=== PATIENT | male | born 1935 | race Caucasian/White ===

== ENCOUNTER 2016-11-17 13:14 | Outpatient (CLI) | payer MEDICARE, OTHER ==
[2016-11-17] MEDS ORDERED: BARIUM SULFATE 135 ML BOTTLE PO ONE (14:11)
[2016-11-17] MEDS ORDERED: BARIUM SULFATE 454 GM TUBE PO ONE (14:11)
== END 2016-11-17 13:15 | disposition home or self-care (01) ==
DX: R13.10 Dysphagia, unspecified (principal); Z85.810 Personal history of malignant neoplasm of tongue
CPT/HCPCS: 74230; 92611; A9270; G8996; G8997; G8998

== ENCOUNTER 2016-12-09 13:38 | Outpatient (CLI) | payer MEDICARE, OTHER | END 2016-12-09 13:39 | disposition home or self-care (01) | DX: M35.3 Polymyalgia rheumatica (principal) ==

== ENCOUNTER 2016-12-18 22:04 | Emergency (ER) | payer MEDICARE, OTHER | END 2016-12-19 | disposition home or self-care (01) | DX: S31.109A Unspecified open wound of abdominal wall, unspecified quadrant without penetration into peritoneal cavity, initial encounter (principal); X58.XXXA Exposure to other specified factors, initial encounter; I10 Essential (primary) hypertension; E03.9 Hypothyroidism, unspecified; Z79.02 Long term (current) use of antithrombotics/antiplatelets; Z79.82 Long term (current) use of aspirin ==

== ENCOUNTER 2016-12-22 13:02 | Outpatient (CLI) | payer MEDICARE, OTHER | END 2016-12-22 13:03 | disposition home or self-care (01) | DX: M35.3 Polymyalgia rheumatica (principal) ==

== ENCOUNTER 2017-01-07 12:49 | Outpatient (CLI) | payer MEDICARE, OTHER | END 2017-01-07 12:50 | disposition home or self-care (01) | DX: M35.3 Polymyalgia rheumatica (principal) ==

== ENCOUNTER 2017-02-05 12:51 | Outpatient (CLI) | payer MEDICARE, OTHER | END 2017-02-05 12:52 | disposition home or self-care (01) | DX: M35.3 Polymyalgia rheumatica (principal) ==

== ENCOUNTER 2017-03-24 13:55 | Outpatient (CLI) | payer MEDICARE, OTHER ==
--- NOTE | 2017-03-24 16:58 | XRAY Report ---
TWO VIEW CHEST: 03/24/2017 CLINICAL INDICATION: Cough. COMPARISON: 12/24/2015 Frontal and lateral views of the chest demonstrate a normal cardiac silhouette. Postoperative change s of previous cardiac surgery are stable. There is new parenchymal opacity at the left apex. The ap pearance would be unusual for pneumonia. Consider chest CT for further evaluation. No effusion or p neumothorax is present. IMPRESSION: POSTOPERATIVE CHANGES. NEW PARENCHYMAL OPACITY AT THE LEFT APEX, WHICH WOULD BE UNUSUAL FOR A PNEUMONIA. CONSIDER CHEST CT FOR FURTHER EVALUATION. JOB #: [id number] EXT JOB #:[id number]
== END 2017-03-24 13:56 | disposition home or self-care (01) ==
LOC: DI 13:55
PROVIDERS: ATTEND Internal Medicine
DX: R91.8 Other nonspecific abnormal finding of lung field (principal)
CPT/HCPCS: 71020

== ENCOUNTER 2017-03-26 13:01 | Outpatient (CLI) | payer MEDICARE, OTHER ==
[2017-03-26 13:25] LABS: CREATININE 1.4 mg/dL (0.6-1.2)
== END 2017-03-26 13:02 | disposition home or self-care (01) ==
LOC: LAB 13:01
PROVIDERS: ATTEND Internal Medicine
DX: Z79.899 Other long term (current) drug therapy (principal)
CPT/HCPCS: 36415; 82565

== ENCOUNTER 2017-03-26 14:35 | Outpatient (CLI) | payer MEDICARE, OTHER ==
[2017-03-26] MEDS ORDERED: IOPAMIDOL-300 100 ML VIAL IVP ONE (16:04)
--- NOTE | 2017-03-27 22:06 | CT Report ---
EXAM: CT CHEST EXAM DATE: 03/26/2017 04:05 p.m. CLINICAL HISTORY: Abnormal chest x-ray with left upper lobe density. COMPARISONS: Chest x-ray 03/24/2017, neck CT 01/13/2010. TECHNIQUE: Routine helical CT imaging was performed through the chest. IV contrast: 50 mL Isovue-300. Reconstructions: Coronal and sagittal. In accordance with CT protocol optimization, one or more of the following dose reduction techniques w ere utilized for this exam: automated exposure control, adjustment of mA and/or KV based on patient s ize, or use of iterative reconstructive technique. FINDINGS: Lungs/Pleura: Apical paramedian radiation fibrotic changes. No definitive suspicious mass or nodule s een. No pneumonia or effusion. Mild diffuse tracheobronchiectasis, with mild emphysema. Mediastinum: No bulky adenopathy. Previous aortic valve replacement. Coronary calcifications. Heart s ize mildly enlarged. Bones: Previous median sternotomy. Mild scoliosis. Visualized Abdomen: Unremarkable. Other: None. IMPRESSION: 1. 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 No definitive suspicious mass or nodule seen. 2. Mild emphysema and tracheobronchiectasis. 3. Previous aortic valve replacement. [facility] Referring Provider Line: [phone] SITE ID: [id number]
== END 2017-03-26 14:36 | disposition home or self-care (01) ==
LOC: DI 14:35
PROVIDERS: ATTEND Internal Medicine
DX: J43.9 Emphysema, unspecified (principal); J47.9 Bronchiectasis, uncomplicated; Z95.2 Presence of prosthetic heart valve
CPT/HCPCS: 36415; 71260; 82565; Q9967

== ENCOUNTER 2017-08-31 08:00 | Outpatient (CLI) | payer MEDICARE, OTHER | END 2017-08-31 08:01 | disposition home or self-care (01) | LOC: LAB.R 08:00 | PROVIDERS: ATTEND Internal Medicine | DX: M35.3 Polymyalgia rheumatica (principal) | CPT/HCPCS: 85651; 86140 ==

== ENCOUNTER 2017-11-13 04:26 | Outpatient (CLI) | payer MEDICARE, OTHER | END 2017-11-13 04:27 | disposition critical access hospital (66) | LOC: EMS 04:26 | PROVIDERS: ATTEND Surgery | DX: R11.2 Nausea with vomiting, unspecified (principal); M54.9 Dorsalgia, unspecified; R53.1 Weakness; R09.89 Other specified symptoms and signs involving the circulatory and respiratory systems; W18.30XA Fall on same level, unspecified, initial encounter; Y92.009 Unspecified place in unspecified non-institutional (private) residence as the place of occurrence of the external cause | CPT/HCPCS: A0425; A0429 ==

== ENCOUNTER 2017-11-13 04:52 | Inpatient (IN) | payer MEDICARE, OTHER ==
--- NOTE | 2017-11-13 05:06 | ED Physician Documentation ---
History of Present Illness - Stated complaint Stated Complaint: FLU LIKE SYMPTOMS - Chief complaint Chief Complaint: Fever - History obtained from History obtained from: Family, EMS, Other (patient unable to contribute to HPI due to lethargy and obtundation) - History of Present Illness Timing: Enter time (01:00), Today - Additonal information Additional information: patient is obtunded on my exam, thus the HPI is from patient's (in ED at bedside) and EMS report. says at 1 AM she woke due to patient shaking, followed by vomiting. she says he then stood up and quickly fell (unclear what caused him to fall) and that he hit his head. Medics report that they were able to ascertain from patient that he has generalized body aches and "feels like he was hit by a truck ". Per EMS report, patient initially had pulse ox of 90% but en route this steadily dropped to as low as 60s. On arrival to ED, pulse ox is lower 50s Review of Systems Unable to obtain: Other (limited HPI due to AMS) Constitutional: reports: Chills, Myalgias, Fatigue. denies: Fever (did not measure temperature at home) Respiratory: denies: Dyspnea, Cough GI: reports: Vomiting Neurologic: reports: Altered mental status, Head injury PD PAST MEDICAL HISTORY - Past Medical History Cardiovascular: Hypertension Endocrine/Autoimmune: HyPOthyroidism Psych: Depression - Past Surgical History Past Surgical History: Yes General: Appendectomy HEENT: Tonsil/Adenoidectomy - Present Medications Home Medications: Ambulatory Orders Medication Instructions Recorded Confirmed Aspirin/Caffein/Dihydrocodeine 2 cap PO DAILY 12/18/16 12/18/16 [Qqsimaw-Wdhp-Zwisgltkyjyad Cap] Celecoxib 200 mg PO DAILY 12/18/16 12/18/16 Cholecalciferol (Vitamin D3) 1 tab PO DAILY 12/18/16 12/18/16 [Vitamin D3] Clopidogrel Bisulfate [Plavix] 1 tab PO DAILY 12/18/16 12/18/16 Levothyroxine Sodium [Levo-T] 1 tab PO DAILY 12/18/16 12/18/16 Losartan [Cozaar] 12.5 mg PO DAILY 12/18/16 12/18/16 PARoxetine [Paxil] 10 mg PO DAILY 12/18/16 12/18/16 diazePAM [Valium] 2.5 mg PO DAILY 12/18/16 12/18/16 predniSONE [Prednisone] 15 mg PO QPM 12/18/16 12/18/16 - Allergies Allergies/Adverse Reactions: Allergies Allergy/AdvReac Type Severity Reaction Status Date / Time No Known Drug Allergies Allergy Verified 11/13/17 05:01 - Social History Does the pt smoke?: No Smoking Status: Never smoker Does the pt drink ETOH?: Yes Does the pt have substance abuse?: No - Immunizations Immunizations are current?: Yes - POLST Patient has POLST: No PD ED PE NORMAL - Vitals Vital signs reviewed: Yes - General General: No acute distress (despite low pulse ox (50s with good pleth that correlates with pulse), NAD including no respiratory distress; breathing regular and without apparent difficulty. no cyanosis), Well developed/nourished - HEENT HEENT: PERRL, EOMI, Other (dry mucous membranes) - Neck Neck: Supple, no meningeal sign - Cardiac Cardiac: RRR, Other (3/6 ANTONELLA most pronounced at base) - Respiratory Respiratory: No respiratory distress, Other (markedly decreased breath sound on right) - Abdomen Abdomen: Soft, Non tender, Non distended - Derm Derm: Normal color, Warm and dry, No rash - Extremities Extremities: No edema - Neuro Eye Opening: To Voice (briefly) Motor: Obeys Commands (obeys few commands and only with repeated prompting) Verbal: Incomprehensible GCS Score: 11 Results - Vitals Vitals: Vital Signs - 24 hr 11/13/17 11/13/17 11/13/17 04:54 06:00 06:30 Temperature 37.1 C Heart Rate 84 65 78 Respiratory 18 17 21 Rate Blood Pressure 92/44 L 83/41 L 114/66 O2 Saturation 77 L 95 98 11/13/17 11/13/17 11/13/17 06:59 07:22 07:51 Temperature Heart Rate 78 74 72 Respiratory 18 18 20 Rate Blood Pressure 101/54 L 101/59 L 92/74 O2 Saturation 98 96 96 Oxygen O2 Source Non-rebreather mask Oxygen Flow Rate 16 - Labs Labs: Laboratory Tests 11/13/17 11/13/17 11/13/17 05:00 05:10 05:15 WBC 4.3 L RBC 4.68 L Hgb 14.0 Hct 44.1 MCV 94.3 H MCH 30.0 MCHC 31.8 L RDW 14.4 Plt Count 170 MPV 9.6 Neut # 3.9 Lymph # 0.2 L [place] # 0.1 Eos # 0.0 Baso # 0.0 Absolute Nucleated RBC 0.01 Nucleated RBC % 0.2 D-Dimer Bld Gas Analysis Time 0512 Sample Site RIGHT RADIAL ABG pH 7.40 ABG pCO2 39 ABG pO2 47 L* ABG HCO3 23.0 ABG Total CO2 24.2 ABG O2 Saturation 83 L* ABG Oximetry Spot Check 82 ABG Base Excess -1.5 Carl Test POSITIVE O2 Delivery Device NON REBREATHER MASK O2 Liters/Min 15.00 Sodium Potassium Chloride Carbon Dioxide Anion Gap BUN Creatinine Estimated GFR (MDRD) Glucose Lactic Acid Calcium B-Natriuretic Peptide TSH Urine Color Urine Clarity Urine pH Ur Specific [place] Urine Protein Urine Glucose (UA) Urine Ketones Urine Occult Blood Urine Nitrite Urine Bilirubin Urine Urobilinogen Ur Leukocyte Esterase Ur Microscopic Review Urine Culture Comments Influenza A (Rapid) Negative Influenza B (Rapid) Negative Influenza Types A,B Ag - 11/13/17 11/13/17 11/13/17 05:15 05:15 05:15 WBC RBC Hgb Hct MCV MCH MCHC RDW Plt Count MPV Neut # Lymph # [place] # Eos # Baso # Absolute Nucleated RBC Nucleated RBC % D-Dimer Bld Gas Analysis Time Sample Site ABG pH ABG pCO2 ABG pO2 ABG HCO3 ABG Total CO2 ABG O2 Saturation ABG Oximetry Spot Check ABG Base Excess Carl Test O2 Delivery Device O2 Liters/Min Sodium 140 Potassium 3.7 Chloride 102 Carbon Dioxide 27 Anion Gap 11.0 BUN 25 H Creatinine 1.5 H Estimated GFR (MDRD) 45 L Glucose 133 H Lactic Acid 2.4 H Calcium 9.0 B-Natriuretic Peptide 151 H TSH Urine Color Urine Clarity Urine pH Ur Specific [place] Urine Protein Urine Glucose (UA) Urine Ketones Urine Occult Blood Urine Nitrite Urine Bilirubin Urine Urobilinogen Ur Leukocyte Esterase Ur Microscopic Review Urine Culture Comments Influenza A (Rapid) Influenza B (Rapid) Influenza Types A,B Ag 11/13/17 11/13/17 11/13/17 05:15 05:15 06:42 WBC RBC Hgb Hct MCV MCH MCHC RDW Plt Count MPV Neut # Lymph # [place] # Eos # Baso # Absolute Nucleated RBC Nucleated RBC % D-Dimer > 1050.0 H Bld Gas Analysis Time Sample Site ABG pH ABG pCO2 ABG pO2 ABG HCO3 ABG Total CO2 ABG O2 Saturation ABG Oximetry Spot Check ABG Base Excess Carl Test O2 Delivery Device O2 Liters/Min Sodium Potassium Chloride Carbon Dioxide Anion Gap BUN Creatinine Estimated GFR (MDRD) Glucose Lactic Acid Calcium B-Natriuretic Peptide TSH 3.65 Urine Color YELLOW Urine Clarity CLEAR Urine pH 6.0 Ur Specific [place] 1.025 Urine Protein NEGATIVE Urine Glucose (UA) NEGATIVE Urine Ketones NEGATIVE Urine Occult Blood NEGATIVE Urine Nitrite NEGATIVE Urine Bilirubin NEGATIVE Urine Urobilinogen 0.2 (NORMAL) Ur Leukocyte Esterase NEGATIVE Ur Microscopic Review NOT INDICATED Urine Culture Comments NOT INDICATED Influenza A (Rapid) Influenza B (Rapid) Influenza Types A,B Ag - Rads (name of study) chest xray Radiology: Prelim report reviewed, See rad report CT head Radiology: Prelim report reviewed, See rad report PD MEDICAL DECISION MAKING - ED course Complexity details: reviewed results, re-evaluated patient, considered differential, d/w patient, d/w family ED course: pulse ox steadily improved subsequent to NRB placement and remained in mid 90s for remainder of ED stay. This correlated with a steady improvement in his level of consciousness. His blood pressure was 160s SBP in field but gradually declined en route, was 90s on ED arrival and subsequently was 80s SBP for over an hour. This gradually responded to IV fluids and after 2liters NS SBP was 90s- 110s. Shortly before transfer to floor, however, SBP again dropped to lower 90s/ upper 80s and thus a bolus of third liter was ordered. Departure - Departure Disposition: 66 [facility] DC/Xfer Clinical Impression: Lethargy Pneumonia Qualifiers: Pneumonia type: due to unspecified organism Laterality: right Lung location: lower lobe of lung Qualified Code(s): J18.1 - Lobar pneumonia, unspecified organism Sepsis Qualifiers: Sepsis type: sepsis due to unspecified organism Qualified Code(s): A41.9 - Sepsis, unspecified organism Condition: Stable Discharge Date/Time: 11/13/17 09:56
[2017-11-13 05:26] LABS: ABG BASE EXCESS -1.5 mmol/L (-2.0-3.0); ABG PCO2 39 mmHg (34-45); ABG TCO2 24.2 MMOL/L (21.0-29.0); ALLEN TEST POSITIVE
[2017-11-13 05:29] LABS: ABG OXYGEN SATURATION 83 % (94-98); ABG PO2 47 mmHg (80-100)
[2017-11-13 05:41] LABS: BASOPHILS % (AUTO) 0.4 %; EOSINOPHILS % (AUTO) 0.2 %; LYMPHOCYTES # (AUTO) 0.2 10^3/uL (1.5-3.5); MEAN CORPUSCULAR HGB CONC 31.8 g/dL (32.0-36.0); MEAN CORPUSCULAR VOLUME 94.3 fL (80.0-94.0); MEAN PLATELET VOLUME 9.6 fL (7.4-11.4); MONOCYTES # (AUTO) 0.1 10^3/uL (0.0-1.0); MONOCYTES % (AUTO) 3.4 %; NEUTROPHILS # (AUTO) 3.9 10^3/uL (1.5-6.6); PLT - PLATELET COUNT 170 10^3/uL (130-450); RED BLOOD COUNT 4.68 10^6/uL (4.70-6.10); RED CELL DISTRIBUTION WIDTH 14.4 % (12.0-15.0); WHITE BLOOD COUNT 4.3 x10^3/uL (4.8-10.8)
[2017-11-13 05:48] LABS: CREATININE 1.5 mg/dL (0.6-1.2)
[2017-11-13] MEDS ORDERED: SODIUM CHLORIDE 0.9% 1,000 ML IV STA ×2 (05:53→06:44)
[2017-11-13] MEDS ORDERED: cefTRIAXone 1 GM VIAL IM STA (05:55)
[2017-11-13] MEDS ORDERED: VANCOMYCIN INJ 1 GM in SODIUM CHLORIDE 0.9% 250 ML IV STA (05:57)
[2017-11-13] MEDS ORDERED: LIDOCAINE 1% 2 ML VIAL SUBQ ONE (05:57)
[2017-11-13] MEDS ORDERED: OSELTAMIVIR 75 MG CAPSULE PO STA (06:30)
--- NOTE | 2017-11-13 06:36 | CT Preliminary Report ---
Exam: CT HEAD W/O IMPRESSION: Generalized age-related cortical atrophic changes without evidence of acute intracranial abnormality. [facility] SITE ID: [id number]
--- NOTE | 2017-11-13 06:41 | XRAY Preliminary Report ---
Exam: XR CHEST 1 VIEW X-RAY IMPRESSION: Large right mid and lower lung airspace disease, possibly pneumonia. Followup chest x-ray would be helpful at 4-6 weeks after appropriate treatment to assess for resolution. [facility] SITE ID: [id number]
--- NOTE | 2017-11-13 06:45 | CT Report ---
EXAM: CT HEAD EXAM DATE: 11/13/2017 06:17 AM. CLINICAL HISTORY: Altered mental status, head pain, fall, on anticoagulation. COMPARISON: CT angiogram of the head and neck from 11/23/2015. TECHNIQUE: Multiaxial CT images were obtained from the foramen magnum to the vertex. Reformats: Coron al. IV contrast: None. In accordance with CT protocol optimization, one or more of the following dose reduction techniques w ere utilized for this exam: automated exposure control, adjustment of mA and/or KV based on patient s ize, or use of iterative reconstructive technique. FINDINGS: Parenchyma: No intraparenchymal hemorrhage. No evidence of mass, midline shift, or CT findings of acu te infarction. Farr-white differentiation is distinct. Mild diffuse chronic microangiopathic white ma tter changes are evident. Extraaxial Spaces: Normal for age. No subdural or epidural collections identified. Ventricles: The ventricles and cortical sulci are mildly enlarged, consistent with age-related tissue loss. Sinuses and orbits: Mild mucosal thickening is noted in the paranasal sinuses, greatest in the left m axillary sinus. Postsurgical changes from cataract extractions are noted in the globes. The mastoid s inuses are not opacified. Bones: No evidence of fracture or calvarial defect. Other: Mild intracranial atherosclerosis is noted. IMPRESSION: Generalized age-related cortical atrophic changes without evidence of acute intracranial abnormality. [facility] Referring Provider Line: [phone] SITE ID: [id number]
--- NOTE | 2017-11-13 06:46 | XRAY Report ---
EXAM: CHEST RADIOGRAPHY EXAM DATE: 11/13/2017 06:15 AM. CLINICAL HISTORY: Hypoxia. COMPARISON: 03/24/2017, CT 03/26/2017. TECHNIQUE: 1 view. FINDINGS: Lungs/Pleura: Large airspace opacity within the mid and lower aspect of the right hemithorax. There i s mild elevation of the right hemidiaphragm as before. No significant left lung consolidation. No def inite pneumothorax or large effusion. Mild bilateral apical pleural thickening/scarring noted. Mediastinum: Calcific aortic atherosclerosis. Cardiac silhouette is within normal limits when account ing for lung volumes and technique. Cardiac valve replacement. Other: Prior median sternotomy. IMPRESSION: Large right mid and lower lung airspace disease, possibly pneumonia. Follow-up chest x-ray would be h elpful at 4-6 weeks after appropriate treatment to assess for resolution. [facility] Referring Provider Line: [phone] SITE ID: [id number]
[2017-11-13] MEDS: SODIUM CHLORIDE 0.9% 1,000 ML IV STA ×2 (06:50→10:05)
[2017-11-13 07:09] LABS: BILIRUBIN,URINE NEGATIVE (NEGATIVE); GLUCOSE, URINE (UA) NEGATIVE (NEGATIVE); KETONES,URINE (UA) NEGATIVE (NEGATIVE); LEUKOCYTE ESTERASE, URINE NEGATIVE (NEGATIVE); NITRITE,URINE NEGATIVE (NEGATIVE); OCCULT BLOOD,URINE NEGATIVE (NEGATIVE); PROTEIN,URINE NEGATIVE (NEGATIVE); UROBILINOGEN,URINE 0.2 (NORMAL) E.U./dL (NORMAL)
[2017-11-13 07:12] LABS: CLARITY,URINE CLEAR (CLEAR)
[2017-11-13] MEDS ORDERED: PHENAZOPYRIDINE 100 MG TABLET PO STA (07:30)
[2017-11-13] MEDS ORDERED: ACETAMINOPHEN 325 MG TABLET PO STA (07:30)
[2017-11-13] MEDS ORDERED: PROCHLORPERAZINE 10 MG/2 ML VIAL IVP PRN (07:56)
[2017-11-13] MEDS ORDERED: IPRATROPIUM/ALBUTEROL 3 ML NEB INH PRN (08:12)
--- NOTE | 2017-11-13 08:33 | HISTORY & PHYSICAL EXAMINATION ---
Chief Complaint - Chief Complaint Chief Complaint: chills and rigors History of Present Illness - Admitted From Admitted From:: home - History Obtained From History obtained from: Patient and - History of Present Illness HPI Comment/Other: Mr. April Reveles is a very pleasant and fit 82-year-old male who relates that he had worked out for over an hour yesterday and then also additionally had a long walk uphill following his workout. He denies any shortness of breath at that time and his exercise tolerance was excellent. Last night he awoke with Reiger' s and chills and was brought to the emergency department at [facility]. Chest x-ray showed that most of his right lung is sarah out secondary to a middle and lower lobe pneumonia. 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 - Substance History Use: Uses substance without health or social issues: Alcohol Abuse: Recurrent use of substance despite neg consequences: NONE Dependence: Experiences withdrawal or developed tolerances: NONE - POLST Patient has POLST: No POLST Status: Full Code Meds/Allgy - Home Medications Home Medications: Ambulatory Orders Medication Instructions Recorded Confirmed Aspirin/Caffein/Dihydrocodeine 2 cap PO DAILY 12/18/16 12/18/16 [Cwjkaez-Uldq-Ppfdujxcydyzu Cap] Celecoxib 200 mg PO DAILY 12/18/16 12/18/16 Cholecalciferol (Vitamin D3) 1 tab PO DAILY 12/18/16 12/18/16 [Vitamin D3] Clopidogrel Bisulfate [Plavix] 1 tab PO DAILY 12/18/16 12/18/16 Levothyroxine Sodium [Levo-T] 1 tab PO DAILY 12/18/16 12/18/16 Losartan [Cozaar] 12.5 mg PO DAILY 12/18/16 12/18/16 PARoxetine [Paxil] 10 mg PO DAILY 12/18/16 12/18/16 diazePAM [Valium] 2.5 mg PO DAILY 12/18/16 12/18/16 predniSONE [Prednisone] 15 mg PO QPM 12/18/16 12/18/16 - Allergies Allergies/Adverse Reactions: Allergies Allergy/AdvReac Type Severity Reaction Status Date / Time No Known Drug Allergies Allergy Verified 11/13/17 05:01 Review of Systems - Constitutional Constitutional: denies: Fatigue, Fever, Chills, Weakness - Eyes Eyes: denies: Pain, Irritation, Blurred vision - Ears, Nose & Throat Ears, Nose & Throat: denies: Ear pain, Hearing loss, Tinnitus, Vertigo, Nasal discharge - Cardiovascular Cariovascular: denies: Irregular heart rate, Palpitations, Chest pain, Edema - Respiratory Respiratory: denies: Cough, Sputum production, Wheezing, Hemoptysis, Orthopnea, SOB at rest, SOB with exertion - Gastrointestinal Gastrointestinal: denies: Abdominal pain, Abdominal distention, Constipation, Diarrhea, Change in bowel habits, Rectal bleeding - Genitourinary Genitourinary: denies: Dysuria, Frequency, Urgency, Hematuria - Musculoskeletal Musculoskeletal: denies: Muscle pain, Back pain, Muscle aches, Muscle weakness, Joint pain - Integumentary Integumentary: denies: Rash, Pruritis, Lesions, Dryness - Neurological Neurological: denies: General weakness, Focal weakness, Headache, Dizziness - Psychiatric Psychiatric: denies: Depression, Anxiety, Suicidal, Delusions, Hallucinations - Endocrine Endocrine: denies: Polyuria, Polydypsia, Polyphagia - Hematologic/Lymphatic Hematologic/Lymphatic: denies: Anemia, Bruising, Petechiae, Lymphadenopathy - All Other Systems All Other Systems: reports: Reviewed and negative Exam - Vital Signs Reviewed Vital Signs: Yes Vital Signs: Vital Signs x48h Temp Pulse Resp BP Pulse Ox 11/13/17 07:51 72 20 92/74 96 11/13/17 07:22 74 18 101/59 L 96 11/13/17 06:59 78 18 101/54 L 98 11/13/17 06:30 78 21 114/66 98 11/13/17 06:00 65 17 83/41 L 95 11/13/17 04:54 37.1 C 84 18 92/44 L 77 L - Physical Exam General Appearance: positive: No acute distress, Alert Eyes Bilateral: positive: Normal inspection, PERRL, EOMI, No lid inflammation, Conjunctivae nml ENT: positive: ENT inspection nml, Pharynx nml, No signs of dehydration Neck: positive: Nml inspection, Thyroid nml, No JVD, Trachea midline. negative : Thyromegaly Respiratory: positive: Chest non-tender, No respiratory distress, Rales, Other ( Right-sided lung sounds are essentially absent.). negative: Breath sounds nml, Wheezes Cardiovascular: positive: Regular rate & rhythm, No murmur, No gallop Peripheral Pulses: positive: 1+ Abdomen: positive: Non-tender, No organomegaly, Nml bowel sounds, No distention. negative: Guarding, Rebound Back: positive: Nml inspection. negative: CVA tenderness (R), CVA tenderness (L ) Skin: positive: Color nml, No rash, Warm, Dry. negative: Cyanosis Extremities: positive: Non-tender, Full ROM, Nml appearance, No pedal edema Neurologic/Psychiatric: positive: Oriented x3, CN's nml (2-12), Motor nml, Sensation nml, Mood/affect nml Conclusion/Plan - Problem List (1) Community acquired pneumonia Conclusion/Plan: We will admit the patient to the medical surgical floor on supplemental oxygen, continue with IV antibiotics and bronchodilators as needed and address any other comorbidities. (2) Polymyalgia rheumatica Conclusion/Plan: We will continue the patient on his current steroid dosing while here in the hospital. (3) Hypertension Conclusion/Plan: Controlled, continue Cozaar. (4) Hypothyroid Conclusion/Plan: We will check TSH level, otherwise continue home dosing level of levothyroxine. - Lab Results Lab results reviewed: Yes Fish Bones: 11/13/17 05:15 11/13/17 05:15 - Diagnostic Imaging Results Diagnostic Imaging Results: positive: Final report reviewed Diagnostic Imaging Results Comments: EXAM: CHEST RADIOGRAPHY EXAM DATE: 11/13/2017 06:15 AM. CLINICAL HISTORY: Hypoxia. COMPARISON: 03/24/2017, CT 03/26/2017. TECHNIQUE: 1 view. FINDINGS: Lungs/Pleura: Large airspace opacity within the mid and lower aspect of the right hemithorax. There is mild elevation of the right hemidiaphragm as before. No significant left lung consolidation. No definite pneumothorax or large effusion. Mild bilateral apical pleural thickening/ scarring noted. Mediastinum: Calcific aortic atherosclerosis. Cardiac silhouette is within normal limits when accounting for lung volumes and technique. Cardiac valve replacement. Other: Prior median sternotomy. IMPRESSION: Large right mid and lower lung airspace disease, possibly pneumonia. Follow-up chest x-ray would be helpful at 4-6 weeks after appropriate treatment to assess for resolution. CT HEAD EXAM DATE: 11/13/2017 06:17 AM. CLINICAL HISTORY: Altered mental status, head pain, fall, on anticoagulation. COMPARISON: CT angiogram of the head and neck from 11/23/2015. TECHNIQUE: Multiaxial CT images were obtained from the foramen magnum to the vertex. Reformats: Coronal. IV contrast: None. In accordance with CT protocol optimization, one or more of the following dose reduction techniques were utilized for this exam: automated exposure control, adjustment of mA and/or KV based on patient size, or use of iterative reconstructive technique. FINDINGS: Parenchyma: No intraparenchymal hemorrhage. No evidence of mass, midline shift, or CT findings of acute infarction. Farr-white differentiation is distinct. Mild diffuse chronic microangiopathic white matter changes are evident. Extraaxial Spaces: Normal for age. No subdural or epidural collections identified. Ventricles: The ventricles and cortical sulci are mildly enlarged, consistent with age-related tissue loss. Sinuses and orbits: Mild mucosal thickening is noted in the paranasal sinuses, greatest in the left maxillary sinus. Postsurgical changes from cataract extractions are noted in the globes. The mastoid sinuses are not opacified. Bones: No evidence of fracture or calvarial defect. Other: Mild intracranial atherosclerosis is noted. IMPRESSION: Generalized age-related cortical atrophic changes without evidence of acute intracranial abnormality. Core Measures - Anticipated LOS I expect patient to be DC'd or transferred within 96 hours.: Yes - DVT/VTE - Prophylaxis VTE/DVT Device ordered at admit?: Yes
[2017-11-13] MEDS: AZITHROMYCIN INJ 500 MG in SODIUM CHLORIDE 0.9% 250 ML IV SCH (10:05)
[2017-11-13] MEDS ORDERED: SALIVA STIMULANT SPRAY 44.3 ML BOTTLE PO PRN (11:06)
[2017-11-13] MEDS: SODIUM CHLORIDE FLUSH 0.9% 10 ML SYRINGE IVP SCH ×2 (11:38→21:11)
[2017-11-13] MEDS: CLOPIDOGREL 75 MG TABLET PO SCH (13:19)
[2017-11-13] MEDS: LOSARTAN 50 MG TABLET PO SCH (13:19)
[2017-11-13] MEDS: CELECOXIB 100 MG CAPSULE PO SCH ×2 (13:19→13:24)
[2017-11-13] MEDS: PARoxetine 10 MG TABLET PO SCH (13:20)
[2017-11-13] MEDS: oxyCODONE 5 MG TABLET PO PRN ×2 (14:49→19:11)
[2017-11-13] MEDS: predniSONE 5 MG TABLET PO SCH (21:11)
[2017-11-14 05:43] LABS: HGB - HEMOGLOBIN 11.1 g/dL (14.0-18.0); MEAN CORPUSCULAR HEMOGLOBIN 30.8 pg (27.0-31.0); MEAN CORPUSCULAR HGB CONC 32.6 g/dL (32.0-36.0); MEAN CORPUSCULAR VOLUME 94.4 fL (80.0-94.0); MEAN PLATELET VOLUME 10.5 fL (7.4-11.4); RED BLOOD COUNT 3.6 10^6/uL (4.70-6.10); RED CELL DISTRIBUTION WIDTH 14.6 % (12.0-15.0); WHITE BLOOD COUNT 10.6 x10^3/uL (4.8-10.8)
[2017-11-14 05:50] LABS: CALCIUM 8.1 mg/dL (8.5-10.3); CREATININE 1.5 mg/dL (0.6-1.2)
[2017-11-14] MEDS: SODIUM CHLORIDE FLUSH 0.9% 10 ML SYRINGE IVP SCH ×3 (06:40→20:54)
[2017-11-14] MEDS: LEVOTHYROXINE 75 MCG TABLET PO SCH (06:40)
[2017-11-14] MEDS: SODIUM CHLORIDE FLUSH 0.9% 10 ML SYRINGE IVP PRN (06:40)
[2017-11-14] MEDS: LEVOTHYROXINE 100 MCG TABLET PO SCH (06:40)
[2017-11-14] MEDS: CELECOXIB 100 MG CAPSULE PO SCH (09:00)
[2017-11-14] MEDS ORDERED: CHOLECALCIFEROL 1,000 UNIT TABLET PO SCH (09:00)
[2017-11-14] MEDS: cefTRIAXone 1 GM in SODIUM CHLORIDE 0.9% MINIBAG 100 ML IV SCH (09:00)
[2017-11-14] MEDS: LOSARTAN 50 MG TABLET PO SCH (09:00)
[2017-11-14] MEDS ORDERED: diazePAM 5 MG TABLET PO SCH (09:00)
[2017-11-14] MEDS: PARoxetine 10 MG TABLET PO SCH (09:00)
[2017-11-14] MEDS: CLOPIDOGREL 75 MG TABLET PO SCH (09:00)
[2017-11-14] MEDS: D5.45NS W/20 MEQ KCL 1,000 ML IV SCH ×2 (09:00→20:59)
[2017-11-14] MEDS: AZITHROMYCIN INJ 500 MG in SODIUM CHLORIDE 0.9% 250 ML IV SCH (10:56)
--- NOTE | 2017-11-14 13:57 | XRAY Report ---
EXAM: CHEST RADIOGRAPHY EXAM DATE: 11/14/2017 01:33 PM. CLINICAL HISTORY: R sided pneumonia. COMPARISON: 11/13/2017. TECHNIQUE: 2 views. FINDINGS: Lungs/Pleura: There is improved aeration of the right lung since previous. There is persistent right midlung opacity. There is mild blunting of the right costophrenic angle. The right diaphragm appears elevated. Left lung appears grossly clear. Mediastinum: Heart size appears normal. Previous sternotomy and aortic valve replacement. Other: None. IMPRESSION: 1. Persistent right perihilar consolidation and small right pleural effusion. Improved aeration of ri ght lung with no new airspace disease. [facility] Referring Provider Line: [phone] SITE ID: [id number]
--- NOTE | 2017-11-14 13:57 | XRAY Preliminary Report ---
Exam: XR CHEST 2 VIEW X-RAY IMPRESSION: 1. Persistent right perihilar consolidation and small right pleural effusion. Improved aeration of ri ght lung with no new airspace disease. [facility] SITE ID: [id number]
[2017-11-14] MEDS: POLYETHYLENE GLYCOL 3350 17 GM PACKET PO SCH (14:08)
[2017-11-14] MEDS: oxyCODONE 5 MG TABLET PO PRN (16:32)
--- NOTE | 2017-11-14 16:34 | PROVIDER PROGRESS NOTE ---
Subjective - Prog Note Date Prog Note Date: 11/14/17 Prog Note Time: 11:30 - Subjective Pt reports feeling: Improved (The patient still feels weak and not near his baseline but he is less short of breath today and denies any pain.) Current Medications - Current Medications Current Medications: Acetaminophen, azithromycin, ceftriaxone, celecoxib, cholecalciferol, Plavix, D5 half-normal saline, diazepam, ibuprofen, levothyroxine, lidocaine, losartan, sodium chloride,Oxycodone, paroxetine, polyethylene glycol, prednisone, Compazine, Biotene mouth spray, vancomycin Objective - Vital Signs/Intake & Output Reviewed Vital Signs: Yes Vital Signs: Vital Signs x48h Temp Pulse Resp BP Pulse Ox 11/14/17 15:44 37.4 C 70 20 132/59 H 99 11/14/17 13:12 36.8 C 71 20 112/51 L 96 Intake & Output: Intake & Output 11/11/17 11/12/17 11/13/17 11/14/17 23:59 23:59 23:59 23:59 Intake Total 2600 350 Output Total 350 Balance 2600 0 - Objective General Appearance: positive: No acute distress, Alert Eyes Bilateral: positive: Normal inspection, PERRL, EOMI, No lid inflammation, Conjunctivae nml, No scleral icterus ENT: positive: ENT inspection nml, Pharynx nml, Dry mucous membranes, Other ( 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 negative : Thyromegaly Respiratory: positive: Chest non-tender, No respiratory distress, Breath sounds nml. negative: Wheezes, Rales, Rhonchi Cardiovascular: positive: Regular rate & rhythm, No murmur, No gallop Abdomen: positive: Non-tender, No organomegaly, Nml bowel sounds, No distention. negative: Guarding, Rebound Back: positive: Nml inspection. negative: CVA tenderness (R), CVA tenderness (L ) Skin: positive: Color nml, No rash, Warm, Dry. negative: Cyanosis Extremities: positive: Non-tender, Full ROM, Nml appearance, No pedal edema Neurologic/Psychiatric: positive: Oriented x3, CN's nml (2-12), Motor nml, Sensation nml, Mood/affect nml - Lab Results Fish Bones: 11/14/17 05:12 11/14/17 05:12 Other Labs: Lab Results x24hrs 11/14/17 11/14/17 Range/Units 05:12 05:12 WBC 10.6 (4.8-10.8) x10^3/uL RBC 3.60 L (4.70-6.10) 10^6/uL Hgb 11.1 L (14.0-18.0) g/dL Hct 34.0 L (42.0-52.0) % MCV 94.4 H (80.0-94.0) fL MCH 30.8 (27.0-31.0) pg MCHC 32.6 (32.0-36.0) g/dL RDW 14.6 (12.0-15.0) % Plt Count 140 (130-450) 10^3/uL MPV 10.5 (7.4-11.4) fL Sodium 138 (135-145) mmol/L Potassium 4.2 (3.5-5.0) mmol/L Chloride 106 (101-111) mmol/L Carbon Dioxide 25 (21-32) mmol/L Anion Gap 7.0 (6-13) BUN 32 H (6-20) mg/dL Creatinine 1.5 H (0.6-1.2) mg/dL Estimated GFR (MDRD) 45 L (>89) Glucose 106 H (70-100) mg/dL Calcium 8.1 L (8.5-10.3) mg/dL - Diagnostic Imaging Diagnostic Imaging Comments: EXAM: CHEST RADIOGRAPHY EXAM DATE: 11/14/2017 01:33 PM. CLINICAL HISTORY: R sided pneumonia. COMPARISON: 11/13/2017. TECHNIQUE: 2 views. FINDINGS: Lungs/Pleura: There is improved aeration of the right lung since previous. There is persistent right midlung opacity. There is mild blunting of the right costophrenic angle. The right diaphragm appears elevated. Left lung appears grossly clear. Mediastinum: Heart size appears normal. Previous sternotomy and aortic valve replacement. Other: None. IMPRESSION: 1. Persistent right perihilar consolidation and small right pleural effusion. Improved aeration of right lung with no new airspace disease. EXAM: CHEST RADIOGRAPHY EXAM DATE: 11/13/2017 06:15 AM. CLINICAL HISTORY: Hypoxia. COMPARISON: 03/24/2017, CT 03/26/2017. TECHNIQUE: 1 view. FINDINGS: Lungs/Pleura: Large airspace opacity within the mid and lower aspect of the right hemithorax. There is mild elevation of the right hemidiaphragm as before. No significant left lung consolidation. No definite pneumothorax or large effusion. Mild bilateral apical pleural thickening/ scarring noted. Mediastinum: Calcific aortic atherosclerosis. Cardiac silhouette is within normal limits when accounting for lung volumes and technique. Cardiac valve replacement. Other: Prior median sternotomy. IMPRESSION: Large right mid and lower lung airspace disease, possibly pneumonia. Follow-up chest x-ray would be helpful at 4-6 weeks after appropriate treatment to assess for resolution. Assessment/Plan - Problem List (1) Community acquired pneumonia Impression: The patient's chest x-ray has cleared significantly over 24 hours however clinically the patient is still quite short of breath and weak. We will continue the current antibiotic regimen, bronchodilator regimen, and supplemental oxygen regimen.`` Qualifiers: Laterality: right Lung location: middle lobe of lung Qualified Code(s): J18.1 - Lobar pneumonia, unspecified organism (2) Polymyalgia rheumatica Impression: We will continue the patient on the low-dose steroids for the polymyalgia (3) Hypertension Impression: Well-managed with the exception of some diastolic numbers in the low 50s. No need for any changes to the patient's medication regimen at this time. Qualifiers: Hypertension type: essential hypertension Qualified Code(s): I10 - Essential (primary) hypertension (4) Hypothyroid Impression: The patient's TSH is 3.65no intervention necessary at this time.
[2017-11-14] MEDS: IBUPROFEN 600 MG TABLET PO SCH ×2 (18:33→23:50)
[2017-11-14] MEDS ORDERED: A & D OINTMENT 5 GM PACKET TOP PRN (18:41)
[2017-11-14] MEDS: diazePAM 5 MG TABLET PO SCH (20:54)
[2017-11-14] MEDS: predniSONE 5 MG TABLET PO SCH (20:54)
[2017-11-15] MEDS: D5.45NS W/20 MEQ KCL 1,000 ML IV SCH ×2 (04:36→10:23)
[2017-11-15 06:11] LABS: HGB - HEMOGLOBIN 10.9 g/dL (14.0-18.0); MEAN CORPUSCULAR HEMOGLOBIN 30.9 pg (27.0-31.0); MEAN CORPUSCULAR HGB CONC 32.7 g/dL (32.0-36.0); MEAN CORPUSCULAR VOLUME 94.4 fL (80.0-94.0); MEAN PLATELET VOLUME 10.2 fL (7.4-11.4); RED BLOOD COUNT 3.54 10^6/uL (4.70-6.10); RED CELL DISTRIBUTION WIDTH 14.7 % (12.0-15.0); WHITE BLOOD COUNT 10.7 x10^3/uL (4.8-10.8)
[2017-11-15] MEDS ORDERED: BENZOCAINE/MENTHOL LOZENGE MM PRN (06:17)
[2017-11-15 06:22] LABS: CREATININE 1.2 mg/dL (0.6-1.2)
[2017-11-15] MEDS: IBUPROFEN 600 MG TABLET PO SCH ×3 (06:44→21:04)
[2017-11-15] MEDS: LEVOTHYROXINE 75 MCG TABLET PO SCH (06:45)
[2017-11-15] MEDS: LEVOTHYROXINE 100 MCG TABLET PO SCH (06:45)
[2017-11-15] MEDS: SODIUM CHLORIDE FLUSH 0.9% 10 ML SYRINGE IVP SCH ×3 (06:47→21:11)
[2017-11-15] MEDS: CELECOXIB 100 MG CAPSULE PO SCH ×2 (08:29→13:56)
[2017-11-15] MEDS: CLOPIDOGREL 75 MG TABLET PO SCH (08:29)
[2017-11-15] MEDS: LOSARTAN 50 MG TABLET PO SCH ×2 (08:30→12:07)
[2017-11-15] MEDS: PARoxetine 10 MG TABLET PO SCH (08:30)
[2017-11-15] MEDS: cefTRIAXone 1 GM in SODIUM CHLORIDE 0.9% MINIBAG 100 ML IV SCH (08:35)
[2017-11-15] MEDS: AZITHROMYCIN INJ 500 MG in SODIUM CHLORIDE 0.9% 250 ML IV SCH (09:40)
--- NOTE | 2017-11-15 10:38 | XRAY Report ---
TWO VIEW CHEST: 11/15/2017 CLINICAL INDICATION: Right-sided pneumonia. COMPARISON: 11/14/2017. FINDINGS: Frontal and lateral views of the chest demonstrate stable changes of previous cardiac surgery. Right perihilar consolidation persists, with small right effusion. The left lung remains clear. No pneumothorax. IMPRESSION: STABLE RIGHT PERIHILAR INFILTRATE AND SMALL RIGHT EFFUSION. TD: 11/15/2017 10:37
--- NOTE | 2017-11-15 11:03 | PROVIDER PROGRESS NOTE ---
Subjective - Prog Note Date Prog Note Date: 11/15/17 Prog Note Time: 11:01 - Subjective Pt reports feeling: Improved (Patient is down to 4 L/min supplemental oxygen from 9 L yesterday. He is less short of breath when speaking and says he feels more energy today.He denies any pain, says his appetite is good and he is moving his bowels. He says he slept well.) Current Medications - Current Medications Current Medications: Acetaminophen, azithromycin, ceftriaxone, celecoxib, cholecalciferol, Plavix, D5 half-normal saline, diazepam, ibuprofen, levothyroxine, lidocaine, losartan, sodium chloride,Oxycodone, paroxetine, polyethylene glycol, prednisone, Compazine, Biotene mouth spray, vancomycin Objective - Vital Signs/Intake & Output Reviewed Vital Signs: Yes Vital Signs: Vital Signs x48h Temp Pulse Resp BP Pulse Ox 11/15/17 07:44 36.7 C 66 18 140/64 H 99 11/15/17 05:00 36.7 C 65 18 137/68 H 99 Intake & Output: Intake & Output 11/12/17 11/13/17 11/14/17 11/15/17 23:59 23:59 23:59 23:59 Intake Total 2600 1470 2091.250 Output Total 650 1750 Balance 2600 820 341.250 - Objective General Appearance: positive: No acute distress, Alert Eyes Bilateral: positive: Normal inspection, PERRL, EOMI, No lid inflammation, Conjunctivae nml, No scleral icterus ENT: positive: ENT inspection nml, Pharynx nml, No signs of dehydration Neck: positive: Nml inspection, Thyroid nml, No JVD, Trachea midline. negative : Thyromegaly Respiratory: positive: Chest non-tender, No respiratory distress, Rales. negative: Wheezes, Rhonchi Cardiovascular: positive: Regular rate & rhythm, No murmur, No gallop Abdomen: positive: Non-tender, No organomegaly, Nml bowel sounds, No distention. negative: Guarding, Rebound Back: positive: Nml inspection. negative: CVA tenderness (R), CVA tenderness (L ) Skin: positive: Color nml, No rash, Warm, Dry. negative: Cyanosis Extremities: positive: Non-tender, Full ROM, Nml appearance, No pedal edema Neurologic/Psychiatric: positive: Oriented x3, CN's nml (2-12), Motor nml, Sensation nml, Mood/affect nml - Lab Results Fish Bones: 11/15/17 05:20 11/15/17 05:20 Other Labs: Lab Results x24hrs 11/15/17 11/15/17 Range/Units 05:20 05:20 WBC 10.7 (4.8-10.8) x10^3/uL RBC 3.54 L (4.70-6.10) 10^6/uL Hgb 10.9 L (14.0-18.0) g/dL Hct 33.4 L (42.0-52.0) % MCV 94.4 H (80.0-94.0) fL MCH 30.9 (27.0-31.0) pg MCHC 32.7 (32.0-36.0) g/dL RDW 14.7 (12.0-15.0) % Plt Count 125 L (130-450) 10^3/uL MPV 10.2 (7.4-11.4) fL Sodium 136 (135-145) mmol/L Potassium 4.3 (3.5-5.0) mmol/L Chloride 107 (101-111) mmol/L Carbon Dioxide 25 (21-32) mmol/L Anion Gap 4.0 L (6-13) BUN 18 (6-20) mg/dL Creatinine 1.2 (0.6-1.2) mg/dL Estimated GFR (MDRD) 58 L (>89) Glucose 127 H (70-100) mg/dL Calcium 8.0 L (8.5-10.3) mg/dL - Diagnostic Imaging Diagnostic Imaging Results: positive: Final report reviewed Diagnostic Imaging Comments: EXAM: CHEST RADIOGRAPHY EXAM DATE: 11/14/2017 01:33 PM. CLINICAL HISTORY: R sided pneumonia. COMPARISON: 11/13/2017. TECHNIQUE: 2 views. FINDINGS: Lungs/Pleura: There is improved aeration of the right lung since previous. There is persistent right midlung opacity. There is mild blunting of the right costophrenic angle. The right diaphragm appears elevated. Left lung appears grossly clear. Mediastinum: Heart size appears normal. Previous sternotomy and aortic valve replacement. Other: None. IMPRESSION: 1. Persistent right perihilar consolidation and small right pleural effusion. Improved aeration of right lung with no new airspace disease. EXAM: CHEST RADIOGRAPHY EXAM DATE: 11/13/2017 06:15 AM. CLINICAL HISTORY: Hypoxia. COMPARISON: 03/24/2017, CT 03/26/2017. TECHNIQUE: 1 view. FINDINGS: Lungs/Pleura: Large airspace opacity within the mid and lower aspect of the right hemithorax. There is mild elevation of the right hemidiaphragm as before. No significant left lung consolidation. No definite pneumothorax or large effusion. Mild bilateral apical pleural thickening/ scarring noted. Mediastinum: Calcific aortic atherosclerosis. Cardiac silhouette is within normal limits when accounting for lung volumes and technique. Cardiac valve replacement. Other: Prior median sternotomy. IMPRESSION: Large right mid and lower lung airspace disease, possibly pneumonia. Follow-up chest x-ray would be helpful at 4-6 weeks after appropriate treatment to assess for resolution. Assessment/Plan - Problem List (1) Community acquired pneumonia Impression: The patient's chest x-ray has cleared significantly over 48 hours however clinically the patient is still quite short of breath and weak. We will continue the current antibiotic regimen, bronchodilator regimen, and supplemental oxygen regimen. Qualifiers: Laterality: right Lung location: middle lobe of lung Qualified Code(s): J18.1 - Lobar pneumonia, unspecified organism (2) Polymyalgia rheumatica Impression: We will continue the patient on the low-dose steroids for the polymyalgia rheumatica (3) Hypertension Impression: The patient is blood pressure has been elevated. His loan blood pressure medication is Cozaar, however he is on an extremely low dosage. We will double it to 25 mg which is still half of the recommended starting dosage and monitor the patient's blood pressure closely. Qualifiers: Hypertension type: essential hypertension Qualified Code(s): I10 - Essential (primary) hypertension (4) Hypothyroid Impression: The patient's TSH is 3.65, no intervention necessary at this time.
[2017-11-15] MEDS: CHOLECALCIFEROL 1,000 UNIT TABLET PO SCH (11:35)
[2017-11-15] MEDS ORDERED: FUROSEMIDE 40 MG TABLET PO STA (11:53)
[2017-11-15] MEDS: diazePAM 5 MG TABLET PO SCH (21:09)
[2017-11-15] MEDS: predniSONE 5 MG TABLET PO SCH (21:10)
[2017-11-15] MEDS: SODIUM CHLORIDE FLUSH 0.9% 10 ML SYRINGE IVP PRN (21:11)
[2017-11-15] MEDS: POLYETHYLENE GLYCOL 3350 17 GM PACKET PO SCH (23:31)
[2017-11-16] MEDS: IBUPROFEN 600 MG TABLET PO SCH ×3 (01:16→12:04)
[2017-11-16] MEDS: D5.45NS W/20 MEQ KCL 1,000 ML IV SCH ×3 (01:17→11:38)
[2017-11-16] MEDS: SODIUM CHLORIDE FLUSH 0.9% 10 ML SYRINGE IVP SCH (05:43)
[2017-11-16 06:11] LABS: HGB - HEMOGLOBIN 13.1 g/dL (14.0-18.0); MEAN CORPUSCULAR HEMOGLOBIN 30.9 pg (27.0-31.0); MEAN CORPUSCULAR HGB CONC 32.5 g/dL (32.0-36.0); MEAN PLATELET VOLUME 10.1 fL (7.4-11.4); RED BLOOD COUNT 4.23 10^6/uL (4.70-6.10); RED CELL DISTRIBUTION WIDTH 14.5 % (12.0-15.0); WHITE BLOOD COUNT 10.5 x10^3/uL (4.8-10.8)
[2017-11-16 06:12] LABS: CALCIUM 8.7 mg/dL (8.5-10.3); CREATININE 1.1 mg/dL (0.6-1.2)
[2017-11-16] MEDS: LEVOTHYROXINE 100 MCG TABLET PO SCH (06:14)
[2017-11-16] MEDS: LEVOTHYROXINE 75 MCG TABLET PO SCH (06:14)
--- NOTE | 2017-11-16 06:39 | XRAY Preliminary Report ---
Exam: XR CHEST 2 VIEW X-RAY IMPRESSION: 1. Right lung opacity is similar compared with the prior examination. 2. Small pleural effusions. [facility] SITE ID: [id number]
--- NOTE | 2017-11-16 06:40 | XRAY Report ---
EXAM: CHEST RADIOGRAPHY EXAM DATE: 11/16/2017 06:32 AM. CLINICAL HISTORY: R sided pneumonia. COMPARISON: 11/15/2017. TECHNIQUE: 2 views. FINDINGS: Lungs/Pleura: Elevated right hemidiaphragm. Right lung opacity is similar compared with the prior exa m. Small pleural effusions. No pneumothorax. Mediastinum: Heart size is normal. Aortic valve prosthesis. Tortuous atherosclerotic aorta. Other: Osteopenia. Median sternotomy. IMPRESSION: 1. Right lung opacity is similar compared with the prior examination. 2. Small pleural effusions. [facility] Referring Provider Line: [phone] SITE ID: [id number]
[2017-11-16] MEDS: POLYETHYLENE GLYCOL 3350 17 GM PACKET PO SCH (08:15)
[2017-11-16] MEDS: cefTRIAXone 1 GM in SODIUM CHLORIDE 0.9% MINIBAG 100 ML IV SCH (08:16)
[2017-11-16] MEDS: LOSARTAN 50 MG TABLET PO SCH (08:16)
[2017-11-16] MEDS: PARoxetine 10 MG TABLET PO SCH (08:17)
[2017-11-16] MEDS: CHOLECALCIFEROL 1,000 UNIT TABLET PO SCH (08:17)
[2017-11-16] MEDS: CELECOXIB 100 MG CAPSULE PO SCH (08:17)
[2017-11-16] MEDS: CLOPIDOGREL 75 MG TABLET PO SCH (08:17)
--- NOTE | 2017-11-16 11:13 | Discharge Plan ---
Discharge Plan Disposition: Home, Self Care Condition: Stable Diet: Regular Activity Restrictions: Activity as Tolerated Shower Restrictions: No Driving Restrictions: No Weight Bearing: Full Weight Additional Instructions or Follow Up instructions: You will require oxygen at home. We will also ask home health to see you for a few weeks. Follow-up with Dr. Webber this week. You will also be taking antibiotics for the right middle lobe pneumonia that brought you into the hospital. Make sure that you complete the prescription. No Smoking: If you smoke, Please STOP! Call for help. Follow-up with: Willie Webber MD [Primary Care Provider] -
--- NOTE | 2017-11-16 11:18 | DISCHARGE SUMMARY ---
"Discharge Summary Admit Date: 11/13/17 Discharge Date: 11/16/17 Discharging Provider: Hannah Doyle DO Primary Care Provider: Willie Webber MD Code Status: Attempt Resuscitation Condition at Discharge: Stable Discharge Disposition: 01 Home, Self Care - DIAGNOSES Admission Diagnoses: 1. Community-acquired pneumonia 2. Polymyalgia rheumatica 3. Hypertension 4. Hypothyroidism Discharge Diagnoses with Status of Each Condition: 1. Community-acquired pneumonia- The patient is not hypoxic at rest with room air oxygen saturation of 90%, however with exertion on room air his sats declined to 86%. With oxygen at 2 L/min on exertion the patient's oxygen saturation improved to 91%. I am ordering home oxygen at 2 L/min via nasal cannula with exertion to treat his resolving pneumonia and COPD. The patient has improved clinically significantly over the last 3 days. His chest x-ray still shows a persistent infiltrate however it is markedly improved from his admission chest x-ray. We will send the patient home on azithromycin and Levaquin oral antibiotics and he will follow-up with Dr. Webber next week. 2. Polymyalgia rheumatica- Continue home regimen of oral steroids. 3. Hypertension -Patient's blood pressure has been elevated and we have adjusted his Cozaar. We will send him home on 100 mg of Cozaar daily along with 25 mg of hydrochlorothiazide. 4. Hypothyroidism- The patient's TSH is 3.65, no intervention necessary at this time. - HPI History of Present Illness: Mr. April Reveles is a very pleasant and fit 82-year-old male who relates that he had worked out for over an hour yesterday and then also additionally had a long walk uphill following his workout. He denies any shortness of breath at that time and his exercise tolerance was excellent. Last night he awoke with Reiger' s and chills and was brought to the emergency department at [facility]. Chest x-ray showed that most of his right lung is sarah out secondary to a middle and lower lobe pneumonia. - HOSPITAL COURSE Hospital Course: The patient was admitted to the hospital and started on IV antibiotics, supplemental oxygen, bronchodilators, and steroids. His chest x-ray showed a remarkable improvement after just 24 hours and he has continued to steadily improve clinically. Will be discharged home on supplemental oxygen and will follow up with his primary care provider next week. - ALLERGIES Allergies/Adverse Reactions: Allergies Allergy/AdvReac Type Severity Reaction Status Date / Time No Known Drug Allergies Allergy Verified 11/13/17 05:01 - MEDICATIONS Home Medications: Ambulatory Orders Medication Instructions Recorded Confirmed Celecoxib 200 mg PO DAILY 12/18/16 11/16/17 Cholecalciferol (Vitamin D3) 1,000 unit PO DAILY 12/18/16 11/16/17 [Vitamin D3] Clopidogrel Bisulfate [Plavix] 75 tab PO DAILY 12/18/16 11/16/17 Levothyroxine Sodium [Levo-T] 175 mcg PO DAILY 12/18/16 11/16/17 Losartan [Cozaar] 12.5 mg PO DAILY 12/18/16 11/16/17 PARoxetine [Paxil] 10 mg PO DAILY 12/18/16 11/16/17 diazePAM [Valium] 2.5 mg PO DAILY PRN 12/18/16 11/16/17 predniSONE [Prednisone] 5 mg PO QPM 12/18/16 11/16/17 Home Medications Other | Comments: Levaquin, 750 mg by mouth daily, azithromycin, 250 mg by mouth daily, home oxygen as needed. - PHYSICAL EXAM AT DISCHARGE General Appearance: positive: No acute distress, Alert Eyes Bilateral: positive: Normal inspection, PERRL, EOMI, No lid inflammation, Conjunctivae nml, No scleral icterus ENT: positive: ENT inspection nml, Pharynx nml, No signs of dehydration Neck: positive: Nml inspection, Thyroid nml, No JVD, Trachea midline. negative : Thyromegaly Respiratory: positive: Chest non-tender, No respiratory distress, Breath sounds nml. negative: Wheezes, Rales, Rhonchi Cardiovascular: positive: Regular rate & rhythm, No murmur, No gallop Peripheral Pulses: positive: 1+ Abdomen: positive: Non-tender, No organomegaly, Nml bowel sounds, No distention. negative: Guarding, Rebound Back: positive: Nml inspection. negative: CVA tenderness (R), CVA tenderness (L ) Skin: positive: Color nml, No rash, Warm, Dry. negative: Cyanosis Extremities: positive: Non-tender, Full ROM, Nml appearance. negative: No pedal edema Neurologic/Psychiatric: positive: Oriented x3, CN's nml (2-12), Motor nml, Sensation nml, Mood/affect nml - LABS Result Diagrams: 11/16/17 05:42 11/16/17 05:50 - FOLLOW UP Follow Up: With Dr. Webber within 1 week. - TIME SPENT Time Spent in Discharge (Minutes): 35"
[2017-11-16] MEDS ORDERED: LOSARTAN 50 MG TABLET PO SCH (11:25)
[2017-11-16 12:51] VITALS: BP 172/74
[2017-11-17] MEDS ORDERED: levoFLOXacin 250 MG TABLET PO SCH (09:00)
[2017-11-17] MEDS ORDERED: hydroCHLOROthiazide 25 MG TABLET PO SCH (09:00)
[2017-11-17] MEDS ORDERED: AZITHROMYCIN 250 MG TABLET PO SCH (09:00)
== END 2017-11-16 13:10 | disposition home or self-care (01) | DRG 194 ==
LOC: EDUNIT# → SUPCPDRO 04:52 → ED 04:52 → MS2 07:56
PROVIDERS: ADMIT Hospitalist; ATTEND Hospitalist
DX: A41.9 Sepsis, unspecified organism (principal); J18.1 Lobar pneumonia, unspecified organism; J18.9 Pneumonia, unspecified organism; J44.0 Chronic obstructive pulmonary disease with (acute) lower respiratory infection; M35.3 Polymyalgia rheumatica; I10 Essential (primary) hypertension; E03.9 Hypothyroidism, unspecified; G47.30 Sleep apnea, unspecified; Z86.73 Personal history of transient ischemic attack (TIA), and cerebral infarction without residual deficits; F32.9 Major depressive disorder, single episode, unspecified; Z95.2 Presence of prosthetic heart valve; Z85.828 Personal history of other malignant neoplasm of skin; Z82.49 Family history of ischemic heart disease and other diseases of the circulatory system; Z83.6 Family history of other diseases of the respiratory system; Z80.9 Family history of malignant neoplasm, unspecified
CPT/HCPCS: 36415; 36600; 51703; 70450; 71045; 71046; 80048; 81001; 81003; 82803; 83605; 83880; 84443; 85025; 85379; 87040; 87086; 87275; 87276; 94761; 96365; 96366; 96372; 99285

== ENCOUNTER 2017-12-27 13:34 | Outpatient (CLI) | payer MEDICARE, OTHER ==
[2017-12-27] MEDS ORDERED: IOPAMIDOL-300 100 ML VIAL ONE (14:05)
[2017-12-27 14:08] LABS: CREATININE 1.1 mg/dL (0.6-1.2)
[2017-12-27] MEDS ORDERED: IOPAMIDOL-300 100 ML VIAL IVP ONE (14:39)
--- NOTE | 2017-12-27 17:43 | CT Report ---
CHEST CT WITH CONTRAST: 12/27/2017 HISTORY: Followup pneumonia. CONTRAST: 80 mL Isovue 300. TECHNIQUE: Axial CT scan images of the chest with multiplanar reconstructions. In accordance with CT protocol optimization, one or more of the following dose reduction techniques were utilized for this exam: Automated exposure control, adjustment of mA and/or KV based on patient size, or use of iterative reconstructive technique. COMPARISON: 03/26/2017 CT FINDINGS: There is evidence of prior right neck dissection with absent right sternocleidomastoid muscle. Biapical fibrotic change, likely prior radiation therapy. No definite evidence of neck adenopathy. No hilar or mediastinal adenopathy. The patient is status post sternotomy and prosthetic aortic valve. There is no pleural fluid or pneumothorax. There is persistent faint increased density predominantly in the superior segment of the right lower lobe which may represent residual infiltrate, atelectasis or fibrosis. No underlying mass lesion is seen. No pulmonary nodules. Multilevel degenerative change in the spine with cervical thoracolumbar junction dextroscoliosis. IMPRESSION: FAINT RESIDUAL INCREASED DENSITY LIKELY REPRESENTS A SMALL AMOUNT OF RESIDUAL INFILTRATE. APICAL PLEURAL AND PARENCHYMAL CHANGES, LIKELY PRIOR RADIATION THERAPY. STATUS POST RIGHT NECK DISSECTION, STERNOTOMY, AND AORTIC VALVE REPLACEMENT. NO SUSPICIOUS FINDINGS NOTED. TD: 12/27/2017 17:42 JUNI
== END 2017-12-27 13:35 | disposition home or self-care (01) ==
LOC: DI 13:34
PROVIDERS: ATTEND Internal Medicine
DX: J18.9 Pneumonia, unspecified organism (principal); Z95.2 Presence of prosthetic heart valve
CPT/HCPCS: 36415; 71260; 82565; Q9967

== ENCOUNTER 2018-02-03 16:37 | Outpatient (CLI) | payer MEDICARE, OTHER | END 2018-02-03 16:38 | disposition home or self-care (01) | LOC: LAB.R 16:37 | PROVIDERS: ATTEND Internal Medicine | DX: M35.3 Polymyalgia rheumatica (principal) | CPT/HCPCS: 36415; 85651; 86140 ==

== ENCOUNTER 2018-03-31 15:22 | Outpatient (CLI) | payer MEDICARE, OTHER | END 2018-03-31 15:23 | disposition home or self-care (01) | LOC: LAB.R 15:22 | PROVIDERS: ATTEND Internal Medicine | DX: M35.3 Polymyalgia rheumatica (principal) | CPT/HCPCS: 85651; 86140 ==

== ENCOUNTER 2018-06-09 08:00 | Outpatient (CLI) | payer MEDICARE, OTHER | END 2018-06-09 08:01 | disposition home or self-care (01) | LOC: LAB.R 08:00 | PROVIDERS: ATTEND Internal Medicine | DX: M35.3 Polymyalgia rheumatica (principal) | CPT/HCPCS: 85651; 86140 ==

== ENCOUNTER 2018-09-28 16:08 | Outpatient (CLI) | payer MEDICARE, OTHER ==
[2018-09-28 16:27] LABS: BASOPHILS % (AUTO) 0.5 %; EOSINOPHILS % (AUTO) 0.1 %; HGB - HEMOGLOBIN 14.1 g/dL (14.0-18.0); LYMPHOCYTES # (AUTO) 0.6 10^3/uL (1.5-3.5); LYMPHOCYTES % (AUTO) 6.8 %; MEAN CORPUSCULAR HEMOGLOBIN 31.5 pg (27.0-31.0); MEAN CORPUSCULAR HGB CONC 31.8 g/dL (32.0-36.0); MEAN CORPUSCULAR VOLUME 99.1 fL (80.0-94.0); MEAN PLATELET VOLUME 9.9 fL (7.4-11.4); MONOCYTES # (AUTO) 0.6 10^3/uL (0.0-1.0); MONOCYTES % (AUTO) 7.3 %; NEUTROPHILS # (AUTO) 7.5 10^3/uL (1.5-6.6); NEUTROPHILS % (AUTO) 85.3 %; PLT - PLATELET COUNT 206 10^3/uL (130-450); RED BLOOD COUNT 4.47 10^6/uL (4.70-6.10); RED CELL DISTRIBUTION WIDTH 14.5 % (12.0-15.0); WHITE BLOOD COUNT 8.8 x10^3/uL (4.8-10.8)
== END 2018-09-28 16:09 | disposition home or self-care (01) ==
LOC: LAB 16:08
PROVIDERS: ATTEND Internal Medicine
DX: M79.604 Pain in right leg (principal)
CPT/HCPCS: 36415; 85025; 85379

== ENCOUNTER 2018-09-29 15:37 | Outpatient (CLI) | payer MEDICARE, OTHER ==
--- NOTE | 2018-09-30 10:39 | Ultrasound Report ---
Reason: LEG PAIN LEFT Procedure Date: 09/29/2018 Accession Number: [id number] / [id number] Procedure: US - Duplex Ext Veins Left CPT Code: FULL RESULT: EXAM: LEFT LOWER EXTREMITY VENOUS ULTRASOUND EXAM DATE: 09/29/2018 05:30 PM. CLINICAL HISTORY: leg pain left. COMPARISON: None. TECHNIQUE: Real-time sonographic vascular imaging was performed by the willower through the lower extremity utilizing both color-flow and Doppler spectral analysis. Multiple inside technical sales representative static images were saved for review. FINDINGS: Common Femoral Vein (CFV): Normal. CFV-GSV Junction: Normal. Profunda Femoral Vein (PFV): Normal. Femoral Vein (FV) Prox: Normal. Femoral Vein (FV) Mid: Normal. Femoral Vein (FV) Dist: Normal. Popliteal Vein: Normal. Posterior Tibial Veins: Normal. Peroneal Veins: Normal. Contralateral Side CFV: Normal. Other: Calf vein visualization is limited. IMPRESSION: No evidence for deep venous thrombosis. Limited calf vein visualization. [facility]
== END 2018-09-29 15:38 | disposition home or self-care (01) ==
LOC: DI 15:37
PROVIDERS: ATTEND Internal Medicine
DX: M79.604 Pain in right leg (principal)

== ENCOUNTER 2018-10-14 11:01 | Outpatient (CLI) | payer MEDICARE, OTHER ==
--- NOTE | 2018-10-14 12:06 | DEXA Report ---
Reason: POLYMYALGIA RHEUMATICA,MEDICATION, LONGTERM USE Procedure Date: 10/14/2018 Accession Number: [id number] / [id number] Procedure: DEX - Dexa Spine and/or Hip CPT Code: FULL RESULT: EXAM: Dexa Spine and/or Hip DATE: 10/14/2018 11:28 AM CLINICAL HISTORY: POLYMYALGIA RHEUMATICA,MEDICATION, LONGTERM STEROID USE TECHNIQUE: Dual energy x-ray absorptiometry (DXA) was performed on a [employer] System. Regions measured are the AP Spine, femoral neck, and if needed forearm. COMPARISON: None. In accordance with the International Society for Clinical Densitometry (ISCD) guidelines, data from previous exams may be reanalyzed using current recommendations and techniques. This is done to allow a more accurate basis for comparison with the current study. FINDINGS: The data for the lumbar spine is as follows: BMD (g/cm/cm) T-SCORE Z-SCORE REGION L1 0.822 -2.8 -1.8 L2 1.147 -0.8 0.3 L3 1.166 -0.6 0.4 L4 1.180 -0.5 0.6 TOTAL 1.085 -1.1 -0.1 NOTE: All evaluable vertebrae are used for classification The data for the hip is as follows: BMD (g/cm/cm) T-SCORE Z-SCORE REGION Neck 0.716 -2.7 -0.9 TOTAL 0.801 -2.1 -0.6 NOTE: The femoral neck or total proximal femur, whichever is lowest, is used for classification. IMPRESSION: THE WHO CLASSIFICATION BASED ON THE INTERNATIONAL REFERENCE STANDARD IS OSTEOPOROSIS. THE FRACTURE RISK IS HIGH. RECOMMENDATION: Patients with diagnosis of osteoporosis or osteopenia should have regular bone mineral density assessment. For those eligible for Medicare, routine testing is allowed once every 2 years. Testing frequency can be increased for patients who have rapidly progressing disease or for those who are receiving medical therapy to restore bone mass. COMMENT: World Health Organization (WHO) definitions for osteoporosis and osteopenia: NORMAL BMD: T-score at -1.0 or higher, fracture risk is low OSTEOPENIA BMD: T-score between -1.0 and -2.5, fracture risk is increased. OSTEOPOROSIS BMD: T-score at -2.5 or lower, fracture risk is high. National Osteoporosis Foundation recommends: 1. Obtain adequate dietary calcium (at least 1200 mg per day) and vitamin D (400-800 international units per day). 2. Participate, as appropriate, in regular weightbearing and muscle-strengthening exercise. 3. Avoid tobacco use and reduce alcohol and caffeine intake. 4. For more detailed information see the website at www.NOF.org.
== END 2018-10-14 11:02 | disposition home or self-care (01) ==
LOC: DI 11:01
PROVIDERS: ATTEND Internal Medicine
DX: M81.0 Age-related osteoporosis without current pathological fracture (principal); Z79.899 Other long term (current) drug therapy; Z79.52 Long term (current) use of systemic steroids
CPT/HCPCS: 77080

== ENCOUNTER 2018-10-18 07:34 | Outpatient (CLI) | payer MEDICARE, OTHER ==
[2018-10-18 10:59] LABS: BASOPHILS % (AUTO) 0.6 %; EOSINOPHILS # (AUTO) 0.1 10^3/uL (0.0-0.7); EOSINOPHILS % (AUTO) 1.9 %; HGB - HEMOGLOBIN 14.4 g/dL (14.0-18.0); LYMPHOCYTES % (AUTO) 16.1 %; MEAN CORPUSCULAR HEMOGLOBIN 31.8 pg (27.0-31.0); MEAN CORPUSCULAR HGB CONC 32.9 g/dL (32.0-36.0); MEAN CORPUSCULAR VOLUME 96.5 fL (80.0-94.0); MEAN PLATELET VOLUME 10.5 fL (7.4-11.4); MONOCYTES # (AUTO) 0.9 10^3/uL (0.0-1.0); MONOCYTES % (AUTO) 14.1 %; NEUTROPHILS # (AUTO) 4.2 10^3/uL (1.5-6.6); NEUTROPHILS % (AUTO) 67.3 %; PLT - PLATELET COUNT 232 10^3/uL (130-450); RED BLOOD COUNT 4.52 10^6/uL (4.70-6.10); RED CELL DISTRIBUTION WIDTH 14.3 % (12.0-15.0); WHITE BLOOD COUNT 6.2 x10^3/uL (4.8-10.8)
[2018-10-18 11:24] LABS: ALBUMIN 3.8 g/dL (3.2-5.5); ALBUMIN/GLOBULIN RATIO 1.5 (1.0-2.2); ALKALINE PHOSPHATASE 49 IU/L (42-121); ALT ALANINE AMINOTRANSFERASE 16 IU/L (10-60); AST ASPARTATE AMINOTRANSFERASE 21 IU/L (10-42); BUN - BLOOD UREA NITROGEN 22 mg/dL (6-20); CALCIUM 9.2 mg/dL (8.5-10.3); CARBON DIOXIDE - CO2 35 mmol/L (21-32); CHLORIDE 99 mmol/L (101-111); CHOL/HDL RATIO 2.3 (<5.0); CHOLESTEROL 202 mg/dL; CREATININE 1.2 mg/dL (0.6-1.2); GFR - MDRD 58 (>89); GLUCOSE 90 mg/dL (70-100); HDL CHOLESTEROL 88 mg/dL; LDL CHOLESTEROL,CALCULATED 101 mg/dL; LDL/HDL RATIO 1.1 (<3.6); SODIUM 143 mmol/L (135-145); TOTAL PROTEIN 6.4 g/dL (6.7-8.2); VLDL CHOLESTEROL 13 mg/dL
== END 2018-10-18 07:35 | disposition home or self-care (01) ==
LOC: LAB.F 07:34
PROVIDERS: ATTEND Internal Medicine
DX: E03.9 Hypothyroidism, unspecified (principal); Z79.899 Other long term (current) drug therapy; E78.5 Hyperlipidemia, unspecified; M35.3 Polymyalgia rheumatica
CPT/HCPCS: 36415; 80053; 80061; 83721; 84443; 85025

== ENCOUNTER 2018-11-15 15:39 | Outpatient (CLI) | payer MEDICARE, OTHER ==
--- NOTE | 2018-11-16 11:07 | Ultrasound Report ---
Reason: LLQ ABDOMINAL SWELLING.MASS,OR LUMP Procedure Date: 11/15/2018 Accession Number: [id number] / [id number] Procedure: US - Abdomen Limited CPT Code: FULL RESULT: EXAM: ABDOMEN ULTRASOUND LIMITED EXAM DATE: 11/15/2018 04:26 PM. CLINICAL HISTORY: Left lower quadrant abdominal swelling. Mass or lump. COMPARISON: None. TECHNIQUE: Real-time scanning was performed with static images obtained. FINDINGS: Within the left inguinal region is a nonreducible mass with surrounding fluid which appears to demonstrate a mucosal signature suggestive of bowel which does not reduce during the examination. IMPRESSION: Inguinal hernia. [facility]
== END 2018-11-15 15:40 | disposition home or self-care (01) ==
LOC: DI 15:39
PROVIDERS: ATTEND Internal Medicine
DX: K40.90 Unilateral inguinal hernia, without obstruction or gangrene, not specified as recurrent (principal)
CPT/HCPCS: 76705

== ENCOUNTER 2018-12-17 12:23 | Emergency (ER) | payer MEDICARE, OTHER ==
--- NOTE | 2018-12-17 12:43 | ED Physician Documentation ---
PD HPI DYSPNEA - Stated complaint Stated Complaint: COUGHING UP BLOOD - Chief complaint Chief Complaint: Resp - History obtained from History obtained from: Patient, Family - History of Present Illness Timing - onset: Yesterday (He started coughing yesterday, it quickly became pretty bloody. He denies shortness of breath or chest pain with it. He is on both Plavix and aspirin for history of vertebral artery blockage. No fevers calf swelling or out of the ordinary Leg pain, he does have chronic pain from polymyalgia rheumatica and is currently tapering his steroids.) Associated symptoms: Other (The blood is mixed with sputum which is also dark.) Review of Systems Constitutional: denies: Fever, Chills Cardiac: denies: Chest pain / pressure, Palpitations Respiratory: reports: Cough, Hemoptysis. denies: Dyspnea, Wheezing GI: denies: Abdominal Pain PD PAST MEDICAL HISTORY - Past Medical History Cardiovascular: Hypertension Respiratory: COPD, Shortness of breath, Sleep apnea Endocrine/Autoimmune: HyPOthyroidism GI: Ulcers : None Psych: Depression Musculoskeletal: Fatigue, Chronic back pain Derm: None, Herpes zoster - Past Surgical History Past Surgical History: Yes General: Appendectomy Cardiovascular: Valve replacement HEENT: Tonsil/Adenoidectomy Derm: Skin cancer surgery - Present Medications Home Medications: Ambulatory Orders Medication Instructions Recorded Confirmed Celecoxib 200 mg PO DAILY 12/18/16 11/16/17 Cholecalciferol (Vitamin D3) 1,000 unit PO DAILY 12/18/16 11/16/17 [Vitamin D3] Clopidogrel Bisulfate [Plavix] 75 tab PO DAILY 12/18/16 11/16/17 Levothyroxine Sodium [Levo-T] 175 mcg PO DAILY 12/18/16 11/16/17 Losartan [Cozaar] 12.5 mg PO DAILY 12/18/16 11/16/17 PARoxetine [Paxil] 10 mg PO DAILY 12/18/16 11/16/17 diazePAM [Valium] 2.5 mg PO DAILY PRN 12/18/16 11/16/17 predniSONE [Prednisone] 5 mg PO QPM 12/18/16 11/16/17 Azithromycin 1 tab PO DAILY #4 tablet 12/17/18 - Allergies Allergies/Adverse Reactions: Allergies Allergy/AdvReac Type Severity Reaction Status Date / Time No Known Drug Allergies Allergy Verified 11/13/17 05:01 - Social History Does the pt smoke?: No Smoking Status: Never smoker Does the pt drink ETOH?: Yes Does the pt have substance abuse?: No - Immunizations Immunizations are current?: Yes - POLST Patient has POLST: No POLST Status: Full Code PD ED PE NORMAL - Vitals Vital signs reviewed: Yes - General General: Alert and oriented X 3, No acute distress, Other - Cardiac Cardiac: RRR, No murmur - Respiratory Respiratory: No respiratory distress, Other (Diminished and crackly especially at the left base) - Back Back: No CVA TTP, No spinal TTP - Derm Derm: Normal color, Warm and dry - Extremities Extremities: No edema, No calf tenderness / cord - Neuro Neuro: Alert and oriented X 3, Normal speech Results - Vitals Vitals: Vital Signs - 24 hr 12/17/18 12/17/18 12:37 12:43 Temperature 36.5 C Heart Rate 65 Respiratory 18 Rate Blood Pressure 166/106 H O2 Saturation 97 Oxygen O2 Source Room air - Labs Labs: Laboratory Tests 12/17/18 12/17/18 12/17/18 12:49 12:49 12:49 WBC 7.8 RBC 4.62 L Hgb 14.4 Hct 44.5 MCV 96.2 H MCH 31.3 H MCHC 32.5 RDW 14.8 Plt Count 189 MPV 10.0 Neut # (Auto) 6.5 Lymph # (Auto) 0.5 L [place] # (Auto) 0.6 Eos # (Auto) 0.0 Baso # (Auto) 0.1 Absolute Nucleated RBC 0.01 Nucleated RBC % 0.1 PT 11.4 INR 1.0 Sodium 137 Potassium 4.4 Chloride 96 L Carbon Dioxide 32 Anion Gap 9.0 BUN 22 H Creatinine 1.1 Estimated GFR (MDRD) 64 L Glucose 82 Calcium 9.5 Total Bilirubin 0.9 AST 30 ALT 18 Alkaline Phosphatase 64 Total Protein 7.3 Albumin 4.5 Globulin 2.8 Albumin/Globulin Ratio 1.6 Lipase 42 PD MEDICAL DECISION MAKING - ED course ED course: This is an 83-year-old gentleman who presents with bronchitis-like symptoms associated with mild hemoptysis, clear chest x-ray and unremarkable labs. A sputum sample was checked. We will start Zithromax. He is advised to return if worse or in 2 days if not improving. Departure - Departure Disposition: 01 Home, Self Care Clinical Impression: Bronchitis Condition: Good Record reviewed to determine appropriate education?: Yes Instructions: ED Upper Resp Infec Abx Tx Prescriptions: Azithromycin 1 tab PO DAILY #4 tablet Comments: Return in 48 hours if not better, sooner if worse or if new symptoms develop. Your blood pressure was elevated today on check into the emergency department. This does not mean that you have hypertension, it is a common phenomenon to come to the emergency department and have elevated blood pressure. I recommend that you see your primary care physician within the week to have it rechecked when you are feeling better.
[2018-12-17 12:52] LABS: BASOPHILS # (AUTO) 0.1 10^3/uL (0.0-0.1); BASOPHILS % (AUTO) 1.7 %; EOSINOPHILS % (AUTO) 0.6 %; HGB - HEMOGLOBIN 14.4 g/dL (14.0-18.0); LYMPHOCYTES # (AUTO) 0.5 10^3/uL (1.5-3.5); LYMPHOCYTES % (AUTO) 6.4 %; MEAN CORPUSCULAR HEMOGLOBIN 31.3 pg (27.0-31.0); MEAN CORPUSCULAR HGB CONC 32.5 g/dL (32.0-36.0); MEAN CORPUSCULAR VOLUME 96.2 fL (80.0-94.0); MONOCYTES # (AUTO) 0.6 10^3/uL (0.0-1.0); MONOCYTES % (AUTO) 7.7 %; NEUTROPHILS # (AUTO) 6.5 10^3/uL (1.5-6.6); NEUTROPHILS % (AUTO) 83.6 %; PLT - PLATELET COUNT 189 10^3/uL (130-450); RED BLOOD COUNT 4.62 10^6/uL (4.70-6.10); RED CELL DISTRIBUTION WIDTH 14.8 % (12.0-15.0); WHITE BLOOD COUNT 7.8 x10^3/uL (4.8-10.8)
[2018-12-17 12:58] LABS: PT - PROTHROMBIN TIME 11.4 secs (9.9-12.6)
[2018-12-17 13:06] LABS: ALBUMIN 4.5 g/dL (3.2-5.5); ALBUMIN/GLOBULIN RATIO 1.6 (1.0-2.2); BILIRUBIN,TOTAL 0.9 mg/dL (0.2-1.0); CALCIUM 9.5 mg/dL (8.5-10.3); CREATININE 1.1 mg/dL (0.6-1.2); TOTAL PROTEIN 7.3 g/dL (6.7-8.2)
--- NOTE | 2018-12-17 13:37 | XRAY Report ---
Reason: cough, hemoptysis Procedure Date: 12/17/2018 Accession Number: [id number] / [id number] Procedure: XR - Chest 2 View X-Ray CPT Code: 86166 FULL RESULT: EXAM: CHEST RADIOGRAPHY EXAM DATE: 12/17/2018 12:56 PM. CLINICAL HISTORY: Cough, hemoptysis. COMPARISON: CHEST 2 VIEW 11/16/2017 6:14 AM CHEST W/ 03/26/2017 3:48 PM. TECHNIQUE: 2 views. FINDINGS: Lungs/Pleura: Persistent mild elevation of the right hemidiaphragm. No focal lung consolidation. No pleural effusion. No pneumothorax. Minimal atelectasis/scarring at the bases. Small amount of pleural-based calcification appears to be present at the left apex, which appears unchanged. Small amount of scarring also noted at the apices. Mediastinum: Cardiac silhouette size appears unremarkable. Prior sternotomy changes. Atherosclerotic vascular calcification. Other: None. IMPRESSION: 1. Persistent mild elevation of the right hemidiaphragm. No new focal lung consolidation or pleural effusions. 2. Small amount of bibasilar and biapical chronic atelectasis/scarring again noted. Small amount of pleural-based calcification also again noted at the left apex. RADIA
[2018-12-17] MEDS ORDERED: AZITHROMYCIN 250 MG TABLET PO STA (13:48)
[2018-12-17 13:57] VITALS: BP 179/91
== END 2018-12-17 13:56 | disposition home or self-care (01) ==
LOC: ED 12:23
DX: J40 Bronchitis, not specified as acute or chronic (principal); I65.09 Occlusion and stenosis of unspecified vertebral artery; I10 Essential (primary) hypertension; R04.2 Hemoptysis; Z79.02 Long term (current) use of antithrombotics/antiplatelets; Z79.82 Long term (current) use of aspirin
CPT/HCPCS: 36415; 71046; 80053; 83690; 85025; 85610; 87070; 87205; 99283; A9270

== ENCOUNTER 2018-12-23 13:38 | Outpatient (CLI) | payer MEDICARE, OTHER ==
--- NOTE | 2018-12-23 15:15 | CT Report ---
Reason: ELEVATED HEMIDIAPHRAGM,HEMOPTYSIS Procedure Date: 12/23/2018 Accession Number: [id number] / [id number] Procedure: CT - CHEST WO CPT Code: FULL RESULT: EXAM: CT CHEST EXAM DATE: 12/23/2018 01:51 PM. CLINICAL HISTORY: Elevated hemidiaphragm, hemoptysis. COMPARISONS: CHEST W/ 12/27/2017 2:31 PM CHEST 2 VIEW 12/17/2018 12:46 PM. TECHNIQUE: Routine helical CT imaging was performed through the chest. IV contrast: None. Reconstructions: Coronal and sagittal. In accordance with CT protocol optimization, one or more of the following dose reduction techniques were utilized for this exam: automated exposure control, adjustment of mA and/or KV based on patient size, or use of iterative reconstructive technique. 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 There is essentially unchanged mass-like biapical scarring and consolidation with pleural calcification. A small amount of subsegmental scarring or atelectasis is also seen at the posterior right lung base. There is otherwise no suspicious mass or consolidation. No pleural effusion or pneumothorax. Mediastinum: The aorta is calcified and prominent without aleyda aneurysm. Prosthetic aortic valve is noted. Three-vessel coronary calcifications are noted. There is no pericardial effusion. There is no hilar or mediastinal lymphadenopathy. Bones: There is marked thoracolumbar dextroscoliosis, stable. No aggressive osseous lesions are seen. Visualized Abdomen: Unremarkable. Other: None. 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 Similar biapical scarring and consolidation with pleural calcifications. RADIA
== END 2018-12-23 13:39 | disposition home or self-care (01) ==
LOC: DI 13:38
PROVIDERS: ATTEND Family Medicine
DX: R04.1 Hemorrhage from throat (principal); J94.8 Other specified pleural conditions; Q79.1 Other congenital malformations of diaphragm
CPT/HCPCS: 71250

== ENCOUNTER 2019-01-12 12:24 | Emergency (ER) | payer MEDICARE, OTHER ==
[2019-01-12 12:37] VITALS: BP 209/88
== END 2019-01-12 13:40 | disposition left against medical advice (07) ==
LOC: ED 12:24
DX: Z53.21 Procedure and treatment not carried out due to patient leaving prior to being seen by health care provider (principal)

== ENCOUNTER 2019-01-15 13:06 | Emergency (ER) | payer MEDICARE, OTHER ==
[2019-01-15 13:14] VITALS: BP 179/82
[2019-01-15] MEDS ORDERED: ALBUTEROL NEB 2.5 MG/3 ML INH STA (14:07)
--- NOTE | 2019-01-15 14:18 | XRAY Report ---
Reason: cough Procedure Date: 01/15/2019 Accession Number: [id number] / [id number] Procedure: XR - Chest 2 View X-Ray CPT Code: 76714 FULL RESULT: EXAM: CHEST RADIOGRAPHY EXAM DATE: 01/15/2019 01:46 PM. CLINICAL HISTORY: Cough. COMPARISON: CHEST 2 VIEW 12/17/2018 12:46 PM. TECHNIQUE: 2 views. FINDINGS: Lungs/Pleura: No focal opacities evident. No pleural effusion. No pneumothorax. Normal volumes. Elevated right right hemidiaphragm redemonstrated. Mediastinum: Median sternotomy and valve replacement redemonstrated. Other: None. IMPRESSION: No focal consolidation RADIA
--- NOTE | 2019-01-15 14:47 | ED Physician Documentation ---
PD HPI URI - Stated complaint Stated Complaint: COUGHING/CONGESTION - Chief complaint Chief Complaint: Resp - History obtained from History obtained from: Patient - History of Present Illness Timing - onset: How many weeks ago (several) Timing duration: Weeks Timing details: Gradual onset Pain level max: 0 Pain level now: 0 Associated symptoms: Fever (Intermittent, subjective), Productive cough (Green sputum), Hemoptysis (Had hemoptysis originally, none now), Dyspnea (Occasionally feels short of breath). No: Chills Contributing factors: No: Travel, Immunocompromised, COPD / asthma Improves by: Rest Worsened by: Activity, Breathing Recently seen: Emergency Dept (Had hemoptysis several weeks ago when this started, in no acute findings on chest CT at that time) Review of Systems GI: denies: Vomiting Skin: denies: Rash PD PAST MEDICAL HISTORY - Past Medical History Past Medical History: Yes Cardiovascular: Hypertension Respiratory: COPD, Shortness of breath, Sleep apnea Endocrine/Autoimmune: HyPOthyroidism GI: Ulcers : None Psych: Depression Musculoskeletal: Fatigue, Chronic back pain Derm: None, Herpes zoster - Past Surgical History Past Surgical History: Yes General: Appendectomy Cardiovascular: Valve replacement HEENT: Tonsil/Adenoidectomy Derm: Skin cancer surgery - Present Medications Home Medications: Ambulatory Orders Medication Instructions Recorded Confirmed Celecoxib 200 mg PO DAILY PRN 12/18/16 01/15/19 Cholecalciferol (Vitamin D3) 1,000 unit PO DAILY 12/18/16 01/15/19 [Vitamin D3] Clopidogrel Bisulfate [Plavix] 75 tab PO DAILY 12/18/16 01/15/19 Levothyroxine Sodium [Levo-T] 175 mcg PO DAILY 12/18/16 01/15/19 Losartan [Cozaar] 12.5 mg PO DAILY 12/18/16 01/15/19 PARoxetine [Paxil] 10 mg PO DAILY 12/18/16 01/15/19 diazePAM [Valium] 2.5 mg PO DAILY PRN 12/18/16 01/15/19 predniSONE [Prednisone] 6 mg PO QPM 12/18/16 01/15/19 Albuterol Sulf [Ventolin Hfa 1 - 2 puffs INH Q4HR PRN #1 inhaler 01/15/19 Inhaler] Doxycycline Hyclate 100 mg PO BID #20 capsule 01/15/19 - Allergies Allergies/Adverse Reactions: Allergies Allergy/AdvReac Type Severity Reaction Status Date / Time No Known Drug Allergies Allergy Verified 01/15/19 13:14 - Social History Does the pt smoke?: No Smoking Status: Never smoker Does the pt drink ETOH?: Yes Does the pt have substance abuse?: No - Immunizations Immunizations are current?: Yes - POLST Patient has POLST: No POLST Status: Full Code PD ED PE NORMAL - Vitals Vital signs reviewed: Yes - General General: Alert and oriented X 3, No acute distress - HEENT HEENT: Ears normal, Moist mucous membranes, Pharynx benign - Neck Neck: Supple, no meningeal sign - Cardiac Cardiac: RRR, Strong equal pulses - Respiratory Respiratory: No respiratory distress, Other (Diminished breath sounds bibasilar, occasional wheeze) - Abdomen Abdomen: Soft, Non tender, Non distended - Derm Derm: Warm and dry - Extremities Extremities: No edema - Neuro Neuro: Alert and oriented X 3 - Psych Psych: Normal mood, Normal affect Results - Vitals Vitals: Vital Signs - 24 hr 01/15/19 01/15/19 13:12 14:27 Temperature 36.8 C Heart Rate 72 74 Respiratory 20 20 Rate Blood Pressure 179/82 H O2 Saturation 96 Oxygen O2 Source Room air - Rads (name of study) Chest x-ray Radiology: Prelim report reviewed, EMP read contemporaneously, See rad report (No acute disease) PD MEDICAL DECISION MAKING - ED course Complexity details: reviewed results, re-evaluated patient, considered differential, d/w patient, d/w family ED course: 83-year-old male presents to the emergency department with a cough. Negative chest x-ray. Did have him. Had improved breath sounds after albuterol treatment. He is well-appearing, nontoxic. Afebrile. As the cough has been ongoing for approximately 6 weeks with green sputum despite the negative x-ray, will trial on antibiotics. Also placed on albuterol for home. Patient counseled regarding signs and symptoms for which I believe and urgent re- evaluation would be necessary. Patient with good understanding of and agreement to plan and is comfortable going home at this time This document was made in part using voice recognition software. While efforts are made to proofread this document, sound alike and grammatical errors may occur. Departure - Departure Disposition: 01 Home, Self Care Clinical Impression: Atypical pneumonia Condition: Good Instructions: ED Pneumonia Adult Follow-Up: Williams Courtney MD [Primary Care Provider] - Within 1 week Prescriptions: Albuterol Sulf [Ventolin Hfa Inhaler] 1 - 2 puffs INH Q4HR PRN #1 inhaler PRN Reason: Shortness Of Air/Wheezing Doxycycline Hyclate 100 mg PO BID #20 capsule Comments: Return if you worsen. Take all antibiotics until gone. Follow-up with your doctor for further care. Discharge Date/Time: 01/15/19 14:54
== END 2019-01-15 14:54 | disposition home or self-care (01) ==
LOC: ED 13:06
DX: J18.9 Pneumonia, unspecified organism (principal); J44.9 Chronic obstructive pulmonary disease, unspecified; I10 Essential (primary) hypertension; E03.9 Hypothyroidism, unspecified; Z95.2 Presence of prosthetic heart valve
CPT/HCPCS: 71046; 94640; 99283; 99284

== ENCOUNTER 2019-02-08 13:26 | Emergency (ER) | payer MEDICARE, OTHER ==
[2019-02-08] MEDS ORDERED: CHERRY SYRUP 10 ML UDC PO ONE (15:25)
[2019-02-08] MEDS ORDERED: KETOROLAC 60 MG/2 ML VIAL IM STA (15:25)
[2019-02-08] MEDS ORDERED: DEXAMETHASONE 10 MG/ML VIAL PO STA (15:25)
--- NOTE | 2019-02-08 15:31 | ED Physician Documentation ---
PD HPI BACK PAIN - Stated complaint Stated Complaint: BACK/HIP PX - Chief complaint Chief Complaint: Ext Problem - History obtained from History obtained from: Patient - History of Present Illness Timing - onset: Chronic Timing - duration: Days (worse for past 10 days) Timing - details: Gradual onset Pain level max: 10 Pain level now: 10 Location: Lower, Left Quality: Pain, Spasm, Similar to prior episodes Associated symptoms: No: Fever, Weakness, Numbness, Incontinent of urine, Unable to urinate, Hematuria, Incontinent of stool Improves with: Rest Worsened by: Other (Walking) Contributing factors: No: Lifting, Twisting, Trauma, Anticoagulated, Cancer, IVDA, Out of meds Similar symptoms before: Diagnosis (Chronic back pain) Recently seen: Not recently seen - Additional information Additional information: No incontinence. No falls. No trauma. Review of Systems Constitutional: denies: Fever, Chills GI: denies: Vomiting : denies: Unable to Void, Incontinent Skin: denies: Rash Neurologic: denies: Focal weakness, Numbness, Headache PD PAST MEDICAL HISTORY - Past Medical History Cardiovascular: Hypertension Respiratory: COPD, Shortness of breath, Sleep apnea Endocrine/Autoimmune: HyPOthyroidism GI: Ulcers : None Psych: Depression Musculoskeletal: Fatigue, Chronic back pain Derm: None, Herpes zoster - Past Surgical History Past Surgical History: Yes General: Appendectomy Cardiovascular: Valve replacement HEENT: Tonsil/Adenoidectomy Derm: Skin cancer surgery - Present Medications Home Medications: Ambulatory Orders Medication Instructions Recorded Confirmed Celecoxib 200 mg PO DAILY PRN 12/18/16 01/15/19 Cholecalciferol (Vitamin D3) 1,000 unit PO DAILY 12/18/16 01/15/19 [Vitamin D3] Clopidogrel Bisulfate [Plavix] 75 tab PO DAILY 12/18/16 01/15/19 Levothyroxine Sodium [Levo-T] 175 mcg PO DAILY 12/18/16 01/15/19 Losartan [Cozaar] 12.5 mg PO DAILY 12/18/16 01/15/19 PARoxetine [Paxil] 10 mg PO DAILY 12/18/16 01/15/19 diazePAM [Valium] 2.5 mg PO DAILY PRN 12/18/16 01/15/19 predniSONE [Prednisone] 6 mg PO QPM 12/18/16 01/15/19 Albuterol Sulf [Ventolin Hfa 1 - 2 puffs INH Q4HR PRN #1 inhaler 01/15/19 Inhaler] Doxycycline Hyclate 100 mg PO BID #20 capsule 01/15/19 Cyclobenzaprine [Flexeril] 10 mg PO TID PRN #20 tablet 02/08/19 Oxycodone HCl/Acetaminophen 1 - 2 each PO Q6H PRN #14 tablet 02/08/19 [Percocet 5-325 mg Tablet] - Allergies Allergies/Adverse Reactions: Allergies Allergy/AdvReac Type Severity Reaction Status Date / Time No Known Drug Allergies Allergy Verified 02/08/19 13:35 - Social History Does the pt smoke?: No Smoking Status: Never smoker Does the pt drink ETOH?: Yes Does the pt have substance abuse?: No - Immunizations Immunizations are current?: Yes - POLST Patient has POLST: No POLST Status: Full Code PD ED PE NORMAL - Vitals Vital signs reviewed: Yes - General General: Alert and oriented X 3, No acute distress - HEENT HEENT: Moist mucous membranes - Neck Neck: Supple, no meningeal sign, No bony TTP - Cardiac Cardiac: RRR - Respiratory Respiratory: No respiratory distress, Clear bilaterally - Abdomen Abdomen: Soft, Non tender, Non distended - Back Back: No spinal TTP (No midline tenderness to palpation or percussion. There is tenderness to the left side of L4-L5. Reproduces his pain) - Derm Derm: Warm and dry - Extremities Extremities: Other (Normal bilateral lower extremity patellar and ankle jerk reflexes. Normal great toe extension bilaterally. no saddle anesthesia) - Neuro Neuro: No motor deficit, No sensory deficit Results - Vitals Vitals: Vital Signs - 24 hr 02/08/19 02/08/19 13:30 15:38 Temperature 36.6 C 36.5 C Heart Rate 76 72 Respiratory 17 20 Rate Blood Pressure 164/84 H 194/96 H O2 Saturation 98 95 Oxygen O2 Source Room air PD MEDICAL DECISION MAKING - ED course Complexity details: considered differential (No cauda equina, no spinal epidural abscess, no fracture, no aortic dissection or evidence of aneursym rupture), d/w patient ED course: 83-year-old male with left-sided low back pain radiating down the left leg. Consistent with sciatica. Given a small dose of dexamethasone and Toradol. He is driving. Will prescribe pain medication for home. We will have him follow- up with his doctor for further care. May benefit from steroid injections and/or an MRI. No evidence of cauda equina or epidural abscess at this time. Patient counseled regarding signs and symptoms for which I believe and urgent re- evaluation would be necessary. Patient with good understanding of and agreement to plan and is comfortable going home at this time This document was made in part using voice recognition software. While efforts are made to proofread this document, sound alike and grammatical errors may occur. Departure - Departure Disposition: 01 Home, Self Care Clinical Impression: Sciatica Qualifiers: Laterality: left Qualified Code(s): M54.32 - Sciatica, left side Condition: Good Instructions: ED Sciatica Follow-Up: Williams Courtney MD [Primary Care Provider] - Within 1 week Prescriptions: Cyclobenzaprine [Flexeril] 10 mg PO TID PRN #20 tablet PRN Reason: Spasms Oxycodone HCl/Acetaminophen [Percocet 5-325 mg Tablet] 1 - 2 each PO Q6H PRN #14 tablet PRN Reason: pain Comments: Follow-up with your doctor for further evaluation and care. Return if you worsen. Do not drink alcohol or drive while on narcotic pain medicine. Note that many narcotic pain relievers also contain tylenol/acetaminophen. Please ensure that your total dose of acetaminophen from all sources does not exceed 3 grams (3000mg) per day. You may constipated on this medication, take a stool softener such as "Colace" twice a day while you are on it. Also recommend a [id number] laxative such as senna or MiraLAX any day that you do not have a bowel movement. If you received narcotic pain medication in the emergency department, do not drive or operate machinery for the next 24 hours. Discharge Date/Time: 02/08/19 15:51
[2019-02-08 15:38] VITALS: BP 194/96
== END 2019-02-08 15:51 | disposition home or self-care (01) ==
LOC: ED 13:26
DX: G89.29 Other chronic pain (principal); M54.32 Sciatica, left side; I10 Essential (primary) hypertension
CPT/HCPCS: 96372; 99283

== ENCOUNTER 2019-02-09 15:40 | Outpatient (CLI) | payer MEDICARE, OTHER ==
--- NOTE | 2019-02-10 08:57 | XRAY Report ---
Reason: SCOLIOSIS,THORACIC SPINE,LOW BACK PAIN Procedure Date: 02/09/2019 Accession Number: [id number] / [id number] Procedure: XR - Thoracic Spine 2 View CPT Code: FULL RESULT: EXAM: THORACIC SPINE RADIOGRAPHY EXAM DATE: 02/09/2019 04:51 PM. CLINICAL HISTORY: Scoliosis; chronic thoracic spine pain. COMPARISON: Chest radiography performed on 01/15/2019. TECHNIQUE: 2 views. FINDINGS: Alignment: Normal thoracic kyphosis. No vertebral body subluxation. Thoracic levoscoliosis between T4 and T12 measuring 11 degrees. Bones: Decreased bone mineralization. No fracture. No focal bone lesion. Pedicles are intact. No evidence for congenital vertebral anomaly. Disks: Normal. Disk heights are maintained. Soft Tissues: Postsurgical changes involving the aortic valve, sternum and mediastinum. Postsurgical changes in the right neck soft tissues. Paraspinal soft tissues are otherwise unremarkable. IMPRESSION: 1. Decreased bone mineralization. 2. Thoracic levoscoliosis. 3. No acute findings. 4. Other stable chronic postsurgical changes. RADIA
--- NOTE | 2019-02-10 09:09 | XRAY Report ---
Reason: SCOLIOSIS,THORACIC SPINE,LOW BACK PAIN Procedure Date: 02/09/2019 Accession Number: [id number] / [id number] Procedure: XR - Cervical Spine 2 View CPT Code: FULL RESULT: EXAM: CERVICAL SPINE RADIOGRAPHY EXAM DATE: 02/09/2019 04:51 PM. CLINICAL HISTORY: Chronic neck pain. COMPARISONS: MODIFIED SWALLOW 11/17/2016 1:54 PM. TECHNIQUE: 3 views. FINDINGS: Alignment: Normal cervical lordosis. 2.3 mm anterolisthesis of C5 with respect to C6 and 2.5 mm retrolisthesis of C6 with respect to C7. No other vertebral body subluxation. Mild cervical dextrocurvature. Bones: The cervical vertebral bodies and posterior elements are well visualized from the skull base through C7-T1. Decreased bone mineralization. No fracture. No focal bone lesion. Disks: Preservation of individual disk space is at C2-C3, C3-C4 and C4-C5. Mild disk space narrowing at C5-C6 with marginal osteophytes. Loss of the normal intervertebral disk space heights at C5-C6 and C6-C7. Facets: Left facet arthrosis at C3-C4, C4-C5 and C5-C6 with bilateral facet arthrosis at C6-C7 and C7-T1. Soft Tissues: Postsurgical changes in the anterior neck soft tissues and sternum. Prevertebral soft tissues are otherwise unremarkable. IMPRESSION: 1. Decreased bone mineralization. 2. Vertebral body subluxation at C5-C6 and C6-C7 secondary to degenerative disk disease and facet arthrosis. 3. Multilevel degenerative disk disease and facet arthrosis, detailed above. 4. Postsurgical changes in the sternum and neck soft tissues. RADIA
--- NOTE | 2019-02-10 10:53 | XRAY Report ---
Reason: SCOLIOSIS,THORACIC SPINE,LOW BACK PAIN Procedure Date: 02/09/2019 Accession Number: [id number] / [id number] Procedure: XR - Lumbar Spine 2 View CPT Code: FULL RESULT: EXAM: LUMBOSACRAL SPINE RADIOGRAPHY EXAM DATE: 02/09/2019 04:51 PM. CLINICAL HISTORY: Chronic low back pain. COMPARISONS: CT LUMBAR SPINE W/O 09/26/2016 2:00 PM. TECHNIQUE: 3 views. FINDINGS: Alignment: Normal lumbar lordosis. No vertebral body subluxation. Rotatory thoracolumbar dextrocurvature between T10 and L3 measuring 20 degrees and levocurvature between L3 and L5 measuring 16 degrees. Bones: Five [id number]-rzb-[id number] lumbar vertebral bodies are present. Decreased bone mineralization. No fracture. No focal bone lesion. Pedicles are intact. Disks: Intervertebral disk space narrowing throughout the lumbar spine, sparing L3-L4. Endplate sclerosis and marginal osteophyte formation is present, compatible with degenerative disk disease. Facets: Bilateral facet arthrosis throughout the lumbar spine. Sacroiliac Joints: Unremarkable. Soft Tissues: Paraspinal and prevertebral soft tissues are unremarkable. IMPRESSION: 1. S-shaped thoracolumbar scoliosis. 2. Decreased bone mineralization. 3. No acute fracture or subluxation. 4. Multilevel degenerative disk disease and facet arthrosis throughout the lumbar spine. RADIA
== END 2019-02-09 15:41 | disposition home or self-care (01) ==
LOC: DI 15:40
PROVIDERS: ATTEND Nurse Practitioner
DX: M50.322 Other cervical disc degeneration at C5-C6 level (principal); M47.9 Spondylosis, unspecified; M41.84 Other forms of scoliosis, thoracic region; M51.36 Other intervertebral disc degeneration, lumbar region; M41.85 Other forms of scoliosis, thoracolumbar region
CPT/HCPCS: 36415; 72040; 72070; 72100; 85651; 86140

== ENCOUNTER 2019-02-14 13:39 | Emergency (ER) | payer MEDICARE, OTHER ==
[2019-02-14] MEDS ORDERED: TRIAMCINOLONE 40 MG/ML VIAL IM STA (14:23)
[2019-02-14] MEDS ORDERED: KETOROLAC 30 MG/ML VIAL IM STA (14:23)
[2019-02-14] MEDS ORDERED: HYDROmorphone 2 MG/ML VIAL IM STA (14:23)
[2019-02-14] MEDS ORDERED: LIDOCAINE PATCH 5% TOP STA (14:25)
--- NOTE | 2019-02-14 14:47 | ED Physician Documentation ---
PD HPI BACK PAIN - Stated complaint Stated Complaint: BACK PX - Chief complaint Chief Complaint: Back Pain - History obtained from History obtained from: Patient - History of Present Illness Timing - onset: How many weeks ago (3) Timing - duration: Weeks (3) Timing - details: Gradual onset, Still present, Waxing and waning Location: Lower, Right Quality: Pain, Spasm, Aching Associated symptoms: No: Fever, Weakness, Numbness Improves with: Rest. No: Meds Worsened by: Movement, Twisting Contributing factors: Lifting. No: Trauma, Anticoagulated Recently seen: Clinic, Emergency Dept Review of Systems Constitutional: denies: Fever, Chills, Myalgias Nose: denies: Rhinorrhea / runny nose, Congestion Throat: denies: Sore throat Cardiac: denies: Chest pain / pressure Respiratory: denies: Cough GI: denies: Abdominal Pain, Nausea, Vomiting Skin: denies: Rash, Lesions Musculoskeletal: reports: Back pain Neurologic: denies: Focal weakness, Numbness, Near syncope PD PAST MEDICAL HISTORY - Past Medical History Past Medical History: No Cardiovascular: Hypertension Respiratory: COPD, Shortness of breath, Sleep apnea Endocrine/Autoimmune: HyPOthyroidism GI: Ulcers : None Psych: Depression Musculoskeletal: Fatigue, Chronic back pain Derm: None, Herpes zoster - Past Surgical History Past Surgical History: Yes General: Appendectomy Cardiovascular: Valve replacement HEENT: Tonsil/Adenoidectomy Derm: Skin cancer surgery - Present Medications Home Medications: Ambulatory Orders Medication Instructions Recorded Confirmed Celecoxib 200 mg PO DAILY PRN 12/18/16 02/14/19 Cholecalciferol (Vitamin D3) 1,000 unit PO DAILY 12/18/16 02/14/19 [Vitamin D3] Clopidogrel Bisulfate [Plavix] 75 tab PO DAILY 12/18/16 02/14/19 Levothyroxine Sodium [Levo-T] 175 mcg PO DAILY 12/18/16 02/14/19 Losartan [Cozaar] 12.5 mg PO DAILY 12/18/16 02/14/19 diazePAM [Valium] 2.5 mg PO DAILY PRN 12/18/16 02/14/19 predniSONE [Prednisone] 6 mg PO QPM 12/18/16 02/14/19 Cyclobenzaprine [Flexeril] 10 mg PO TID PRN #20 tablet 02/08/19 02/14/19 Oxycodone HCl/Acetaminophen 1 - 2 each PO Q6H PRN #14 tablet 02/08/19 02/14/19 [Percocet 5-325 mg Tablet] Docusate Calcium 240 mg PO DAILY #30 capsule 02/14/19 Lidocaine Patch 5% [Lidoderm Patch] 1 patch TOP DAILY PRN #10 patch 02/14/19 Tizanidine HCl 4 mg PO TID PRN #25 capsule 02/14/19 oxyCODONE [Roxicodone] 10 mg PO TID #25 tablet 02/14/19 - Allergies Allergies/Adverse Reactions: Allergies Allergy/AdvReac Type Severity Reaction Status Date / Time No Known Drug Allergies Allergy Verified 02/14/19 13:53 - Social History Does the pt smoke?: No Smoking Status: Never smoker Does the pt drink ETOH?: Yes Does the pt have substance abuse?: No - Immunizations Immunizations are current?: Yes - POLST Patient has POLST: No POLST Status: Full Code PD ED PE NORMAL - Vitals Vital signs reviewed: Yes - General General: Alert and oriented X 3, No acute distress, Well developed/nourished - Neck Neck: Supple, no meningeal sign, No adenopathy - Cardiac Cardiac: RRR, No murmur - Respiratory Respiratory: Clear bilaterally - Abdomen Abdomen: Normal bowel sounds, Soft, Non tender, Non distended - Back Back: No spinal TTP (back is most tender right lateral low back along upper SI joint area. ) - Derm Derm: Normal color, Warm and dry - Extremities Extremities: No tenderness to palpate, Normal ROM s pain, No edema, No calf tenderness / cord - Neuro Neuro: Alert and oriented X 3, No motor deficit, No sensory deficit, Normal speech Results - Vitals Vitals: Vital Signs - 24 hr 02/14/19 02/14/19 13:49 15:14 Temperature 36.8 C 36.6 C Heart Rate 66 57 L Respiratory 18 18 Rate Blood Pressure 195/102 H 130/94 H O2 Saturation 96 90 L Oxygen O2 Source Room air PD MEDICAL DECISION MAKING - ED course Complexity details: reviewed old records, reviewed results (xrays from last week were without any acute process.), considered differential (has low back pain with xrays last week (no acute) and MRI planned for tomorrow. Having increased pain over baseline. ), d/w patient Departure - Departure Disposition: 01 Home, Self Care Clinical Impression: Acute exacerbation of chronic low back pain, SI (sacroiliac) joint inflammation Condition: Stable Record reviewed to determine appropriate education?: Yes Instructions: ED Sciatica Follow-Up: Williams Courtney MD [Primary Care Provider] - Prescriptions: Docusate Calcium 240 mg PO DAILY #30 capsule Lidocaine Patch 5% [Lidoderm Patch] 1 patch TOP DAILY PRN #10 patch PRN Reason: pain oxyCODONE [Roxicodone] 10 mg PO TID #25 tablet Tizanidine HCl 4 mg PO TID PRN #25 capsule PRN Reason: Spasms Comments: Use the lidocaine patches over the most sore area and change it daily. Use Tylenol 650 mg 4 times a day. Used tizanidine muscle relaxant rather than the baclofen and see if it works better. Continue your other usual medications. Add oxycodone 10 mg tablets 3 times a day as needed for the pain. Also add docusate stool softener daily. Follow-up for your MRI as scheduled tomorrow and then your primary care provider after that. Discharge Date/Time: 02/14/19 15:18
[2019-02-14 15:15] VITALS: BP 130/94
== END 2019-02-14 15:18 | disposition home or self-care (01) ==
LOC: ED 13:39
DX: G89.29 Other chronic pain (principal); M54.5 Low back pain; M46.1 Sacroiliitis, not elsewhere classified; I10 Essential (primary) hypertension
CPT/HCPCS: 96372; 99283; A9270; J1170

== ENCOUNTER 2019-02-18 14:52 | Outpatient (CLI) | payer MEDICARE, OTHER ==
--- NOTE | 2019-02-21 09:49 | MRI Report ---
Reason: SCOLIOSIS OF LUMBAR SPINE,THORACIC SPINE,LOW BACK Procedure Date: 02/18/2019 Accession Number: [id number] / [id number] Procedure: MRI - Lumbar Spine W/O CPT Code: FULL RESULT: EXAM: MRI LUMBAR SPINE WITHOUT CONTRAST EXAM DATE: 02/18/2019 04:18 PM. CLINICAL HISTORY: SCOLIOSIS OF LUMBAR SPINE,THORACIC SPINE,LOW BACK. COMPARISON: LUMBAR SPINE W/O 09/26/2016 2:00 PM. TECHNIQUE: Multiplanar, multisequence T1-weighted and fluid-sensitive sequences of the lumbar spine from T11 to S2 without contrast. Other: None. FINDINGS: Spinal Canal: The conus terminates at L1. The conus medullaris and cauda equina are unremarkable. Alignment: Again there is S-shaped scoliosis of the lower thoracic lumbar spine. There is 22 degrees dextroscoliosis measured between T12-L1 and L3-L4. There is 8 mm rightward displacement of L3 on L4. Bone Marrow: Five hjz-hva-sbbasbl lumbar vertebral bodies are assumed. No gross fractures or bone lesions. No bone marrow replacement. Disk Levels/Facets: T12-L1: Unremarkable. L1-L2: There is a left paracentral/foraminal disk protrusion. There is a intermediate T2, intermediate T1 signal area involving the left aspect of the central canal. This appears contiguous with facets and has surrounding low T1 signal. This measures 6 x 11 x16 mm. There is severe narrowing of left aspect of central canal and left neural foramen. (New) L2-L3: There is disk height loss and endplate degenerative changes. There is moderate bilateral facet hypertrophy and ligamentum flavum thickening. There is a mild disk bulge. There is moderate central canal narrowing. There is mild right and moderate left neural foraminal narrowing. (Unchanged) L3-L4: There is a broad-based disk bulge. There is moderate facet hypertrophy. There is moderate central canal narrowing. There is moderate right and mild left neural foraminal narrowing. L4-L5: There is a broad-based disk bulge. There is 3 mm anterolisthesis of L4 on L5. There is severe right facet hypertrophy. There is moderate left facet hypertrophy. There is moderate central canal narrowing. There is moderate right and mild left neural foraminal narrowing. Unchanged) L5-S1: There is disk height loss. There is a broad-based disk bulge. There is moderate bilateral facet hypertrophy. There is mild central canal narrowing. There is moderate bilateral neural foraminal narrowing. Musculature: Normal. No edema or fatty atrophy. Other: There is moderate atrophy of posterior paraspinous musculature. IMPRESSION: 1. L1-L2 new severe narrowing of left aspect of central canal and left neural foramen. There is secondary to 1.6 cm soft tissue abnormality. This may represent a somewhat atypical appearance of a synovial cyst. If clinically indicated and there is concern for soft tissue mass, postcontrast imaging may be helpful. 2. 22 degrees dextroscoliosis, unchanged. 3. L2-L3, L3-L4, and L4-L5 disk bulges and posterior element degenerative changes with moderate central canal narrowing, unchanged. 4. Moderate right L3-L4, moderate right L4-L5, and moderate bilateral L5-S1 neural foraminal narrowing, unchanged. RADIA
--- NOTE | 2019-02-21 10:07 | MRI Report ---
Reason: SCOLIOSIS OF LUMBAR SPINE,THORACIC SPINE,LOW BACK Procedure Date: 02/18/2019 Accession Number: [id number] / [id number] Procedure: MRI - Thoracic Spine W/O CPT Code: FULL RESULT: EXAM: MRI THORACIC SPINE WITHOUT CONTRAST EXAM DATE: 02/18/2019 04:20 PM. CLINICAL HISTORY: SCOLIOSIS OF LUMBAR SPINE,THORACIC SPINE,LOW BACK. COMPARISONS: THORACIC SPINE 2 VIEW 02/09/2019 4:16 PM CHEST W/ 12/27/2017 2:31 PM CHEST W/O 12/23/2018 1:48 PM LUMBAR SPINE W/O 02/18/2019 3:53 PM CHEST 2 VIEW 01/15/2019 1:26 PM. TECHNIQUE: Multiplanar, multisequence T1-weighted and fluid-sensitive sequences of the thoracic spine from C7 to L1 without contrast. Other: None. FINDINGS: Spinal Canal: No signal abnormality in the visualized spinal cord. Alignment: There is mild thoracic levoscoliosis. No coronal imaging obtained for measurement. Bone Marrow: No gross fractures or bone lesion. No bone marrow replacement. Disk Levels/Facets: There are small disk protrusions at T7-T8 19 88-9. No significant central canal or neural foraminal narrowing. Musculature: Normal. No edema or fatty atrophy. Other: There is biapical scarring as noted in 12/23/2018 CT. IMPRESSION: 1. Small disk protrusions at T7-T8, T8-T9, without significant central canal narrowing. 2. Mild thoracic levoscoliosis. RADIA
== END 2019-02-18 14:53 | disposition home or self-care (01) ==
LOC: DI 14:52
PROVIDERS: ATTEND Nurse Practitioner
DX: M41.86 Other forms of scoliosis, lumbar region (principal); M51.26 Other intervertebral disc displacement, lumbar region; M48.061 Spinal stenosis, lumbar region without neurogenic claudication; M41.84 Other forms of scoliosis, thoracic region; M51.24 Other intervertebral disc displacement, thoracic region
CPT/HCPCS: 72146; 72148

== ENCOUNTER 2019-02-21 07:27 | Day surgery (SDC) | payer MEDICARE, OTHER ==
[2019-02-21] MEDS ORDERED: LACTATED RINGERS 1,000 ML IV ONE ×2 (07:35→08:48)
[2019-02-21] MEDS ORDERED: BUPIVACAINE 0.5% PF 10 ML VIAL ONE (07:37)
[2019-02-21] MEDS ORDERED: CEFAZOLIN SODIUM IN 0.9 % NACL 2 GM/100 ML BAG IV ONE (07:52)
--- NOTE | 2019-02-21 08:11 | ANESTHESIA ---
Pre-Anesthesia VS, & Labs - Diagnosis Recurrent left inguinal hernia - Procedure Left inguinal hernia repair Vital Signs: Temp Pulse Resp BP Pulse Ox 36.4 C L 78 12 191/95 H 98 02/21/19 07:35 02/21/19 07:35 02/21/19 07:35 02/21/19 08:05 02/21/19 07:35 Height 5 ft 5 in Weight (kg) 66.5 kg Body Mass Index 24.8 - NPO >8 hours Home Medications and Allergies Celecoxib 200 mg PO DAILY PRN 12/18/16 Cholecalciferol (Vitamin D3) [Vitamin D3] 1,000 unit PO DAILY 12/18/16 Clopidogrel Bisulfate [Plavix] 75 tab PO DAILY 12/18/16 Levothyroxine Sodium [Levo-T] 175 mcg PO DAILY 12/18/16 Losartan [Cozaar] 12.5 mg PO DAILY 12/18/16 predniSONE [Prednisone] 20 mg PO QPM 12/18/16 Allergies/Adverse Reactions: Allergies Allergy/AdvReac Type Severity Reaction Status Date / Time Latex, Natural Rubber Allergy respiratory Verified 02/16/19 14:34 distress Anes History & Medical History - Medical History Cardiovascular: reports: Hypertension, High cholesterol, Valve disorder (Had aortic valve replacement in 2009. Has not seen loss prevention agent for 5 years. Reports >4mets exercise tolerance without any SOB/CP. Patient hypertensive on admission, labetalol given.) Pulmonary: reports: None Gastrointestinal: reports: GERD, Ulcers Urinary: reports: Benign prostate hypertrophy Neuro: reports: None Musculoskeletal: reports: Osteoarthritis, Gout, Fatigue, Scoliosis, Chronic back pain, Other Endocrine/Autoimmune: reports: HyPOthyroidism Blood Disorders: reports: None Skin: reports: Herpes zoster, Other Smoking Status: Former smoker (quit at 31 years of age.) Psychosocial: reports: Anxiety - Surgical History General: Appendectomy, Colonoscopy, Other Eyes Ears Nose Throat (EENT): Cataracts, Tonsil/Adenoidectomy, Other (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 S/p radiation.) Cardiothoracic: Valve replacement, Vascular surgery (Left open CEA after failed stent placement.) Orthopedic: Carpal Tunnel surgery Dermatologic: Skin cancer surgery Exam General: Alert, Oriented x3, Cooperative, No acute distress Dental: Other (bridge) Mouth Openin Fingerbreadth Neck Mobility: Reduced Mallampati classification: III Thyromental Distance: 4-6 cm Respiratory: Lungs clear, Normal breath sounds, No respiratory distress, No accessory muscle use Cardiovascular: Regular rate, Other (systolic murmur) Mental/Cognitive Status: Alert/Oriented X3, Normal for patient Plan Anesthesia Type: General (Patient has had extensive neck/jaw surgery. Limited mouth opening. Has had several GA w/o issues.) Consent for Procedure(s) Verified and Reviewed: Yes Code Status: Attempt Resuscitation ASA classification: 3-Severe systemic disease Is this case an emergency?: No
[2019-02-21] MEDS: LABETALOL 20 MG/4 ML SYRINGE IVP ONE ×2 (08:20→09:07)
[2019-02-21] MEDS ORDERED: LIDOCAINE-MPF 2% 5 ML VIAL IM ONE (09:30)
[2019-02-21] MEDS ORDERED: fentaNYL 100 MCG/2 ML VIAL IVP ONE (09:30)
[2019-02-21] MEDS ORDERED: ONDANSETRON 4 MG/2 ML VIAL IVP ONE (09:30)
[2019-02-21] MEDS ORDERED: MIDAZOLAM 2 MG/2 ML VIAL IVP ONE (09:30)
[2019-02-21] MEDS ORDERED: PROPOFOL 200 MG/20 ML VIAL IVP ONE (09:30)
[2019-02-21] MEDS ORDERED: DEXAMETHASONE 4 MG/ML VIAL IVP ONE (09:30)
[2019-02-21] MEDS ORDERED: BUPIVACAINE 0.5% PF 30 ML VIAL INFIL ONE ×2 (09:41→10:10)
--- NOTE | 2019-02-21 10:23 | OPERATIVE REPORT ---
Operative Report - General Procedure Date: 02/21/19 Planned Procedure: Recurrent left inguinal herniorrhaphy Pre-Op Diagnosis: Recurrent left inguinal hernia Procedure Performed: Recurrent direct incarcerated left inguinal herniorrhaphy with mesh, excision cord lipoma Post Op Diagnosis: Recurrent left incarcerated direct inguinal hernia, cord lipoma - Procedure Note Primary Surgeon: Braydon Borja MD Anesthesia Provider: Karrie Graves CRNA Anesthesia Technique: General ET tube, Local (30 mL of half percent Marcaine) IV Fluids (mL): 400 Estimated Blood Loss (mL): 5 Drain/Tube Type: Other (None.) Complications: None. - Other Other Information/Narrative: OPERATIVE DESCRIPTION/REPORT: After verbal and written informed consent was obtained detailing the risks of infection, bleeding requiring transfusion with its risks, nerve injury, and , and after I met with the patient confirming the surgery and the site of the surgery and after initialing the site of the surgery with a surgical marker, the patient was brought to the operative suite and placed supine on the operating table. Great care was taken to avoid pressure points to prevent pressure necrosis or nerve injury. Monitoring devices were applied along with TEDs and pneumatic compressive stockings (to prevent DVT). The patient received preoperative antibiotics for surgical prophylaxis. Karrie Graves CRNA sedated and anesthetized the patient for the entire procedure. The patient was prepped and draped in the usual sterile manner. With the patient draped my initials were clearly visible. A "time in" then confirmed that the patient was identified with 3 identifiers (name, date and medical record number), the history and physical was in the chart, the signed consent confirming the procedure was in the chart, the patient was in the correct position, the aforementioned prophylactic measures were in place or given, we had the correct personnel and equipment to complete the procedure and that anesthesia, surgery and nursing were given an opportunity to express any concerns. With the agreement of everyone in the room, we proceeded with the operation. A standard inguinal incision was made tracing the medial aspect of the previous incision and dissection was carried down to the external oblique aponeurosis using a combination of Metzenbaum scissors and Bovie electrocautery. The external oblique aponeurosis was cleared of overlying adherent tissue, and the external ring was delineated. The external oblique was the incised with a scalpel and this incision was carried out to the external ring using Metzenbaum scissors. Having exposed the inguinal canal, the cord structures were from the canal using blunt dissection, and a Darrington drain was placed around the cord structures at the level of the pubic tubercle. This Darrington drain was then used to retract the cord structures as needed. Adherent cremasteric muscle was dissected free from the cord using Bovie electrocautery. The cord was then explored using a combination of sharp and blunt dissection, and no sac was found. Dissection along the cord structures found a lipoma that was dissected back to the internal ring, ligated with a 3-0 Vicryl, transected, the stump cauterized and allowed to retract back into the abdomen. The hernia was found coming from the floor of the inguinal canal immediately lateral to the pubic tubercle. The sac was freed from the cord contents as well as the surrounding structures using a combination of Metzenbaum scissors as well as Bovie electrocautery. Despite numerous attempts this could not be placed back into the abdomen. As such, I placed a right angle laterally under the floor and opened the defect 4 mm in order to allow reduction of the hernia sac. With this additional opening the reduction of the hernia sac back into the abdomen proved easy. The hernia was inverted back into the abdominal cavity and a medium Covidien plug (Ref# [id number], Lot# [id number], use by date 2023-09-26) inserted into the hernia defect. The plug was secured to the edge of the hernia defect using 2 interrupted figure-8 0 PDS sutures. This permitted the floor of the inguinal canal to be repaired without the hernia in my way. The Perfix enlay patch was then placed on the floor of the inguinal canal and secured superiorly to the conjoined tendon and inferiorly to the shelving edge of Pouparts ligament using interrupted 2-0 PDS sutures. At the pubic tubercle a 2-0 PDS stitch was used to secure the mesh. The mesh was secured around the cord structures with a 2-0 PDS loosely thus creating a new internal ring. The Darrington drain was removed. Meticulous hemostasis was noted to be present. The incision in the external oblique was approximated using a 2-0 Vicryl in a running fashion, thus reforming the external ring. The fascia, subcutaneous tissues, and skin were injected with half percent Marcaine for long-term anesthetic control. The skin incision was approximated with 4-0 Monocryl in a subcuticular fashion. The skin was prepped with benzoin and steristrips were applied. At this point a time out was performed that confirmed that all the counts were correct, the procedure that was performed, the blood loss, the IV fluids administered, and the patients condition. A dressing was then applied. Gentle downward traction ensured that the testes were well seated in the scrotum. Having tolerated the procedure well, the patient was taken to recovery room in good and stable condition. [employer] disclaimer: This document was created in part using voice recognition technology. Because of the inherent limitations of the system ([employer]'s [employer] Dictate user manual states that the licensee understands that speech recognition is a statistical process and that recognition errors are inherent in the process), occasional same sounding word substitutions and grammatical errors do occur and persist despite proofreading. Please read this document for context.
[2019-02-21] MEDS ORDERED: ONDANSETRON 4 MG/2 ML VIAL IVP PRN (10:33)
[2019-02-21] MEDS ORDERED: HYDROmorphone 0.5 MG/0.5 ML SYRINGE IVP PRN (10:33)
[2019-02-21] MEDS ORDERED: oxyCODONE 5 MG TABLET PO PRN (10:33)
[2019-02-21] MEDS: fentaNYL 100 MCG/2 ML VIAL ONE ×2 (10:55→11:00)
[2019-02-21] MEDS ORDERED: oxyCODONE 5 MG TABLET ONE (12:12)
[2019-02-21 12:18] VITALS: BP 148/61
== END 2019-02-21 07:28 | disposition home or self-care (01) ==
LOC: SDS 07:27
PROVIDERS: ATTEND Surgery
PROC: 0VBG0ZZ Excision of Left Spermatic Cord, Open Approach (ICD-10-PCS; 2019-02-21)
PROC: 0YU60JZ Supplement Left Inguinal Region with Synthetic Substitute, Open Approach (ICD-10-PCS; principal; 2019-02-21 08:45)
DX: K40.31 Unilateral inguinal hernia, with obstruction, without gangrene, recurrent (principal); D17.6 Benign lipomatous neoplasm of spermatic cord; I10 Essential (primary) hypertension; I25.10 Atherosclerotic heart disease of native coronary artery without angina pectoris; Z95.2 Presence of prosthetic heart valve; Z87.891 Personal history of nicotine dependence; Z79.899 Other long term (current) drug therapy; Z85.810 Personal history of malignant neoplasm of tongue; Z92.3 Personal history of irradiation; Z95.5 Presence of coronary angioplasty implant and graft
CPT/HCPCS: 49521; 55520; A9270; C1781; J0690; J7120

== ENCOUNTER 2019-03-29 10:57 | Outpatient (CLI) | payer MEDICARE, OTHER ==
--- NOTE | 2019-03-29 13:57 | Ultrasound Report ---
Reason: PAIN Procedure Date: 03/29/2019 Accession Number: [id number] / [id number] Procedure: US - Pelvic Limited or F/U CPT Code: FULL RESULT: EXAM: INGUINAL ULTRASOUND EXAM DATE: 03/29/2019 11:22 AM. CLINICAL HISTORY: PAIN. Recent hernia repair. Now with left groin pain and palpable lump COMPARISON: 11/15/2018 ultrasound TECHNIQUE: Real-time sonographic imaging of the left inguinal canal with me present and vascular structures, including color-flow, was performed by the energy scheduler in both the supine and upright positions, with and without Valsalva. Multiple public service representative static images were saved for review. FINDINGS: A small postoperative hematoma is seen extending from the skin surface to the palpable abnormality in the left inguinal region. The abnormality is a complex appearing 1.5 x 2.7 x 2.4 cm area of heterogenous echotexture and some internal vascularity. No peristalsis is seen within nor is there a change in configuration with Valsalva or position changes.. A direct connection with the abdominal cavity cannot be identified. There is, however, shadowing from the surgical mesh which limits visualization. IMPRESSION: Small postoperative hematoma left groin. In addition there is a complex appearing 1.5 x 2.7 x 2.4 cm area In the left groin which could potentially represent a recurrent hernia versus a postoperative collection. Unfortunately due to shadowing from the surgical mesh we are unable to see if there is an intra-abdominal communication. Suggest further evaluation of this area by noncontrast pelvic CT. RADIA
== END 2019-03-29 10:58 | disposition home or self-care (01) ==
LOC: DI 10:57
PROVIDERS: ATTEND Surgery
DX: R10.32 Left lower quadrant pain (principal); R19.09 Other intra-abdominal and pelvic swelling, mass and lump; L76.32 Postprocedural hematoma of skin and subcutaneous tissue following other procedure
CPT/HCPCS: 76857

== ENCOUNTER 2019-04-14 11:42 | Inpatient (IN) | payer MEDICARE, OTHER ==
--- NOTE | 2019-04-14 12:05 | ED Physician Documentation ---
History of Present Illness - Stated complaint Stated Complaint: FEVER/ WEAKNESS - Chief complaint Chief Complaint: Resp - History obtained from History obtained from: Patient - History of Present Illness Timing: Yesterday - Additonal information Additional information: Patient is an 83-year-old male with complicated past medical history including recent left inguinal hernia repair about 4 to 5 weeks ago presenting with generalized weakness and subjective fever. Patient reports chronic low back pain, as well as intermittent abdominal pain surrounding area of hernia, although denies any complications with abdominal surgery healing such as new redness or drainage.Patient denies nausea, vomiting, urinary changes, or stool changes. Patient is requiring several liters of oxygen and has history of COPD, but denies use of CPAP or supplemental oxygen at home. Patient does report productive cough. He denies chest pain. No other improving or worsening fac tors noted. Review of Systems Constitutional: reports: Fever Respiratory: reports: Cough. denies: Dyspnea GI: reports: Abdominal Pain. denies: Nausea, Vomiting, Diarrhea : denies: Dysuria Neurologic: reports: Generalized weakness PD PAST MEDICAL HISTORY - Past Medical History Cardiovascular: Hypertension Respiratory: COPD, Shortness of breath, Sleep apnea Neuro: None Endocrine/Autoimmune: HyPOthyroidism GI: Ulcers : None Psych: Depression Musculoskeletal: Fatigue, Chronic back pain Derm: None, Herpes zoster - Past Surgical History Past Surgical History: Yes General: Appendectomy, Other (Hernia repair) Cardiovascular: Valve replacement, Vascular surgery (Left open CEA after failed stent placement.) HEENT: Tonsil/Adenoidectomy Derm: Skin cancer surgery - Present Medications Home Medications: Ambulatory Orders Medication Instructions Recorded Confirmed Clopidogrel Bisulfate [Plavix] 75 mg PO DAILY 12/18/16 04/14/19 RX: Cholecalciferol (Vitamin D3) 1,000 units PO DAILY 12/18/16 04/14/19 [Vitamin D3] RX: Levothyroxine Sodium [Levo-T] 175 mcg PO QDAC 12/18/16 04/14/19 RX: Losartan [Cozaar] 12.5 mg PO DAILY 12/18/16 04/14/19 Celecoxib [CeleBREX] 200 mg PO DAILY PRN 04/14/19 04/14/19 RX: Aspirin/Caffeine [Back-Body 2 tab PO DAILY PRN 04/14/19 04/14/19 Pain 500-32.5MG Cplt] RX: PARoxetine HCl [Paroxetine HCl] 20 mg PO DAILY 04/14/19 04/14/19 RX: Prednisone 5 mg PO DAILY 04/14/19 04/14/19 diazePAM [Diazepam] 2.5 mg PO QPM PRN 04/14/19 04/14/19 - Allergies Allergies/Adverse Reactions: Allergies Allergy/AdvReac Type Severity Reaction Status Date / Time Latex, Natural Rubber Allergy respiratory Verified 04/14/19 11:55 distress - Social History Does the pt smoke?: No Smoking Status: Former smoker (quit at 31 years of age.) Does the pt drink ETOH?: Yes Does the pt have substance abuse?: No - Immunizations Immunizations are current?: Yes - POLST Patient has POLST: No POLST Status: Full Code PD ED PE NORMAL - Vitals Vital signs reviewed: Yes - General General: Alert and oriented X 3, No acute distress, Other (Frail, chronically ill appearing) - HEENT HEENT: Atraumatic, Pharynx benign. No: Moist mucous membranes - Cardiac Cardiac: RRR, No murmur - Respiratory Respiratory: No respiratory distress. No: Clear bilaterally (No wheezing, rales, rhonchi, but poor air movement throughout.) - Abdomen Abdomen: Normal bowel sounds, Soft, Non tender, Non distended, Other (Healed scar to left lower abdomen without tenderness, erythema, drainage or other complication) - Derm Derm: Normal color, Warm and dry, No rash - Extremities Extremities: No deformity, No tenderness to palpate - Neuro Neuro: Alert and oriented X 3, No motor deficit, No sensory deficit - Psych Psych: Normal mood, Normal affect Results - Vitals Vitals: Vital Signs - 24 hr 04/14/19 04/14/19 04/14/19 11:52 12:52 13:58 Temperature 37.2 C 37.7 C H Heart Rate 84 75 76 Respiratory 20 20 18 Rate Blood Pressure 119/59 L 111/56 L 118/59 L O2 Saturation 77 L 94 94 04/14/19 04/14/19 04/14/19 14:30 15:41 16:00 Temperature 37 C Heart Rate 68 72 Respiratory 20 18 Rate Blood Pressure 129/70 109/58 L O2 Saturation 95 93 85 L 04/14/19 16:11 Temperature Heart Rate Respiratory Rate Blood Pressure O2 Saturation 93 Oxygen O2 Source Nasal cannula - Labs Labs: Laboratory Tests 04/14/19 04/14/19 04/14/19 12:25 12:25 12:25 WBC 8.8 RBC 4.15 L Hgb 12.7 L Hct 41.2 L MCV 99.3 H MCH 30.6 MCHC 30.8 L RDW 14.6 Plt Count 236 MPV 11.3 Neut # (Auto) 7.1 H Lymph # (Auto) 0.5 L [place] # (Auto) 1.1 H Eos # (Auto) 0.1 Baso # (Auto) 0.0 Absolute Nucleated RBC 0.00 Nucleated RBC % 0.0 PT 12.2 INR 1.1 APTT 26.4 VBG pH VBG pCO2 VBG pO2 VBG HCO3 VBG Total CO2 VBG O2 Saturation VBG Base Excess Sodium 141 Potassium 4.4 Chloride 103 Carbon Dioxide 30 Anion Gap 8.0 BUN 26 H Creatinine 1.4 H Estimated GFR (MDRD) 48 L Glucose 101 H Lactic Acid Calcium 8.8 Total Bilirubin 1.2 H AST 17 ALT 15 Alkaline Phosphatase 61 Total Protein 6.3 L Albumin 3.6 Globulin 2.7 Albumin/Globulin Ratio 1.3 Lipase 25 Urine Color Urine Clarity Urine pH Ur Specific [place] Urine Protein Urine Glucose (UA) Urine Ketones Urine Occult Blood Urine Nitrite Urine Bilirubin Urine Urobilinogen Ur Leukocyte Esterase Ur Microscopic Review Urine Culture Comments 04/14/19 04/14/19 04/14/19 12:25 12:25 14:20 WBC RBC Hgb Hct MCV MCH MCHC RDW Plt Count MPV Neut # (Auto) Lymph # (Auto) [place] # (Auto) Eos # (Auto) Baso # (Auto) Absolute Nucleated RBC Nucleated RBC % PT INR APTT VBG pH 7.388 VBG pCO2 50.4 VBG pO2 28.9 VBG HCO3 19.7 L VBG Total CO2 31.2 H VBG O2 Saturation 56.8 L VBG Base Excess 3.7 H Sodium Potassium Chloride Carbon Dioxide Anion Gap BUN Creatinine Estimated GFR (MDRD) Glucose Lactic Acid 0.7 Calcium Total Bilirubin AST ALT Alkaline Phosphatase Total Protein Albumin Globulin Albumin/Globulin Ratio Lipase Urine Color YELLOW Urine Clarity CLEAR Urine pH 6.0 Ur Specific [place] 1.020 Urine Protein TRACE Urine Glucose (UA) NEGATIVE Urine Ketones NEGATIVE Urine Occult Blood NEGATIVE Urine Nitrite NEGATIVE Urine Bilirubin NEGATIVE Urine Urobilinogen 0.2 (NORMAL) Ur Leukocyte Esterase NEGATIVE Ur Microscopic Review NOT INDICATED Urine Culture Comments NOT INDICATED PD MEDICAL DECISION MAKING - ED course Complexity details: reviewed results, re-evaluated patient, considered differential, d/w patient, d/w family, d/w clinical services consultant ED course: Patient presenting with new hypoxia, as well as other respiratory complaints concerning for pneumonia. Patient started on supplemental oxygen and was able to be decreased slightly, but never removed fully from oxygen without desaturating into the mid 80s. Do not have high suspicion for PE, ACS, AR, unstable angina, dissection, aneurysm at this time, but considered. Given gerald rn for infection obtained cultures as well as other screening lab work and urine testing. Patient did not exhibit significant leukocytosis or elevation of lactic acid. Urine did not show infection. Remainder screening lab work relatively unremarkable and otherwise reflective of age and other comorbidities. Chest x-ray did reveal likely pneumonia and given patient's continued hypoxia, felt most appropriate to treat with IV antibiotics and admit to the hospital. Patient and amenable to this plan. Spoke with hospitalist who is also agreeable. Departure - Departure Disposition: 66 [facility] DC/Xfer Clinical Impression: Pneumonia Discharge Date/Time: 04/14/19 18:16
[2019-04-14] MEDS ORDERED: SODIUM CHLORIDE 0.9% 1,000 ML IV ONE (12:10)
[2019-04-14] MEDS ORDERED: ACETAMINOPHEN 325 MG TABLET PO STA (12:10)
[2019-04-14 12:32] LABS: BASOPHILS % (AUTO) 0.3 %; EOSINOPHILS # (AUTO) 0.1 10^3/uL (0.0-0.7); EOSINOPHILS % (AUTO) 0.8 %; HGB - HEMOGLOBIN 12.7 g/dL (14.0-18.0); LYMPHOCYTES # (AUTO) 0.5 10^3/uL (1.5-3.5); LYMPHOCYTES % (AUTO) 6.1 %; MEAN CORPUSCULAR HEMOGLOBIN 30.6 pg (27.0-31.0); MEAN CORPUSCULAR HGB CONC 30.8 g/dL (32.0-36.0); MEAN CORPUSCULAR VOLUME 99.3 fL (80.0-94.0); MEAN PLATELET VOLUME 11.3 fL (7.4-11.4); MONOCYTES # (AUTO) 1.1 10^3/uL (0.0-1.0); MONOCYTES % (AUTO) 12.1 %; NEUTROPHILS # (AUTO) 7.1 10^3/uL (1.5-6.6); NEUTROPHILS % (AUTO) 80.2 %; PLT - PLATELET COUNT 236 10^3/uL (130-450); RED BLOOD COUNT 4.15 10^6/uL (4.70-6.10); RED CELL DISTRIBUTION WIDTH 14.6 % (12.0-15.0); WHITE BLOOD COUNT 8.8 x10^3/uL (4.8-10.8)
[2019-04-14 12:34] LABS: VBG BASE EXCESS 3.7 mmol/L (-2 - +2); VBG PCO2 50.4 mmHg (41-51); VBG PH 7.388 (7.31-7.41); VBG PO2 28.9 mmHg (25-47); VBG TOTAL CO2 31.2 mmol/L (24-29)
[2019-04-14 12:43] LABS: ALBUMIN 3.6 g/dL (3.2-5.5); ALBUMIN/GLOBULIN RATIO 1.3 (1.0-2.2); BILIRUBIN,TOTAL 1.2 mg/dL (0.2-1.0); CALCIUM 8.8 mg/dL (8.5-10.3); CREATININE 1.4 mg/dL (0.6-1.2); TOTAL PROTEIN 6.3 g/dL (6.7-8.2)
[2019-04-14 13:00] LABS: INR 1.1 (0.8-1.2); PT - PROTHROMBIN TIME 12.2 secs (9.9-12.6)
[2019-04-14 13:07] LABS: PARTIAL THROMBOPLASTIN TIME 26.4 secs (24.9-33.3)
--- NOTE | 2019-04-14 14:01 | XRAY Report ---
Reason: cough Procedure Date: 04/14/2019 Accession Number: [id number] / [id number] Procedure: XR - Chest 2 View X-Ray CPT Code: 61508 FULL RESULT: EXAM: CHEST RADIOGRAPHY, 2 VIEWS EXAM DATE: 04/14/2019 12:52 PM. CLINICAL HISTORY: Cough. COMPARISON: CHEST 2 VIEW 01/15/2019 1:26 PM. CHEST W/O 12/23/2018 1:48 PM. CHEST 2 VIEW 12/17/2018 12:46 PM. TECHNIQUE: Sitting frontal and lateral views. FINDINGS: Lungs/Pleura: Suboptimal inspiratory effort with moderate elevation right hemidiaphragm. Patchy infiltrate and/or atelectasis right lung base. Lungs otherwise clear of infiltrate, effusion or pneumothorax. Mediastinum: Heart size normal with postsurgical changes. No adenopathy or pulmonary vascular congestion. Other: Trachea is midline. Median sternotomy wires are intact. Osseous structures unremarkable for age. IMPRESSION: Suboptimal inspiratory effort with patchy area of infiltrate and/or atelectasis right lung base. RADIA
[2019-04-14] MEDS ORDERED: AZITHROMYCIN INJ 500 MG in SODIUM CHLORIDE 0.9% 250 ML IV STA (14:04)
[2019-04-14] MEDS ORDERED: cefTRIAXone 1 GM VIAL IVP STA (14:04)
[2019-04-14 14:25] LABS: BILIRUBIN,URINE NEGATIVE (NEGATIVE); GLUCOSE, URINE (UA) NEGATIVE (NEGATIVE); KETONES,URINE (UA) NEGATIVE (NEGATIVE); LEUKOCYTE ESTERASE, URINE NEGATIVE (NEGATIVE); NITRITE,URINE NEGATIVE (NEGATIVE); OCCULT BLOOD,URINE NEGATIVE (NEGATIVE); PROTEIN,URINE TRACE mg/dL (NEGATIVE); UROBILINOGEN,URINE 0.2 (NORMAL) E.U./dL (NORMAL)
[2019-04-14 14:26] LABS: CLARITY,URINE CLEAR (CLEAR)
[2019-04-14] MEDS ORDERED: diazePAM 5 MG TABLET PO PRN (17:21)
--- NOTE | 2019-04-14 17:39 | HISTORY & PHYSICAL EXAMINATION ---
Chief Complaint - Chief Complaint Chief Complaint: fever, productive cough, lethargy History of Present Illness - Admitted From Admitted From:: ED - History Obtained From Records Reviewed: yes History obtained from: chart reviewed Exam Limitations: Hearing impairment - History of Present Illness HPI Comment/Other: April Reveles is an 83-year old male with a past medical history of hypertension, hyperlipidemia, irregular heart beats, status post CABG and aortic valve replacement, carotid artery stent then open embolectomy, head and neck cancer, multiple face cancers, recurrent pneumonia, COPD- emphysema type from 30+ years of 2nd hand smoking as he worked in a [employer] for all of his working years, bilateral inguinal hernias with a left hernia repair, depression, hearing impairment, GERD, hypothyroidism, GI ulcer bleeding from the use of NSAIDs, osteoporosis, gout, chronic back pain, and polymyalgia rheumatica. The patient was brought in by EMS being very difficult to wake up this morning with a productive cough, crackles heard while breathing, extreme lethargy and hot and flushed skin according to his [place]. After arriving in the ED the patient was found to be hypoxic with a oxygen saturation of 85% on room air, that improved to the mid-90's after applying 2L nasal cannula. A chest x-ray showed a right low lobe infiltrate. A sputum sample is pending. Labs show an elevated creatinine of 1.4 (baseline creatinine of 1.1), BUN 26, GFR 48, potassium 4.4, sodium 141, INR 1.1, lactic acid normal at 0.7, glucose 101, total bilirubin 1.2, AST 17, ALT 15, protein 6.3, pH in VBG of 7.38. CBC shows a normal WBC count of 8.8, H/H of 12.7/41.2, MCV 99.3 with no other lab abnormalities. Vital signs show a temp of 37.7 C, heart rate 84, respiratory rate of 22, blood pressure 111/56 and 95% oxygen saturation on 2L nasal cannula. Urine test was not indicative for infection. On my exam the patient could speak in a few word sentences, was still wearing oxygen, had a productive cough when asked to take deep breaths, and had coarse crackles with very little air movement in the low lobes. He showed no neurological deficits, was alert and orientated, although hard of hearing, with his , aDly at the bedside. He denied chest pain, nausea, vomiting, diarrhea, constipation, a new rash, new pain, dizziness, bleeding, recent sick contacts, recent illness, or recent falls. He is agreeable to an inpatient stay to treat his right low lobe pneumonia with IV antibiotics and provide him with supplemental oxygen. History - Past Medical History Cardiovascular: reports: Hypertension, High cholesterol, Coronary artery disease , Peripheral Vascular Disease, Murmur, Valve disorder (aortic valve replacement) Respiratory: reports: COPD, Emphysema, Shortness of breath, Sleep apnea Neuro: reports: Peripheral neuropathy Endocrine/Autoimmune: reports: HyPOthyroidism GI: reports: GERD, Ulcers PROCESSING REP: reports: None : reports: Benign prostate hypertrophy, Nocturia HEENT: reports: Chronic vision loss, Chronic sinusitis Psych: reports: Depression Musculoskeletal: reports: Fatigue, Chronic back pain Derm: reports: None, Herpes zoster MRSA Hx?: No - Past Surgical History General: reports: Appendectomy, Other (left inguinal Hernia repair) Cardiovascular: reports: Valve replacement, Vascular surgery (Left open CEA after failed stent placement.) HEENT: reports: Tonsil/Adenoidectomy Derm: reports: Skin cancer surgery - Family & Social History Family History: Mother: , CAD, COPD/Emphysema, Father: , CAD, Cancer, COPD/Emphysema, Other family: , Cancer Family History Comment/Other: The patient worked in a [employer] for all of his working years and is to [place]. They had 3 children, one daughter has . They moved to [facility] from [place] in 1995. They have a son-in-law and a grand daughter who lives nearby. The patient admits to smoking cigarettes from age [age], admits to social/occasional alcohol use, denies alcoholism, denies illicit drug use. He wishes to dye peacefully if his heart stops or he stops breathing. He, confirmed by his wish to be a DNR. Living arrangement: At home Living Situation: With spouse/s.o. - Substance History Use: Uses substance without health or social issues: NONE Abuse: Recurrent use of substance despite neg consequences: NONE Dependence: Experiences withdrawal or developed tolerances: NONE - POLST Patient has POLST: No POLST Status: DNR Meds/Allgy - Home Medications Home Medications: Ambulatory Orders Medication Instructions Recorded Confirmed Cholecalciferol (Vitamin D3) 1,000 units PO DAILY 12/18/16 04/14/19 [Vitamin D3] Clopidogrel Bisulfate [Plavix] 75 mg PO DAILY 12/18/16 04/14/19 Levothyroxine Sodium [Levo-T] 175 mcg PO QDAC 12/18/16 04/14/19 Losartan [Cozaar] 12.5 mg PO DAILY 12/18/16 04/14/19 Aspirin/Caffeine [Back-Body Pain 2 tab PO DAILY PRN 04/14/19 04/14/19 500-32.5MG Cplt] Celecoxib [CeleBREX] 200 mg PO DAILY PRN 04/14/19 04/14/19 PARoxetine HCl [Paroxetine HCl] 20 mg PO DAILY 04/14/19 04/14/19 Prednisone 5 mg PO DAILY 04/14/19 04/14/19 diazePAM [Diazepam] 2.5 mg PO QPM PRN 04/14/19 04/14/19 - Allergies Allergies/Adverse Reactions: Allergies Allergy/AdvReac Type Severity Reaction Status Date / Time Latex, Natural Rubber Allergy respiratory Verified 04/14/19 11:55 distress Review of Systems - Constitutional Constitutional: reports: Fatigue, Fever, Chills, Weakness, Poor appetite, Night sweats - Eyes Eyes: reports: Vision loss - Ears, Nose & Throat Ears, Nose & Throat: reports: Hearing loss, Hearing aids, Postnasal drainage, Sore throat - Cardiovascular Cariovascular: reports: Lightheadedness, Exertional dyspnea, Decr. exercise tolerance, Orthopnea - Respiratory Respiratory: reports: Cough, Sputum production, Wheezing, Orthopnea, SOB at rest, SOB with exertion - Gastrointestinal Gastrointestinal: reports: Reflux/heartburn, Bloating, Poor appetite - Genitourinary Genitourinary: reports: Frequency, Urgency, Nocturia - Musculoskeletal Musculoskeletal: reports: Muscle aches, Limited range of motion, Muscle weakness - Integumentary Integumentary: reports: Dryness, Pigment changes - Neurological Neurological: reports: General weakness, Headache, Dizziness, Memory problems, Pre-existing deficit - Psychiatric Psychiatric: reports: Depression, Anxiety - Hematologic/Lymphatic Hematologic/Lymphatic: reports: Recurrent infections - All Other Systems All Other Systems: reports: Reviewed and negative Prior Level of Functionality: Independent at home, no recent falls Exam - Vital Signs Reviewed Vital Signs: Yes Vital Signs: Vital Signs x48h Temp Pulse Resp BP Pulse Ox 04/14/19 16:11 93 04/14/19 16:00 85 L 04/14/19 15:41 72 18 109/58 L 93 04/14/19 14:30 37 C 68 20 129/70 95 04/14/19 13:58 76 18 118/59 L 94 04/14/19 12:52 37.7 C H 75 20 111/56 L 94 04/14/19 11:52 37.2 C 84 20 119/59 L 77 L - Physical Exam General Appearance: positive: Alert, Mild distress, Anxious Eyes Bilateral: positive: PERRL ENT: positive: Pharynx nml, Oral lesions (creases of mouth redness), Dry mucous membranes Neck: positive: No JVD, Lymphadenopathy (R), Lymphadenopathy (L), Stiff neck Respiratory: positive: Chest non-tender, Wheezes, Rhonchi Cardiovascular: positive: Regular rate & rhythm, No gallop, Systolic murmur, Decreased pulse(s) Peripheral Pulses: positive: 1+ Abdomen: positive: Non-tender, Nml bowel sounds Conclusion/Plan - Problem List (1) Right lower lobe pneumonia Conclusion/Plan: - Chest x-ray showed a right low lobe infiltrate - Increased productive cough, noted to be yellow, green and thick - Sweats and chills at home, documented fever on arrival of 37.7 C - Hypoxic with an oxygen saturation on room air of only 85%, improved to 95% saturation with 2L nasal cannula - Underlying COPD, no maintenance medications at home, no home oxygen - Started on IV azithromycin/Rocephin in the ED - Will continue with Plan: Treat acute illness, IV steroids, hold home steroids, nebulizer treatments, expectorants, supplemental oxygen, anticipate a walking oxygen study to see about home O2 upon discharge (2) Chronic obstructive pulmonary disease with acute lower respiratory infection Conclusion/Plan: - Barrel chest noted on imaging - Tobacco use from age [age] - 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[age], in which he had heavy exposure to 2nd hand smoke (3) Hypertension Conclusion/Plan: - Home medication includes Cozaar - Blood pressure is 139/57, heart rate 71 Plan: continue to monitor blood pressure, resume when appropriate Qualifiers: Hypertension type: essential hypertension Qualified Code(s): I10 - Essential (primary) hypertension (4) Hypothyroid Conclusion/Plan: - Takes thyroid supplement at home - No recent TSH Plan: Continue med, check TSH (5) Depression Conclusion/Plan: - Recent loss of close elderly friend, and eldest daughter just from pancreatitic cancer - Takes Paxil, and diazepam at home, continued here Plan: Continue to monitor Qualifiers: Major depression recurrence: unspecified whether recurrent (6) Polymyalgia rheumatica Conclusion/Plan: - Has been on chronic steroids for the past 2 years for this - Holding Prednisone, starting low dose steroids for tonight for a steroid boost Plan: Continue to treat acute illness (7) GERD (gastroesophageal reflux disease) Conclusion/Plan: - Known history of this, but no home meds (8) Hearing impairment Conclusion/Plan: - Very [place], no hearing aides (9) Hx of coronary artery bypass graft Conclusion/Plan: - Status post ~ 10 years ago including an aortic valve repair Plan: Continue to treat acute illness (10) History of left common carotid artery stent placement Conclusion/Plan: - Has been on Plavix since this surgery greater than 10 years ago Plan: Continue Plavix, start tonight - Lab Results Lab results reviewed: Yes Migue Bones: 04/15/19 14:45 04/15/19 14:45 - Diagnostic Imaging Results Diagnostic Imaging Results: positive: Final report reviewed Diagnostic Imaging Results Comments: EXAM: CHEST RADIOGRAPHY, 2 VIEWS EXAM DATE: 04/14/2019 12:52 PM IMPRESSION: Suboptimal inspiratory effort with patchy area of infiltrate and/or atelectasis right lung base. Core Measures - Anticipated LOS I expect patient to be DC'd or transferred within 96 hours.: Yes - DVT/VTE - Prophylaxis VTE/DVT Device ordered at admit?: Yes VTE/DVT Prophylaxis med ordered at admit?: No Not Ordered - Medical Reason: Contraindicated - Stroke - Rehab Assessment Rehab services assessment to be ordered?: No Not Ordered - Medical Reason: Contraindicated - AMI - Statin at Admit Aspirin Prescribed on Admit: No Not Ordered - Medical Reason: Contraindicated
[2019-04-14] MEDS ORDERED: IPRATROPIUM/ALBUTEROL 3 ML NEB INH PRN (19:04)
[2019-04-14] MEDS: PIPERACILLIN/TAZOBACTAM 3.375 GM in SODIUM CHLORIDE 0.9% MINIBAG 100 ML IV SCH (20:23)
[2019-04-14] MEDS: SODIUM CHLORIDE FLUSH 0.9% 10 ML SYRINGE IVP PRN (20:24)
[2019-04-14] MEDS: CLOPIDOGREL 75 MG TABLET PO SCH (20:27)
[2019-04-14] MEDS ORDERED: HYDROcod/ACETAM 5/325 MG TABLET PO PRN (20:32)
[2019-04-14] MEDS: methylPREDNISolone SUCCINATE 40 MG/ML VIAL IVP SCH (20:58)
[2019-04-15] MEDS ORDERED: SODIUM CHLORIDE 0.9% 500 ML ONE (01:44)
[2019-04-15] MEDS: SODIUM CHLORIDE FLUSH 0.9% 10 ML SYRINGE IVP SCH ×3 (01:49→20:14)
[2019-04-15] MEDS: PIPERACILLIN/TAZOBACTAM 3.375 GM in SODIUM CHLORIDE 0.9% MINIBAG 100 ML IV SCH ×4 (01:52→20:10)
[2019-04-15] MEDS: LEVOTHYROXINE 100 MCG TABLET PO SCH (05:54)
[2019-04-15] MEDS: PANTOPRAZOLE 40 MG TABLET PO SCH (05:55)
[2019-04-15] MEDS: LEVOTHYROXINE 75 MCG TABLET PO SCH (05:55)
[2019-04-15] MEDS: IPRATROPIUM/ALBUTEROL 3 ML NEB INH SCH ×4 (07:45→21:28)
[2019-04-15] MEDS: methylPREDNISolone SUCCINATE 40 MG/ML VIAL IVP SCH (08:00)
[2019-04-15] MEDS: CLOPIDOGREL 75 MG TABLET PO SCH (08:00)
[2019-04-15] MEDS ORDERED: CLOPIDOGREL 75 MG TABLET PO SCH (09:00)
[2019-04-15] MEDS ORDERED: predniSONE 5 MG TABLET PO SCH (09:00)
[2019-04-15] MEDS: POLYETHYLENE GLYCOL 3350 17 GM PACKET PO SCH (10:21)
[2019-04-15 15:08] LABS: BASOPHILS % (AUTO) 0.3 %; EOSINOPHILS # (AUTO) 0.1 10^3/uL (0.0-0.7); EOSINOPHILS % (AUTO) 0.5 %; HGB - HEMOGLOBIN 12.9 g/dL (14.0-18.0); LYMPHOCYTES # (AUTO) 0.4 10^3/uL (1.5-3.5); LYMPHOCYTES % (AUTO) 3.5 %; MEAN CORPUSCULAR HEMOGLOBIN 30.9 pg (27.0-31.0); MEAN CORPUSCULAR HGB CONC 30.6 g/dL (32.0-36.0); MEAN PLATELET VOLUME 11.8 fL (7.4-11.4); MONOCYTES # (AUTO) 0.4 10^3/uL (0.0-1.0); MONOCYTES % (AUTO) 3.8 %; NEUTROPHILS # (AUTO) 9.8 10^3/uL (1.5-6.6); NEUTROPHILS % (AUTO) 91.5 %; PLT - PLATELET COUNT 235 10^3/uL (130-450); RED BLOOD COUNT 4.18 10^6/uL (4.70-6.10); RED CELL DISTRIBUTION WIDTH 14.6 % (12.0-15.0); WHITE BLOOD COUNT 10.7 x10^3/uL (4.8-10.8)
[2019-04-15 15:23] LABS: ALBUMIN 3.5 g/dL (3.2-5.5); ALBUMIN/GLOBULIN RATIO 1.1 (1.0-2.2); BILIRUBIN,TOTAL 0.9 mg/dL (0.2-1.0); CALCIUM 8.7 mg/dL (8.5-10.3); CREATININE 1.4 mg/dL (0.6-1.2); MAGNESIUM 2.5 mg/dL (1.7-2.8); TOTAL PROTEIN 6.7 g/dL (6.7-8.2)
--- NOTE | 2019-04-15 15:27 | PROVIDER PROGRESS NOTE ---
Subjective - Prog Note Date Prog Note Date: 04/15/19 Prog Note Time: 15:27 - Subjective Pt reports feeling: Improved Subjective: April complains of not wanting to stay as medically recommended today. Current Medications - Current Medications Current Medications: Active Medications: Hydrocodone Bitart/Acetaminophen ([place] 5/325) 1 tab PO Q4HR PRN Albuterol/Ipratropium (Duoneb) 3 ml INH Q4HR PRN Albuterol/Ipratropium (Duoneb) 3 ml INH RTQID [facility] Clopidogrel Bisulfate (Plavix) 75 mg PO DAILY [facility]AM Diazepam (Valium) 2.5 mg PO QPM PRN Piperacillin Sod/Tazobactam (Sod 3.375 gm/ Sodium Chloride) 100 mls @ 200 mls/hr IV Q6H [facility] Levothyroxine Sodium (Synthroid) 100 mcg PO QDAC ZAM[facility]AM Levothyroxine Sodium (Synthroid) 75 mcg PO QDAC [facility] Non-Formulary Medication (Cholecalciferol (Vitamin D3) [Vitamin D3]) 1,000 units PO DAILY [facility] Non-Formulary Medication (Losartan [Cozaar]) 12.5 mg PO DAILY [facility] Pantoprazole Sodium (Protonix) 40 mg PO QDAC [facility] Paroxetine HCl (Paxil) 20 mg PO DAILY [facility] Polyethylene Glycol (Miralax) 17 gm PO DAILY [facility] Prednisone (Deltasone) 20 mg PO DAILYWM [facility] HOME meds: Cholecalciferol (Vitamin D3) [Vitamin D3] 1,000 units PO DAILY 12/18/16 Clopidogrel Bisulfate [Plavix] 75 mg PO DAILY 12/18/16 Levothyroxine Sodium [Levo-T] 175 mcg PO QDAC 12/18/16 Losartan [Cozaar] 12.5 mg PO DAILY 12/18/16 Aspirin/Caffeine [Back-Body Pain 500-32.5MG Cplt] 2 tab PO DAILY PRN 04/14/19 Celecoxib [CeleBREX] 200 mg PO DAILY PRN 04/14/19 PARoxetine HCl [Paroxetine HCl] 20 mg PO DAILY 04/14/19 Prednisone 5 mg PO DAILY 04/14/19 diazePAM [Diazepam] 2.5 mg PO QPM PRN 04/14/19 Objective - Vital Signs/Intake & Output Reviewed Vital Signs: Yes Vital Signs: Vital Signs x48h Temp Pulse Pulse Resp BP Pulse Ox 04/15/19 13:20 64 16 04/15/19 08:00 36.4 C L 70 18 120/47 L 96 04/15/19 07:45 61 16 Intake & Output: Intake & Output 04/12/19 04/13/19 04/14/19 04/15/19 23:59 23:59 23:59 23:59 Intake Total 1350 1060 Output Total 200 650 Balance 1150 410 - Objective General Appearance: positive: Alert, Moderate distress, Anxious Eyes Bilateral: positive: PERRL Eyes: OU Conjunctivae pale ENT: positive: Pharynx nml, Dry mucous membranes Neck: positive: Thyroid nml, No JVD, Trachea midline Respiratory: positive: Chest non-tender, Wheezes, Rhonchi Cardiovascular: positive: Regular rate & rhythm, No gallop, Systolic murmur, Decreased pulse(s) Peripheral Pulses: 1+ Radial (R), 1+ Radial (L) Abdomen: positive: Non-tender, Nml bowel sounds Back: positive: Nml inspection Skin: positive: No rash, Warm, Dry, Cyanosis Extremities: positive: Non-tender, Pedal edema, Joint swelling Neurologic/Psychiatric: positive: Oriented x3, CN's nml (2-12), Motor nml, Weakness, Sensory loss, Depressed mood/affect, Other (early dementia) Reflexes: Bicep (R): 3+, Bicep (L): 3+ - Lab Results Fish Bones: 04/15/19 14:45 04/15/19 14:45 Other Labs: Lab Results x24hrs 04/15/19 04/15/19 Range/Units 14:45 14:45 WBC 10.7 (4.8-10.8) x10^3/uL RBC 4.18 L (4.70-6.10) 10^6/uL Hgb 12.9 L (14.0-18.0) g/dL Hct 42.2 (42.0-52.0) % MCV 101.0 H (80.0-94.0) fL MCH 30.9 (27.0-31.0) pg MCHC 30.6 L (32.0-36.0) g/dL RDW 14.6 (12.0-15.0) % Plt Count 235 (130-450) 10^3/uL MPV 11.8 H (7.4-11.4) fL Neut # (Auto) 9.8 H (1.5-6.6) 10^3/uL Lymph # (Auto) 0.4 L (1.5-3.5) 10^3/uL Mellette # (Auto) 0.4 (0.0-1.0) 10^3/uL Eos # (Auto) 0.1 (0.0-0.7) 10^3/uL Baso # (Auto) 0.0 (0.0-0.1) 10^3/uL Absolute Nucleated RBC 0.00 x10^3/uL Nucleated RBC % 0.0 /100WBC Sodium 141 (135-145) mmol/L Potassium 4.4 (3.5-5.0) mmol/L Chloride 101 (101-111) mmol/L Carbon Dioxide 25 (21-32) mmol/L Anion Gap 15.0 H (6-13) BUN 29 H (6-20) mg/dL Creatinine 1.4 H (0.6-1.2) mg/dL Estimated GFR (MDRD) 48 L (>89) Glucose 202 H (70-100) mg/dL Calcium 8.7 (8.5-10.3) mg/dL Magnesium 2.5 (1.7-2.8) mg/dL Total Bilirubin 0.9 (0.2-1.0) mg/dL AST 24 (10-42) IU/L ALT 16 (10-60) IU/L Alkaline Phosphatase 59 (42-121) IU/L Total Protein 6.7 (6.7-8.2) g/dL Albumin 3.5 (3.2-5.5) g/dL Globulin 3.2 (2.1-4.2) g/dL Albumin/Globulin Ratio 1.1 (1.0-2.2) ABX Reporting Has patient been on IV antibiotics over the past 48 hours?: Yes Assessment/Plan - Problem List (1) Right lower lobe pneumonia Impression: - Chest x-ray showed a right low lobe infiltrate - Increased productive cough, noted to be yellow, green and thick - Sweats and chills at home, documented fever on arrival of 37.7 C - Hypoxic with an oxygen saturation on room air of only 85%, improved to 95% saturation with 2L nasal cannula - Underlying COPD, no maintenance medications at home, no home oxygen - Started on IV azithromycin/Rocephin in the ED - Continues on Zosyn - Recommend pulmonary rehab Plan: Treat acute illness, IV steroids, hold home steroids, nebulizer fide atments, expectorants, supplemental oxygen, anticipate a walking oxygen study to see about home O2 upon discharge (2) Chronic obstructive pulmonary disease with acute lower respiratory infection Impression: - Barrel chest noted on imaging - Tobacco use from age [age] - Worked in a [employer] for all of his working years from age [age], in which he had heavy exposure to 2nd hand smoke - Teaching materials regarding specific ongoing home treatments including inhalers, home oxygen and nightly Singular Plan: Continue to monitor, recommend pulmonary rehab upon discharge (3) Hypertension Impression: - Home medication includes Cozaar - Blood pressure is 177/76, heart rate 71 Plan: continue to monitor blood pressure, start home medication tonight Qualifiers: Hypertension type: essential hypertension Qualified Code(s): I10 - Essential (primary) hypertension (4) Hypothyroid Impression: - TSH today was 0.81 (normal) Plan: Continue on home dose of thyroid replacement (5) Depression Impression: - Recent loss of close elderly friend, and eldest daughter just from pancreatitic cancer - Takes Paxil, and diazepam at home, continued here - Tearful today when speaking of recommended stay, and recent losses that he has suffered including a close elderly friend, and his daughter from pancreatic cancer Plan: Continue to monitor Qualifiers: Depression Type: major depressive disorder Major depression recurrence: unspecified whether recurrent Active/Remission status: currently active Major depression episode severity: moderate Qualified Code(s): F32.1 - Major depressive disorder, single episode, moderate (6) Polymyalgia rheumatica Impression: - Has been on chronic steroids for the past 2 years for this - Holding Prednisone, continues on IV form this evening - Reduced IV steroid to just daily today, starting higher dose prednisone in the AM Plan: Continue to treat acute illness (7) Hearing impairment Impression: - Still difficulty with hearing - Exam of internal ear shows likely chronic sinusitis Plan: Start nasal sprays, monitor for improvement, encourage hearing aides in the near future (8) Medical non-compliance Impression: - Patient speaks of "breaking the rules" when attending cardiac rehab after his open heart surgery - Barely agreeable to staying for his full pneumonia treatment, but reluctantly agrees thanks to his Plan: Encourage compliance, continue to treat acute illness
--- NOTE | 2019-04-15 18:03 | ADVANCE CARE PLANNING NOTE ---
Advance Care Planning - Planning Encounter Date: 04/15/19 Time: 10:30 Purpose: Establish end of life goals and strategies to stay out of the hospital Confirm code status Parties in Attendance: The patient- April Reveles, his - Daly, myself- Jdoee FLORINDA Porter Decisional Capacity of the Patient: Patient was starting to grasp the enormity of his COPD, and the likelihood of pneumonia recurrence if he does not take the recommended precautionary measures to prevent illness including home oxygen, daily LAMA, LABA, and nightly singular. - Diagnosis for Encounter (1) Right lower lobe pneumonia Qualifiers: Pneumonia type: aspiration pneumonia Summary: - Chest x-ray showed a right low lobe infiltrate - Increased productive cough, noted to be yellow, green and thick - Sweats and chills at home, documented fever on arrival of 37.7 C - Hypoxic with an oxygen saturation on room air of only 85%, improved to 95% saturation with 2L nasal cannula - Underlying COPD, no maintenance medications at home, no home oxygen - Started on IV azithromycin/Rocephin in the ED - Continues on Zosyn - Recommend pulmonary rehab Plan: Treat acute illness, IV steroids, hold home steroids, nebulizer treatments, expectorants, supplemental oxygen, anticipate a walking oxygen study to see about home O2 upon discharge (2) Chronic obstructive pulmonary disease with acute lower respiratory infection Summary: - Barrel chest noted on imaging - Tobacco use from age [age] - Worked in a [employer] for all of his working years from age [age], in which he had heavy exposure to 2nd hand smoke - Teaching materials regarding specific ongoing home treatments including inhalers, home oxygen and nightly Singular Plan: Continue to monitor, recommend pulmonary rehab upon discharge (3) Depression Qualifiers: Depression Type: major depressive disorder Major depression recurrence: unspecified whether recurrent Active/Remission status: currently active Major depression episode severity: moderate Qualified Code(s): F32.1 - Major depressive disorder, single episode, moderate Summary: - Recent loss of close elderly friend, and eldest daughter just from pancreatitic cancer - Takes Paxil, and diazepam at home, continued here - Tearful today when speaking of recommended stay, and recent losses that he has suffered including a close elderly friend, and his daughter from pancreatic cancer Plan: Continue to monitor - Encounter Subjective/Patient's Story: The patient states if he today, he has lived a good life. His spoke of how her has been gravely depressed since loosing his good friend/neighbor about 6 months ago. The friend had advanced cancer, called the patient the night before his and was allowed to through a " with dignity" program. The patient stated that he took a pill, and by the next morning he was . The next loss was around the same time frame which was their eldest daughter who quickly of pancreatic cancer. The patient's explained that her missed the time frame of visiting and missed her de ath which occurred in [place]. The patient has felt much guilt from these 2 losses, and really feels hopeless lately which has been affecting his everyday happiness. The patient has a long list of chronic illnesses, and feels that he used to be an avid runner, which makes him believe that he does not have such bad lungs. He also notes that he never has to even breath out of his nose and his only symptom is recent BLE leg soreness and slight tremors in his hands. He mostly did not want to stay one more night in the hospital, but this topic brought about goals of care and accepting medical recommendations of staying for the treatment of this illness AND taking the recommended inhalers on a daily basis/home oxygen if needed. He stated, "I am not going to be one of those old guys that are dependent on oxygen". He reminds us that his mind is still young despite his body becoming worn out. Hospice was brought up, but not officially decided on today. Palliative care is not available until some time in April. He wishes to leave his code status the same and continue treatment of this acute illness. He and his are agreeable to formalizing his wishes byway of a POLST which we will attempt to complete prior to his discharge. Objective/Medical Story: April Reveles is an 83-year old male with a past medical history of hypertension, hyperlipidemia, irregular heart beats, status post CABG and aortic valve replacement, carotid artery stent then open embolectomy, head and neck cancer, multiple face cancers, recurrent pneumonia, COPD- emphysema type from 30+ years of 2nd hand smoking as he worked in a [employer] for all of his working years, bilateral inguinal hernias with a left hernia repair, depression, hearing impairment, GERD, hypothyroidism, GI ulcer bleeding from the use of NSAIDs, osteoporosis, gout, chronic back pain, and polymyalgia rheumatica. The patient was brought in by EMS being very difficult to wake up this morning with a productive cough, crackles heard while breathing, extreme lethargy and hot and flushed skin according to his Daly. After arriving in the ED the patient was found to be hypoxic with a oxygen saturation of 85% on room air, that improved to the mid-90's after applying 2L nasal cannula. A chest x-ray showed a right low lobe infiltrate. A sputum sample is pending. Labs show an elevated creatinine of 1.4 (baseline creatinine of 1.1), BUN 26, GFR 48, potassium 4.4, sodium 141, INR 1.1, lactic acid normal at 0.7, glucose 101, total bilirubin 1.2, AST 17, ALT 15, protein 6.3, pH in VBG of 7.38. CBC shows a normal WBC count of 8.8, H/H of 12.7/41.2, MCV 99.3 with no other lab abnormalities. Vital signs show a temp of 37.7 C, heart rate 84, respiratory rate of 22, blood pressure 111/56 and 95% oxygen saturation on 2L nasal cannula. Urine test was not indicative for infection. On my exam the patient could speak in a few word sentences, was still wearing oxygen, had a productive cough when asked to take deep breaths, and had coarse crackles with very little air movement in the low lobes. He showed no neurological deficits, was alert and orientated, although hard of hearing, with his , Daly at the bedside. He denied chest pain, nausea, vomiting, diarrhea, constipation, a new rash, new pain, dizziness, bleeding, recent sick contacts, recent illness, or recent falls. He is agr eeable to an inpatient stay to treat his right low lobe pneumonia with IV antibiotics and provide him with supplemental oxygen. *This discussion was brought about due to the patient threatening to leave AMA, which he later agreed to staying for the recommended medical treatment. A call to case management was made with a question of medicare refusal of paying if the patient does leave AMA? This may be a [id number] basis, so this could be the result, although it would be reviewed. The cost issue may have been the main culprit of persuading the patient in staying one more night. Goals of Care: Treat acute illness Walking oxygen testing upon discharge Chronic inhalers Pulmonary rehab upon discharge Preserve mental wellness Plan: IV steroids, IV antibiotics, and oxygen, await respiratory culture. Code Status: Do Not Attempt Resuscitation Time spent on advance care plannin
[2019-04-16] MEDS: PIPERACILLIN/TAZOBACTAM 3.375 GM in SODIUM CHLORIDE 0.9% MINIBAG 100 ML IV SCH ×2 (01:38→07:51)
[2019-04-16] MEDS: SODIUM CHLORIDE FLUSH 0.9% 10 ML SYRINGE IVP SCH ×2 (01:38→08:20)
[2019-04-16] MEDS: SODIUM CHLORIDE FLUSH 0.9% 10 ML SYRINGE IVP PRN (02:33)
[2019-04-16] MEDS: LEVOTHYROXINE 100 MCG TABLET PO SCH (06:36)
[2019-04-16] MEDS: LEVOTHYROXINE 75 MCG TABLET PO SCH (06:36)
[2019-04-16] MEDS: PANTOPRAZOLE 40 MG TABLET PO SCH (06:36)
[2019-04-16] MEDS: CLOPIDOGREL 75 MG TABLET PO SCH (07:51)
[2019-04-16] MEDS: IPRATROPIUM/ALBUTEROL 3 ML NEB INH SCH (07:52)
[2019-04-16] MEDS ORDERED: predniSONE 20 MG TABLET PO SCH (08:00)
[2019-04-16] MEDS: POLYETHYLENE GLYCOL 3350 17 GM PACKET PO SCH (08:20)
--- NOTE | 2019-04-16 08:38 | Discharge Plan ---
Discharge Plan Problem Reviewed?: Yes Disposition: Home, Self Care Condition: Good Prescriptions: Amox/Clav 875/125 [Augmentin] 1 each PO Q12H #10 tablet Azithromycin 250 mg PO DAILY 5 Days #6 tab Fluticasone [Flonase] 2 sprays AMY DAILY #2 bottle Fluticasone/Salmeterol [Advair 250-50 Diskus] 1 each IH BID #1 blst.w.dev Montelukast [Singulair] 10 mg PO QPM #30 tablet Prednisone 10 mg PO DAILY #3 tab.ds.pk Saccharomyces Boulardii [Florastor] 250 mg PO BID #60 capsule Tiotropium [place] [Spiriva] 1 puffs INH DAILY 30 Days #30 each Diet: Regular Activity Restrictions: Activity as Tolerated Shower Restrictions: No Instruction Topics: Fluticasone nasal spray, Montelukast oral tablets, Saccharomyces boulardii Florastor oral dosage forms, Tiotropium respiratory in halation spray Spiriva Respimat, Azithromycin tablets, Amoxicillin Clavulanic Acid tablets, Fluticasone Salmeterol inhalation aerosol, Prednisone tablets, COPD, Chronic Lung Disease Exercise Plan, Chronic Lung Disease [employer] [facility] Concerns: Pneumonia COPD Home oxygen Plan of Treatment: Continue on a steroid taper, oral antibiotics and a probiotic. Continue on COPD maintenance inhaler to prevent illness. Consider Pulmonary rehabilitation to learn more about COPD and to ensure proper management. Care Goals: Prevent hospital stays/ED visits Improve overall wellness Maintain independence Assessment: You were admitted and treated for pneumonia using IV antibiotics, that are transitioned to a pill x5 more days. Your home steroid dose was put on hold, and you were given IV steroids that were changed to pill form to continue at home. You underwent a home oxygen study which you passed. I have made a referral to pulmonary rehab to prevent hospital stays and overall wellness with COPD. Please see your primary care provider in the next week. Follow-Up Care: [facility] No Smoking: If you smoke, Please STOP! Call for help. Follow-up with: Williams Courtney MD [Primary Care Provider] -
[2019-04-16] MEDS ORDERED: LOSARTAN 50 MG TABLET PO SCH (09:00)
[2019-04-16] MEDS ORDERED: LOSARTAN 12.5 MG PO SCH (09:00)
[2019-04-16] MEDS ORDERED: PARoxetine 10 MG TABLET PO SCH (09:00)
[2019-04-16] MEDS ORDERED: CHOLECALCIFEROL 1,000 UNIT TABLET PO SCH (09:00)
--- NOTE | 2019-04-16 09:18 | DISCHARGE SUMMARY ---
Discharge Summary Admit Date: 04/14/19 Discharge Date: 04/16/19 Discharging Provider: FLORINDA Carvajal Primary Care Provider: Williams Courtney Code Status: Do Not Attempt Resuscitation Condition at Discharge: Good Discharge Disposition: 01 Home, Self Care - DIAGNOSES Admission Diagnoses: Right lower lobe pneumonia COPD with acute lower respiratory infection Hypertension Hypothyroid Depression Polymyalgia rheumatica GERD (gastroesophageal reflux disease) Hearing impairment History of coronary artery bypass graft History of left common carotid artery stent placement Discharge Diagnoses with Status of Each Condition: Right lower lobe pneumonia- new on this admission, stable, no home oxygen needed, continue with home antibiotics x5 days COPD with acute lower respiratory infection- started on exterminator helper inhalers, nightly Singular, and a referral to pulmonary rehab Hypertension- chronic, stable Hypothyroid- chronic, stable Major depressive disorder- chronic, stable Polymyalgia rheumatica- chronic, stable Hearing impairment- chronic, stable Medical non-compliance- improved after his hospital stay, encouraged to attend at least a few sessions of pulmonary rehab to bring value to each day of his life Sinusitis- chronic, stable, started on daily Flonase spray - HPI History of Present Illness: April Reveles is an 83-year old male with a past medical history of hypertension, hyperlipidemia, irregular heart beats, status post CABG and aortic valve replacement, carotid artery stent then open embolectomy, head and neck cancer, multiple face cancers, recurrent pneumonia, COPD- emphysema type from 30+ years of 2nd hand smoking as he worked in a [employer] for all of his working years, bilateral inguinal hernias with a left hernia repair, depression, hearing impairment, GERD, hypothyroidism, GI ulcer bleeding from the use of NSAIDs, osteoporosis, gout, chronic back pain, and polymyalgia rheumatica. The patient was brought in by EMS being very difficult to wake up this morning with a productive cough, crackles heard while breathing, extreme lethargy and hot and flushed skin according to his Daly. After arriving in the ED the patient was found to be hypoxic with a oxygen saturation of 85% on room air, that improved to the mid-90's after applying 2L nasal cannula. A chest x-ray showed a right low lobe infiltrate. A sputum sample is pending. Labs show an elevated creatinine of 1.4 (baseline creatinine of 1.1), BUN 26, GFR 48, potassium 4.4, sodium 141, INR 1.1, lactic acid normal at 0.7, glucose 101, total bilirubin 1.2, AST 17, ALT 15, protein 6.3, pH in VBG of 7.38. CBC shows a normal WBC count of 8.8, H/H of 12.7/41.2, MCV 99.3 with no other lab abnormalities. Vital signs show a temp of 37.7 C, heart rate 84, respiratory rate of 22, blood pressure 111/56 and 95% oxygen saturation on 2L nasal cannula. Urine test was not indicative for infection. On my exam the patient could speak in a few word sentences, was still wearing oxygen, had a productive cough when asked to take deep breaths, and had coarse crackles with very little air movement in the low lobes. He showed no neurological deficits, was alert and orientated, although hard of hearing, with his , Daly at the bedside. He denied chest pain, nausea, vomiting, diarrhea, constipation, a new rash, new pain, dizziness, bleeding, recent sick contacts, recent illness, or recent falls. He is agreeable to an inpatient stay to treat his right low lobe pneumonia with IV antibiotics and provide him with supplemental oxygen. - ALLERGIES Allergies/Adverse Reactions: Allergies Allergy/AdvReac Type Severity Reaction Status Date / Time Latex, Natural Rubber Allergy respiratory Verified 04/14/19 11:55 distress - MEDICATIONS Home Medications: Ambulatory Orders Medication Instructions Recorded Confirmed Cholecalciferol (Vitamin D3) 1,000 units PO DAILY 12/18/16 04/14/19 [Vitamin D3] Clopidogrel Bisulfate [Plavix] 75 mg PO DAILY 12/18/16 04/14/19 Levothyroxine Sodium [Levo-T] 175 mcg PO QDAC 12/18/16 04/14/19 Losartan [Cozaar] 12.5 mg PO DAILY 12/18/16 04/14/19 Aspirin/Caffeine [Back-Body Pain 2 tab PO DAILY PRN 04/14/19 04/14/19 500-32.5MG Cplt] Celecoxib [CeleBREX] 200 mg PO DAILY PRN 04/14/19 04/14/19 PARoxetine HCl [Paroxetine HCl] 20 mg PO DAILY 04/14/19 04/14/19 Prednisone 5 mg PO DAILY 04/14/19 04/14/19 diazePAM [Diazepam] 2.5 mg PO QPM PRN 04/14/19 04/14/19 Amox/Clav 875/125 [Augmentin] 1 each PO Q12H #10 tablet 04/16/19 Azithromycin 250 mg PO DAILY 5 Days #6 tab 04/16/19 Fluticasone [Flonase] 2 sprays AMY DAILY #2 bottle 04/16/19 Fluticasone/Salmeterol [Advair 1 each IH BID #1 blst.w.dev 04/16/19 250-50 Diskus] Montelukast [Singulair] 10 mg PO QPM #30 tablet 04/16/19 Prednisone 10 mg PO DAILY #3 tab.ds.pk 04/16/19 Saccharomyces Boulardii [Florastor] 250 mg PO BID #60 capsule 04/16/19 Tiotropium [place] [Spiriva] 1 puffs INH DAILY 30 Days #30 each 04/16/19 - PHYSICAL EXAM AT DISCHARGE General Appearance: positive: No acute distress, Alert Eyes Bilateral: positive: PERRL ENT: positive: Pharynx nml, No signs of dehydration, Other (HUSLIA) Neck: positive: Thyroid nml, No JVD, Trachea midline Respiratory: positive: Chest non-tender, No respiratory distress, Other (diminished) Cardiovascular: positive: Regular rate & rhythm, No gallop, Systolic murmur, Decreased pulse(s) Peripheral Pulses: positive: 1+ Abdomen: positive: Non-tender, No organomegaly, Nml bowel sounds, No distention Back: positive: Nml inspection Skin: positive: Color nml, No rash, Warm, Dry Extremities: positive: Non-tender, Full ROM, Nml appearance, Pedal edema (trace- dependent) Neurologic/Psychiatric: positive: Oriented x3, CN's nml (2-12), Motor nml, Sensation nml, Mood/affect nml Reflexes: Bicep (R): 3+, Bicep (L): 3+ - LABS Result Diagrams: 04/15/19 14:45 04/15/19 14:45 - DIAGNOSTIC IMAGING Diagnostic Imaging Results: Final report reviewed Diagnostic Imaging Results Comments: EXAM: CHEST RADIOGRAPHY, 2 VIEWS EXAM DATE: 04/14/2019 12:52 PM IMPRESSION: Suboptimal inspiratory effort with patchy area of infiltrate and/or atelectasis right lung base. - FOLLOW UP Follow Up: Disposition: Home, Self Care ([facility] rehab- [facility]) Condition: Good Prescriptions: Amox/Clav 875/125 [Augmentin] 1 each PO Q12H #10 tablet Azithromycin 250 mg PO DAILY 5 Days #6 tab Fluticasone [Flonase] 2 sprays AMY DAILY #2 bottle Fluticasone/Salmeterol [Advair 250-50 Diskus] 1 each IH BID #1 blst.w.dev Montelukast [Singulair] 10 mg PO QPM #30 tablet Prednisone 10 mg PO DAILY #3 tab.ds.pk Saccharomyces Boulardii [Florastor] 250 mg PO BID #60 capsule Tiotropium [place] [Spiriva] 1 puffs INH DAILY 30 Days #30 each Health Concerns: Pneumonia, COPD, Home oxygen Plan of Treatment: Continue on a steroid taper, oral antibiotics and a probiotic., Continue on COPD maintenance inhaler to prevent illness. Consider Pulmonary rehabilitation to learn more about COPD and to ensure proper management. Care Goals: Prevent hospital stays/ED visits, Improve overall wellness, Maintain independence Assessment: You were admitted and treated for pneumonia using IV antibiotics, that are transitioned to a pill x5 more days. Your home steroid dose was put on hold, and you were given IV steroids that were changed to pill form to continue at home. You underwent a home oxygen study which you passed. I have made a referral to pulmonary rehab to prevent hospital stays and overall wellness with COPD. Please see your primary care provider in the next week. - TIME SPENT Time Spent in Discharge (Minutes): 55
[2019-04-16 12:46] VITALS: BP 178/84
== END 2019-04-16 11:45 | disposition home or self-care (01) | DRG 194 ==
LOC: EDUNIT# → ED 11:42 → MS2 17:18
PROVIDERS: ADMIT Nurse Practitioner; ATTEND Nurse Practitioner
DX: J18.9 Pneumonia, unspecified organism (principal); J18.1 Lobar pneumonia, unspecified organism; F32.1 Major depressive disorder, single episode, moderate; J43.9 Emphysema, unspecified; E03.9 Hypothyroidism, unspecified; I10 Essential (primary) hypertension; I25.10 Atherosclerotic heart disease of native coronary artery without angina pectoris; E78.5 Hyperlipidemia, unspecified; I73.9 Peripheral vascular disease, unspecified; G47.30 Sleep apnea, unspecified; M35.3 Polymyalgia rheumatica; K21.9 Gastro-esophageal reflux disease without esophagitis; J32.9 Chronic sinusitis, unspecified; H91.90 Unspecified hearing loss, unspecified ear; Z77.22 Contact with and (suspected) exposure to environmental tobacco smoke (acute) (chronic); M81.0 Age-related osteoporosis without current pathological fracture; M10.9 Gout, unspecified; G89.29 Other chronic pain; M54.9 Dorsalgia, unspecified; F41.9 Anxiety disorder, unspecified; G62.9 Polyneuropathy, unspecified; N40.1 Benign prostatic hyperplasia with lower urinary tract symptoms; R35.1 Nocturia; R35.0 Frequency of micturition; R39.15 Urgency of urination; H54.7 Unspecified visual loss; R53.83 Other fatigue; Z91.19 Patient's noncompliance with other medical treatment and regimen; Z99.81 Dependence on supplemental oxygen; Z79.02 Long term (current) use of antithrombotics/antiplatelets; Z66 Do not resuscitate; Z79.82 Long term (current) use of aspirin; Z79.52 Long term (current) use of systemic steroids; Z87.01 Personal history of pneumonia (recurrent); Z95.2 Presence of prosthetic heart valve; Z95.1 Presence of aortocoronary bypass graft; Z95.828 Presence of other vascular implants and grafts; Z85.828 Personal history of other malignant neoplasm of skin; Z87.11 Personal history of peptic ulcer disease; Z86.19 Personal history of other infectious and parasitic diseases; Z87.891 Personal history of nicotine dependence
CPT/HCPCS: 36415; 71046; 80053; 81003; 82803; 83605; 83690; 83735; 84443; 85025; 85610; 85730; 87040; 87070; 87181; 87205; 94640; 94761; 96361; 96365; 96375; 99284; 99285; A9270; J7512; 81001; 87086

== ENCOUNTER 2019-04-25 13:38 | Outpatient (CLI) | payer MEDICARE, OTHER ==
--- NOTE | 2019-04-26 12:01 | CT Report ---
Reason: L SIDED PAIN IN PT WITH L IHR AND PRONE TO HEMATUR Procedure Date: 04/25/2019 Accession Number: [id number] / [id number] Procedure: CT - PELVIS WO CPT Code: FULL RESULT: EXAM: CT BONY PELVIS WITHOUT CONTRAST EXAM DATE: 04/25/2019 02:22 PM. CLINICAL HISTORY: Left-sided pelvic pain. COMPARISON: None. TECHNIQUE: Thin-section axial images were acquired of the pelvis without contrast. Post-processing: Coronal and sagittal reformats. Other: None. In accordance with CT protocol optimization, one or more of the following dose reduction techniques were utilized for this exam: automated exposure control, adjustment of mA and/or KV based on patient size, or use of iterative reconstructive technique. FINDINGS: Bones: The bones are osteopenic. No acute fracture or bone lesions. Visualized lower lumbar spine: Degenerative changes and levoconvex scoliosis. Sacroiliac Joints: Mild degenerative changes. Symphysis Pubis: Mild to moderate degenerative changes. Right Hip: Mild to moderate osteoarthritis. Left Hip: Mild to moderate osteoarthritis. Musculature: There is asymmetric enlargement of the left gluteus medius muscle. There is slight asymmetric enlargement of the left psoas, piriformis, and iliacus muscles. Pelvic Cavity: There is severe sigmoid colon diverticulosis. Calcified plaques within the abdominal aorta and iliac arteries. No free fluid or lymphadenopathy. There is a small, approximately 1.8 x 0.6 x 1 cm focus of gas inferolateral to the left SI joint and superomedial to the left sciatic notch. Other: No lymphadenopathy. The other visualized soft tissues are unremarkable. IMPRESSION: 1. Osteopenia. No acute fracture or bone lesion. 2. Degenerative changes and levoconvex scoliosis at the visualized lower lumbar spine. 3. Mild degenerative changes at the sacroiliac joints and mild to moderate degenerative changes at the pubic symphysis. 4. Mild to moderate lateral hip osteoarthritis. 5. Asymmetric enlargement of the left gluteus medius, psoas, piriformis, and iliacus muscles which may represent strain or contusion. If warranted, further evaluation with MR imaging without and with intravenous contrast is suggested. 6. A small 1.8 x 0.6 x 1 cm focus of gas inferolateral to the left SI joint and superomedial to the left sciatic notch. There is a trace amount of gas within the sacroiliac joints which probably represents a vacuum phenomenon. Therefore, the gas adjacent to the inferolateral aspect of the left SI joint may be associated with the vacuum phenomenon at the left SI joint. Infection is thought to be less likely. RADIA
== END 2019-04-25 13:39 | disposition home or self-care (01) ==
LOC: DI 13:38
PROVIDERS: ATTEND Surgery
DX: K40.90 Unilateral inguinal hernia, without obstruction or gangrene, not specified as recurrent (principal); R10.9 Unspecified abdominal pain; M16.0 Bilateral primary osteoarthritis of hip; M47.816 Spondylosis without myelopathy or radiculopathy, lumbar region; M41.86 Other forms of scoliosis, lumbar region; M85.89 Other specified disorders of bone density and structure, multiple sites
CPT/HCPCS: 72192

== ENCOUNTER 2019-05-03 09:16 | Outpatient (CLI) | payer MEDICARE, OTHER | END 2019-05-03 09:17 | disposition EMS.NT | LOC: EMS 09:16 | PROVIDERS: ATTEND Surgery | DX: R53.1 Weakness (principal); S09.90XA Unspecified injury of head, initial encounter; Z79.01 Long term (current) use of anticoagulants; W18.30XA Fall on same level, unspecified, initial encounter ==

== ENCOUNTER 2019-05-03 17:33 | Outpatient (CLI) | payer MEDICARE, OTHER | END 2019-05-03 17:34 | disposition critical access hospital (66) | LOC: EMS 17:33 | PROVIDERS: ATTEND Surgery | DX: R53.1 Weakness (principal); R53.83 Other fatigue; R05 Cough; R50.9 Fever, unspecified | CPT/HCPCS: A0425; A0427 ==

== ENCOUNTER 2019-05-03 18:05 | Inpatient (IN) | payer MEDICARE, OTHER ==
[2019-05-03] MEDS ORDERED: SODIUM CHLORIDE 0.9% 1,000 ML IV ONE (18:31)
[2019-05-03] MEDS ORDERED: IPRATROPIUM/ALBUTEROL 3 ML NEB INH STA ×2 (18:34→18:42)
--- NOTE | 2019-05-03 18:34 | ED Physician Documentation ---
History of Present Illness - Stated complaint Stated Complaint: WEAK - Chief complaint Chief Complaint: Resp - History obtained from History obtained from: Patient, Family, EMS - History of Present Illness Timing: Today Pain level max: 0 Pain level now: 0 - Additonal information Additional information: Patient fell last night, struck his head. Patient is on Plavix. He is a DNR. He fell again today and gradually became more weak throughout the day. Had a fever with EMS. Brought in for further evaluation. He is also noted to be hypoxic, 70% on room air when picked up by EMS. Review of Systems Unable to obtain: Confused Constitutional: reports: Fever Neurologic: reports: Confused, Head injury PD PAST MEDICAL HISTORY - Past Medical History Past Medical History: Yes Cardiovascular: Hypertension, High cholesterol, Coronary artery disease, Peripheral Vascular Disease, Murmur, Valve disorder (aortic valve replacement) Respiratory: COPD, Emphysema, Shortness of breath, Sleep apnea Neuro: Peripheral neuropathy Endocrine/Autoimmune: HyPOthyroidism GI: GERD, Ulcers COLLATERAL SPECIALIST: None : Benign prostate hypertrophy, Nocturia HEENT: Chronic vision loss, Chronic sinusitis Psych: Depression Musculoskeletal: Fatigue, Chronic back pain Derm: None, Herpes zoster - Past Surgical History Past Surgical History: Yes General: Appendectomy, Other (left inguinal Hernia repair) Cardiovascular: Valve replacement, Vascular surgery (Left open CEA after failed stent placement.) HEENT: Tonsil/Adenoidectomy Derm: Skin cancer surgery - Present Medications Home Medications: Ambulatory Orders Medication Instructions Recorded Confirmed Cholecalciferol (Vitamin D3) 1,000 units PO DAILY 12/18/16 04/14/19 [Vitamin D3] Clopidogrel Bisulfate [Plavix] 75 mg PO DAILY 12/18/16 04/14/19 Levothyroxine Sodium [Levo-T] 175 mcg PO QDAC 12/18/16 04/14/19 Losartan [Cozaar] 12.5 mg PO DAILY 12/18/16 04/14/19 Aspirin/Caffeine [Back-Body Pain 2 tab PO DAILY PRN 04/14/19 04/14/19 500-32.5MG Cplt] Celecoxib [CeleBREX] 200 mg PO DAILY PRN 04/14/19 04/14/19 PARoxetine HCl [Paroxetine HCl] 20 mg PO DAILY 04/14/19 04/14/19 Prednisone 5 mg PO DAILY 04/14/19 04/14/19 diazePAM [Diazepam] 2.5 mg PO QPM PRN 04/14/19 04/14/19 Amox/Clav 875/125 [Augmentin] 1 each PO Q12H #10 tablet 04/16/19 Azithromycin 250 mg PO DAILY 5 Days #6 tab 04/16/19 Fluticasone [Flonase] 2 sprays AMY DAILY #2 bottle 04/16/19 Fluticasone/Salmeterol [Advair 1 each IH BID #1 blst.w.dev 04/16/19 250-50 Diskus] Montelukast [Singulair] 10 mg PO QPM #30 tablet 04/16/19 Prednisone 10 mg PO DAILY #3 tab.ds.pk 04/16/19 Saccharomyces Boulardii [Florastor] 250 mg PO BID #60 capsule 04/16/19 Tiotropium [place] [Spiriva] 1 puffs INH DAILY 30 Days #30 each 04/16/19 - Allergies Allergies/Adverse Reactions: Allergies Allergy/AdvReac Type Severity Reaction Status Date / Time Latex, Natural Rubber Allergy respiratory Verified 04/14/19 11:55 distress - Social History Does the pt smoke?: No Smoking Status: Former smoker (quit at 31 years of age.) Does the pt drink ETOH?: Yes Does the pt have substance abuse?: No - Immunizations Immunizations are current?: Yes - POLST Patient has POLST: No POLST Status: DNR PD ED PE NORMAL - Vitals Vital signs reviewed: Yes - General General: No acute distress, Well developed/nourished, Other (drowsy, pleasant) - HEENT HEENT: PERRL, EOMI, Ears normal, Moist mucous membranes, Pharynx benign, Other (Periorbital ecchymosis left eye) - Neck Neck: Supple, no meningeal sign - Cardiac Cardiac: RRR - Respiratory Respiratory: No respiratory distress, Clear bilaterally - Abdomen Abdomen: Soft, Non tender, Non distended - Back Back: No CVA TTP, No spinal TTP - Derm Derm: Warm and dry, No rash - Extremities Extremities: Other (1+ edema bilateral lower extremity) - Neuro Neuro: No motor deficit, No sensory deficit Eye Opening: Spontaneous Motor: Obeys Commands Verbal: Confused GCS Score: 14 Results - Vitals Vitals: Vital Signs - 24 hr 05/03/19 05/03/19 05/03/19 18:14 18:23 19:17 Temperature 100.2 C H Heart Rate 83 77 79 Respiratory 18 21 18 Rate Blood Pressure 132/60 H 135/64 H O2 Saturation 77 L 91 L 05/03/19 05/03/19 05/03/19 19:41 20:12 20:48 Temperature Heart Rate 77 74 77 Respiratory 18 18 16 Rate Blood Pressure 138/68 H 102/49 L 105/53 L O2 Saturation 91 L 96 96 Oxygen O2 Source Room air - Labs Labs: Laboratory Tests 05/03/19 05/03/19 05/03/19 18:35 18:35 19:27 WBC 7.2 RBC 3.87 L Hgb 12.0 L Hct 39.2 L MCV 101.3 H MCH 31.0 MCHC 30.6 L RDW 14.6 Plt Count 226 MPV 11.5 H Neut # (Auto) Not Reportable Lymph # (Auto) Not Reportable [place] # (Auto) Not Reportable Eos # (Auto) Not Reportable Baso # (Auto) Not Reportable Absolute Nucleated RBC Not Reportable Total Counted 100 Band Neuts % (Manual) 22 H Reactive Lymphs % (Man) 1 Abnorm Lymph % (Manual) 0 Nucleated RBC % Not Reportable Neutrophils # (Manual) 6.8 H Lymphocytes # (Manual) 0.3 L Monocytes # (Manual) 0.1 Eosinophils # (Manual) 0.0 Basophils # (Manual) 0.0 Differential Comment MANUAL DIFFERENTIAL Platelet Estimate NORMAL (130-450,000) Platelet Morphology NORMAL APPEARANCE RBC Morph Micro Appear NORMAL APPEARANCE PT INR APTT Sodium 138 Potassium 4.4 Chloride 102 Carbon Dioxide 25 Anion Gap 11.0 BUN 32 H Creatinine 1.7 H Estimated GFR (MDRD) 39 L Glucose 146 H Lactic Acid 0.9 Calcium 8.6 Total Bilirubin 1.0 AST 19 ALT 14 Alkaline Phosphatase 49 Total Protein 5.6 L Albumin 3.3 Globulin 2.3 Albumin/Globulin Ratio 1.4 Lipase 19 L 05/03/19 19:27 WBC RBC Hgb Hct MCV MCH MCHC RDW Plt Count MPV Neut # (Auto) Lymph # (Auto) [place] # (Auto) Eos # (Auto) Baso # (Auto) Absolute Nucleated RBC Total Counted Band Neuts % (Manual) Reactive Lymphs % (Man) Abnorm Lymph % (Manual) Nucleated RBC % Neutrophils # (Manual) Lymphocytes # (Manual) Monocytes # (Manual) Eosinophils # (Manual) Basophils # (Manual) Differential Comment Platelet Estimate Platelet Morphology RBC Morph Micro Appear PT 12.7 H INR 1.1 APTT 25.5 Sodium Potassium Chloride Carbon Dioxide Anion Gap BUN Creatinine Estimated GFR (MDRD) Glucose Lactic Acid Calcium Total Bilirubin AST ALT Alkaline Phosphatase Total Protein Albumin Globulin Albumin/Globulin Ratio Lipase - Rads (name of study) Head CT Radiology: Prelim report reviewed, EMP read contemporaneously, See rad report (No definite acute intracranial pathology seen; specifically, no acute infarct, acute intracranial hemorrhage, mass, hydrocephalus, or midline shift. If there is clinical concern for intracranial pathology or symptoms persist an MR brain could be considered to evaluate small or subtle pathology. 2. No definite calvarial fracture. ) Maxillofacial CT Radiology: Prelim report reviewed, EMP read contemporaneously, See rad report (No definite orbital facial bone fracture seen. ) Cervical spine CT Radiology: Prelim report reviewed, EMP read contemporaneously, See rad report (No evidence of cervical spine fracture or dislocation. ) Chest CT Radiology: Prelim report reviewed, EMP read contemporaneously, See rad report (1. No evidence of acute pulmonary embolism. 2. There is right upper lobe infiltrate which is suspicious for pneumonia. 3. There is some patchy peribronchovascular consolidation within the right lower lobe which may also be secondary to infection. 4. There is scattered endobronchial opacification and volume loss within the left lung base which is suggestive of atelectasis. 5. There is biapical scarring. 6. There is no evidence of aortic dissection or aneurysm. ) PD MEDICAL DECISION MAKING - ED course Complexity details: reviewed old records, reviewed results, re-evaluated patient, considered differential, d/w patient, d/w family, d/w strategic sourcing consultant ED course: 83-year-old male with what appears to be bilateral pneumonia. Given nebulizer treatments and O2 saturation did improve. He is significantly hypoxic. Has significant pneumonia on CT scan of the chest. Recently was on azithromycin and recently was admitted to the hospital. Therefore will treat with Levaquin. Blood cultures drawn. Discussed the case with Dr. Dean, hospitalist who accepts This document was made in part using voice recognition software. While efforts are made to proofread this document, sound alike and grammatical errors may occur. Departure - Departure Disposition: 66 [facility] DC/Xfer Clinical Impression: Hypoxia Pneumonia Qualifiers: Pneumonia type: due to unspecified organism Laterality: unspecified laterality Lung location: unspecified part of lung Qualified Code(s): J18.9 - Pneumonia, unspecified organism Condition: Serious
[2019-05-03 18:46] LABS: BASOPHILS % (AUTO) 0.1 %; LYMPHOCYTES % (AUTO) 1.8 %; MEAN CORPUSCULAR HGB CONC 30.6 g/dL (32.0-36.0); MEAN CORPUSCULAR VOLUME 101.3 fL (80.0-94.0); MEAN PLATELET VOLUME 11.5 fL (7.4-11.4); MONOCYTES % (AUTO) 3.9 %; NEUTROPHILS % (AUTO) 91.8 %; PLT - PLATELET COUNT 226 10^3/uL (130-450); RED BLOOD COUNT 3.87 10^6/uL (4.70-6.10); RED CELL DISTRIBUTION WIDTH 14.6 % (12.0-15.0); WHITE BLOOD COUNT 7.2 x10^3/uL (4.8-10.8)
[2019-05-03 19:00] LABS: ALBUMIN 3.3 g/dL (3.2-5.5); ALBUMIN/GLOBULIN RATIO 1.4 (1.0-2.2); CALCIUM 8.6 mg/dL (8.5-10.3); CREATININE 1.7 mg/dL (0.6-1.2); TOTAL PROTEIN 5.6 g/dL (6.7-8.2)
[2019-05-03] MEDS ORDERED: IOVERSOL 320 100 ML VIAL IVP ONE ×2 (19:04→19:30)
[2019-05-03 19:16] LABS: ABNORMAL LYMPHS % (MANUAL) 0 %
--- NOTE | 2019-05-03 19:35 | CT Report ---
Reason: Fall, left orbital injury Procedure Date: 05/03/2019 Accession Number: [id number] / [id number] Procedure: CT - MAXILLOFACIAL WO CPT Code: FULL RESULT: EXAM: CT MAXILLOFACIAL WITHOUT CONTRAST EXAM DATE: 05/03/2019 07:12 PM. CLINICAL HISTORY: 83-year-old with fall and facial strike. Evaluate for facial pathology. COMPARISONS: HEAD W/O 05/03/2019 6:47 PM. TECHNIQUE: Thin-section axial images were acquired of the face without contrast. Post-processing: Coronal and sagittal reformats. Other: None. In accordance with CT protocol optimization, one or more of the following dose reduction techniques were utilized for this exam: automated exposure control, adjustment of mA and/or KV based on patient size, or use of iterative reconstructive technique. FINDINGS: Postsurgical: Postsurgical changes of open reduction internal fixation of the anterior mandible. Postsurgical resections of right hemiglossectomy as well as resection of the right submandibular gland and right neck lymph node dissection. Surgical clips are seen within the right floor of mouth and right lateral neck. Surgical clips are seen within the left temporal scalp region. Soft Tissue: Postsurgical changes as detailed above. Visualized nasopharynx appears normal. Postsurgical changes involving the right oral pharynx. Fat graft is seen within the right base of tongue. Infratemporal fossa appears normal. Visualized soft tissues of the face appear normal. Orbits: Changes of bilateral lens replacement. Bones: Postsurgical changes. No definite acute fracture or suspicious osseous lesion seen. There is diffuse osteopenia. Temporomandibular Joints: The temporomandibular joints are symmetric and normally located. Sinuses: Minimal mucosal thickening of the right maxillary sinus. Other: Visualized intracranial contents demonstrate no definite acute infarct or acute intracranial hemorrhage. Vascular calcifications of the carotid bifurcations. IMPRESSION: 1. No definite orbital facial bone fracture seen. 2. Postsurgical changes, as detailed above. RADIA
--- NOTE | 2019-05-03 19:36 | CT Report ---
Reason: Fall, neck injury Procedure Date: 05/03/2019 Accession Number: [id number] / [id number] Procedure: CT - CERVICAL SPINE WO CPT Code: FULL RESULT: EXAM: CT CERVICAL SPINE WITHOUT CONTRAST DATE: 05/03/2019 07:12 PM. HISTORY: Fall, neck injury. COMPARISONS: HEAD W/O 05/03/2019 6:47 PM. TECHNIQUE: Thin-section axial images were acquired of the cervical spine without contrast. Post-processing: Coronal and sagittal reformats. Other: None. In accordance with CT protocol optimization, one or more of the following dose reduction techniques were utilized for this exam: automated exposure control, adjustment of mA and/or KV based on patient size, or use of iterative reconstructive technique. FINDINGS: Alignment: No evidence of dislocation. There is mild degenerative anterolisthesis of C5 on C6. Bones: No fracture or bone lesion. Interspace Levels/Facets: There is moderate multilevel degenerative disease. Spinal canal: No significant abnormalities are seen. Other: No evidence of apical pneumothorax. There is biapical scarring. IMPRESSION: No evidence of cervical spine fracture or dislocation. RADIA
--- NOTE | 2019-05-03 19:43 | CT Report ---
Reason: fall, aloc Procedure Date: 05/03/2019 Accession Number: [id number] / [id number] Procedure: CT - HEAD WO CPT Code: FULL RESULT: EXAM: CT HEAD WITHOUT CONTRAST. EXAM DATE: 05/03/2019 07:12 PM. CLINICAL HISTORY: 83-year-old with fall and head trauma. Evaluate for intracranial pathology. COMPARISON: CT head 11/13/2017; CT face 05/03/2019. TECHNIQUE: Multiaxial CT images were obtained from the foramen magnum to the vertex. Reformats: Sagittal and coronal. IV contrast: None. In accordance with CT protocol optimization, one or more of the following dose reduction techniques were utilized for this exam: automated exposure control, adjustment of mA and/or KV based on patient size, or use of iterative reconstructive technique. FINDINGS: Parenchyma: No acute parenchymal hemorrhage, mass, or midline shift. Mild to moderate bilateral areas of white matter hypoattenuation seen that appears similar to CT head 11/13/2017. There is no convincing CT evidence of acute infarct. Mild cortical volume loss. Extraaxial Spaces: Sulci and cisterns are prominent but appropriate for the extent of volume loss. No subdural or epidural collections identified. Ventricles: Normal in size and position. Sinuses and Orbits: Changes of bilateral lens replacement. Minimal mucosal thickening of the left maxillary sinus. Bones: No evidence of fracture or calvarial defect. Other: Vascular calcifications of the cavernous and supraclinoid ICA segments. Surgical clips are seen within the left temporal skull. IMPRESSION: 1. No definite acute intracranial pathology seen; specifically, no acute infarct, acute intracranial hemorrhage, mass, hydrocephalus, or midline shift. If there is clinical concern for intracranial pathology or symptoms persist an MR brain could be considered to evaluate small or subtle pathology. 2. No definite calvarial fracture. 3. Mild to moderate white matter changes seen that appears similar to CT head 11/13/2017 and may represent sequela of chronic small vessel ischemic disease. RADIA
[2019-05-03 19:48] LABS: INR 1.1 (0.8-1.2); PT - PROTHROMBIN TIME 12.7 secs (9.9-12.6)
[2019-05-03 19:48] LABS: BAND NEUTROPHILS % (MANUAL) 22 %; DIFFERENTIAL COMMENT MANUAL DIFFERENTIAL; LYMPHOCYTES # (MANUAL) 0.3 10^3/uL (1.5-3.5); LYMPHOCYTES % (MANUAL) 3 %; MONOCYTES # (MANUAL) 0.1 10^3/uL (0.0-1.0); PLATELET ESTIMATE, MANUAL NORMAL (130-450,000) (NORMAL); PLATELET MORPHOLOGY NORMAL APPEARANCE (NORMAL); RBC MORPHOLOGY (MULTIPLE) NORMAL APPEARANCE (NORMAL)
[2019-05-03 19:55] LABS: PARTIAL THROMBOPLASTIN TIME 25.5 secs (24.9-33.3)
--- NOTE | 2019-05-03 20:00 | CT Report ---
Reason: hypoxia, poss PE Procedure Date: 05/03/2019 Accession Number: [id number] / [id number] Procedure: CT - ANGIO CHEST W/WO CPT Code: FULL RESULT: EXAM: CT ANGIOGRAM CHEST EXAM DATE: 05/03/2019 07:11 PM. CLINICAL HISTORY: Hypoxia, poss PE. COMPARISON: CHEST W/O 12/23/2018 1:48 PM. TECHNIQUE: Routine helical imaging was performed through the chest in the pulmonary arterial phase. IV Contrast: OPTI 320 100ML. Reconstructions: Coronal 3-D MIP reconstructions.Sagittal and coronal. In accordance with CT protocol optimization, one or more of the following dose reduction techniques were utilized for this exam: automated exposure control, adjustment of mA and/or KV based on patient size, or use of iterative reconstructive technique. FINDINGS: Pulmonary Arteries: Diagnostic quality: Adequate through the mid segmental arteries. No evidence for acute or chronic pulmonary emboli. Lungs/Pleura: There is consolidation within the posterior segment of the right upper lobe. There is peribronchovascular density within the right lower lobe. Mild atelectasis and endobronchial opacification within the left lung base. No evidence of pleural effusion. There is no pneumothorax. There is biapical scarring. Mediastinum: Heart size is within normal limits. Patient has undergone median sternotomy for aortic valve replacement. There are no enlarged axillary, supraclavicular, mediastinal, or hilar lymph nodes. Thoracic Aorta: There is no evidence of aortic dissection or aneurysm. Upper Abdomen: The visualized portions of the upper abdominal organs demonstrate no acute abnormalities. Other: None. IMPRESSION: 1. No evidence of acute pulmonary embolism. 2. There is right upper lobe infiltrate which is suspicious for pneumonia. 3. There is some patchy peribronchovascular consolidation within the right lower lobe which may also be secondary to infection. 4. There is scattered endobronchial opacification and volume loss within the left lung base which is suggestive of atelectasis. 5. There is biapical scarring. 6. There is no evidence of aortic dissection or aneurysm. RADIA
[2019-05-03] MEDS ORDERED: levoFLOXacin 750 MG/150 ML 750 MG/150 ML BAG IV ONE (20:17)
[2019-05-03] MEDS ORDERED: ONDANSETRON ODT 4 MG TABLET TL PRN (20:59)
--- NOTE | 2019-05-03 23:26 | HISTORY & PHYSICAL EXAMINATION ---
Chief Complaint - Chief Complaint Chief Complaint: s/p fall History of Present Illness - Admitted From Admitted From:: [facility] ED - History Obtained From Records Reviewed: yes History obtained from: patient - History of Present Illness HPI Comment/Other: Patient seen on 05/03/19 at 23:00pm Patient is an 83 y/o male who presented to the ED with chief complain of a fall. This happened around 4 am on 05/03/19. He reports getting up from bed to take some aspirin, when he fell backwards hitting his head and neck. He was on the ground for 30 minutes before waking up. His called 911 later in the day and he was brought in. It is unclear why so much time went by before his presentation to the ED. At bedside he is resting comfortably but complains of neck pain. He denied chest pain, SARAH, abd pain, n/v/d, fever or chills CT of his head, neck and face were unremarkable. He was noted to be hypoxic with and O2Sat of 77% on nasal canula and 91% on a non-rebreather. He does not use oxygen at home. As a result a CTA of the chest was done which was negative for a PE but was suggestive of pneumonia. Patient was last admitted her on 04/14/19 and treated for pneumonia. He was sent home on Augmentin and Azithromycin which he completed. As a result of his hypoxia and radiologic finding on CT, he was presented for admission. History - Past Medical History Cardiovascular: reports: Hypertension, High cholesterol, Coronary artery disease, Peripheral Vascular Disease, Murmur, Valve disorder (aortic valve replacement) Respiratory: reports: COPD, Emphysema, Shortness of breath, Sleep apnea Neuro: reports: Peripheral neuropathy Endocrine/Autoimmune: reports: HyPOthyroidism GI: reports: GERD, Ulcers [employer]: reports: None : reports: Benign prostate hypertrophy, Nocturia HEENT: reports: Chronic vision loss, Chronic sinusitis Psych: reports: Depression Musculoskeletal: reports: Fatigue, Chronic back pain Derm: reports: None, Herpes zoster MRSA Hx?: No - Past Surgical History General: reports: Appendectomy, Other (left inguinal Hernia repair) Cardiovascular: reports: Valve replacement, Vascular surgery (Left open CEA after failed stent placement.) HEENT: reports: Tonsil/Adenoidectomy Derm: reports: Skin cancer surgery - Family & Social History Family History: Mother: , CAD, COPD/Emphysema, Father: , CAD, Cancer, COPD/Emphysema, Other family: , Cancer Family History Comment/Other: The patient worked in a [employer] for all of his working years and is to [place]. They had 3 children, one daughter has . They moved to [facility] from [place] in 1995. They have a son-in-law and a grand daughter who lives nearby. The patient admits to smoking cigarettes from age [age], admits to social/occasional alcohol use, denies alcoholism, denies illicit drug use. He wishes to peacefully if his heart stops or he stops breathing. He, confirmed by his wish to be a DNR. Living arrangement: At home Living Situation: With spouse/s.o. - Substance History Use: Uses substance without health or social issues: NONE - POLST Patient has POLST: No POLST Status: DNR Meds/Allgy - Home Medications Home Medications: Ambulatory Orders Medication Instructions Recorded Confirmed Cholecalciferol (Vitamin D3) 1,000 units PO DAILY 12/18/16 04/14/19 [Vitamin D3] Clopidogrel Bisulfate [Plavix] 75 mg PO DAILY 12/18/16 04/14/19 Levothyroxine Sodium [Levo-T] 175 mcg PO QDAC 12/18/16 04/14/19 Losartan [Cozaar] 12.5 mg PO DAILY 12/18/16 04/14/19 Aspirin/Caffeine [Back-Body Pain 2 tab PO DAILY PRN 04/14/19 04/14/19 500-32.5MG Cplt] Celecoxib [CeleBREX] 200 mg PO DAILY PRN 04/14/19 04/14/19 PARoxetine HCl [Paroxetine HCl] 20 mg PO DAILY 04/14/19 04/14/19 Prednisone 5 mg PO DAILY 04/14/19 04/14/19 diazePAM [Diazepam] 2.5 mg PO QPM PRN 04/14/19 04/14/19 Amox/Clav 875/125 [Augmentin] 1 each PO Q12H #10 tablet 04/16/19 Azithromycin 250 mg PO DAILY 5 Days #6 tab 04/16/19 Fluticasone [Flonase] 2 sprays AMY DAILY #2 bottle 04/16/19 Fluticasone/Salmeterol [Advair 1 each IH BID #1 blst.w.dev 04/16/19 250-50 Diskus] Montelukast [Singulair] 10 mg PO QPM #30 tablet 04/16/19 Prednisone 10 mg PO DAILY #3 tab.ds.pk 04/16/19 Saccharomyces Boulardii [Florastor] 250 mg PO BID #60 capsule 04/16/19 Tiotropium Stuart [Spiriva] 1 puffs INH DAILY 30 Days #30 each 04/16/19 - Allergies Allergies/Adverse Reactions: Allergies Allergy/AdvReac Type Severity Reaction Status Date / Time Latex, Natural Rubber Allergy respiratory Verified 04/14/19 11:55 distress Review of Systems - Constitutional Constitutional: denies: Fatigue, Fever, Chills, Weakness - Eyes Eyes: denies: Pain, Irritation, Blurred vision, Vision loss, Dipolpia - Ears, Nose & Throat Ears, Nose & Throat: reports: Hearing loss (hard of hearing). denies: Ear pain, Vertigo, Nasal pain, Sore throat, Hoarseness - Cardiovascular Cariovascular: reports: Lightheadedness. denies: Chest pain, Exertional d yspnea, Decr. exercise tolerance - Respiratory Respiratory: reports: Wheezing. denies: Cough, Sputum production, SOB at rest, SOB with exertion - Gastrointestinal Gastrointestinal: denies: Abdominal pain, Abdominal distention, Constipation, Diarrhea, Change in bowel habits, Nausea, Vomiting, Reflux/heartburn - Genitourinary Genitourinary: denies: Dysuria, Frequency, Urgency, Hematuria, Incontinence, Flank pain - Musculoskeletal Musculoskeletal: reports: Muscle pain (neck pain). denies: Back pain, Muscle aches, Stiffness - Integumentary Integumentary: denies: Rash, Pruritis, Lumps - Neurological Neurological: denies: General weakness, Focal weakness, Headache - Psychiatric Psychiatric: denies: Depression, Anxiety - Endocrine Endocrine: denies: Polyuria, Polydypsia - Hematologic/Lymphatic Hematologic/Lymphatic: reports: Bruising (left orbit hematoma). denies: Anemia Prior Level of Functionality: Patient aleena with his . He is independent of activities of daily living He drives, can make his own meals. Can ambulate to the mailbox at the end of the drive way and back without any difficulty and not needing to rest Exam - Vital Signs Vital Signs: Vital Signs x48h Temp Pulse Pulse Resp BP BP Pulse Ox 05/03/19 22:14 37.1 C 73 16 95/46 L 94 05/03/19 21:29 74 14 96/50 L 96 05/03/19 21:00 76 17 89/52 L 96 05/03/19 20:48 77 16 105/53 L 96 05/03/19 20:12 74 18 102/49 L 96 05/03/19 19:41 77 18 138/68 H 91 L 05/03/19 19:17 79 18 05/03/19 18:23 77 21 135/64 H 91 L 05/03/19 18:14 100.2 C H 83 18 132/60 H 77 L - Physical Exam General Appearance: positive: Alert, Moderate distress (pain in the back of his neck due to fall) Eyes Bilateral: positive: PERRL, EOMI, Other (bruising/ small hematoma around left eye orbit) Neck: positive: Nml inspection, No JVD, Trachea midline Respiratory: positive: Chest non-tender, No respiratory distress, Wheezes, Rales Cardiovascular: positive: Regular rate & rhythm, No murmur Abdomen: positive: Non-tender, No organomegaly, Nml bowel sounds, No distention. negative: Guarding, Rebound Back: positive: Nml inspection Skin: positive: Color nml, Other (bruise around left eye) Extremities: positive: Non-tender, No pedal edema Neurologic/Psychiatric: positive: Oriented x3, CN's nml (2-12), Motor nml, Sensation nml Conclusion/Plan - Problem List (1) Acute respiratory failure with hypoxia Conclusion/Plan: Suspect 2/2 pneumonia Patient has been previously treated with azithromycin and augmentin for 5 days Levaquin 750mg IV q48hrs ordered. Patient on oxygen with oxymizer 6L. Will assess oxygen need with desaturation study during the day Resume home Pulmicort and atrovent (2) Pneumonia Conclusion/Plan: On levaquin 750mg IV q48 hrs Qualifiers: Pneumonia type: due to unspecified organism Laterality: unspecified laterality Lung location: unspecified part of lung Qualified Code(s): J18.9 - Pneumonia, unspecified organism (3) Syncope and collapse Conclusion/Plan: ? 2/2 Dehydration Will check orthostatics Gentle IV hydration Hold diazepam and losartan for now (4) Hypothyroid Conclusion/Plan: COntinue synthroid (5) Depression Conclusion/Plan: On paroxetine Qualifiers: Depression Type: major depressive disorder Major depression recurrence: unspecified whether recurrent Active/Remission status: currently active Major depression episode severity: moderate Qualified Code(s): F32.1 - Major depressive disorder, single episode, moderate (6) GERD (gastroesophageal reflux disease) Conclusion/Plan: Protonix ordered - Lab Results Fish Bones: 05/03/19 18:35 05/03/19 18:35 Core Measures - Anticipated LOS I expect patient to be DC'd or transferred within 96 hours.: Yes - DVT/VTE - Prophylaxis VTE/DVT Device ordered at admit?: Yes VTE/DVT Prophylaxis med ordered at admit?: No Not Ordered - Medical Reason: Contraindicated (hematoma)
[2019-05-04] MEDS: oxyCODONE 5 MG TABLET PO PRN (00:08)
[2019-05-04] MEDS: SODIUM CHLORIDE FLUSH 0.9% 10 ML SYRINGE IVP SCH ×4 (00:38→23:42)
[2019-05-04] MEDS ORDERED: IPRATROPIUM 0.2 MG/ML NEB INH SCH ×2 (01:00→09:00)
[2019-05-04] MEDS ORDERED: SODIUM CHLORIDE 0.9% 1,000 ML IV SCH (01:00)
[2019-05-04 01:17] LABS: BILIRUBIN,URINE NEGATIVE (NEGATIVE); GLUCOSE, URINE (UA) NEGATIVE (NEGATIVE); KETONES,URINE (UA) TRACE mg/dL (NEGATIVE); LEUKOCYTE ESTERASE, URINE NEGATIVE (NEGATIVE); NITRITE,URINE NEGATIVE (NEGATIVE); OCCULT BLOOD,URINE NEGATIVE (NEGATIVE); PROTEIN,URINE TRACE mg/dL (NEGATIVE); UROBILINOGEN,URINE 0.2 (NORMAL) E.U./dL (NORMAL)
[2019-05-04 01:18] LABS: CLARITY,URINE CLEAR (CLEAR)
[2019-05-04 04:49] LABS: BASOPHILS % (AUTO) 0.3 %; EOSINOPHILS % (AUTO) 0.5 %; LYMPHOCYTES % (AUTO) 5.7 %; MEAN CORPUSCULAR HEMOGLOBIN 30.6 pg (27.0-31.0); MEAN CORPUSCULAR HGB CONC 30.5 g/dL (32.0-36.0); MEAN CORPUSCULAR VOLUME 100.3 fL (80.0-94.0); MEAN PLATELET VOLUME 11.6 fL (7.4-11.4); MONOCYTES % (AUTO) 9.8 %; NEUTROPHILS % (AUTO) 83.1 %; PLT - PLATELET COUNT 216 10^3/uL (130-450); RED CELL DISTRIBUTION WIDTH 14.6 % (12.0-15.0); WHITE BLOOD COUNT 12.8 x10^3/uL (4.8-10.8)
[2019-05-04 05:03] LABS: CALCIUM 8.5 mg/dL (8.5-10.3); CREATININE 1.5 mg/dL (0.6-1.2)
[2019-05-04 05:11] LABS: ABNORMAL LYMPHS % (MANUAL) 0 %
[2019-05-04 06:18] LABS: BAND NEUTROPHILS % (MANUAL) 28 %; DIFFERENTIAL COMMENT MANUAL DIFFERENTIAL; LYMPHOCYTES # (MANUAL) 0.6 10^3/uL (1.5-3.5); LYMPHOCYTES % (MANUAL) 5 %; MONOCYTES # (MANUAL) 0.5 10^3/uL (0.0-1.0); PLATELET ESTIMATE, MANUAL NORMAL (130-450,000) (NORMAL); RBC MORPHOLOGY (MULTIPLE) NORMAL APPEARANCE (NORMAL)
[2019-05-04] MEDS: PANTOPRAZOLE 40 MG TABLET PO SCH (06:19)
[2019-05-04] MEDS: IPRATROPIUM 0.2 MG/ML NEB INH SCH ×4 (07:34→19:14)
[2019-05-04] MEDS: BUDESONIDE 0.5 MG/2 ML NEB INH SCH ×2 (07:34→19:14)
[2019-05-04] MEDS: SODIUM CHLORIDE 0.9% 1,000 ML IV SCH ×2 (09:52→19:36)
[2019-05-04] MEDS: POLYETHYLENE GLYCOL 3350 17 GM PACKET PO SCH (10:17)
[2019-05-04] MEDS: guaiFENesin 600 MG TABLET PO SCH ×2 (12:49→19:36)
--- NOTE | 2019-05-04 18:46 | PROVIDER PROGRESS NOTE ---
Subjective - Prog Note Date Prog Note Date: 05/04/19 - Subjective Pt reports feeling: Improved Subjective: pt report he feel slight better than yesterday and breath is better. pt report he still has cough, but denies fever, chill, shortness of breath, chest pain now. Current Medications - Current Medications Current Medications: Active Medications Acetaminophen (Tylenol) 650 mg PO Q6HR PRN PRN Reason: Pain 1 to 4 Last Admin: 05/05/19 14:27 Dose: 650 mg Budesonide (Pulmicort) 0.5 mg INH RTBID [facility] Last Admin: 05/04/19 19:14 Dose: 0.5 mg Clopidogrel Bisulfate (Plavix) 75 mg PO DAILY [facility] Last Admin: 05/05/19 08:19 Dose: 75 mg Guaifenesin (Mucinex) 600 mg PO BID [facility] Last Admin: 05/05/19 08:19 Dose: 600 mg Hydralazine HCl (Apresoline Inj) 10 mg IVP QID PRN PRN Reason: Hypertensive Emergency Levofloxacin (Levaquin 750 Mg/150 Ml) 750 mg in 150 mls @ 100 mls/hr IV Q48H [facility] Ipratropium [place] (Atrovent) 0.5 mg INH RTQID [facility] Last Admin: 05/04/19 19:14 Dose: 0.5 mg Levothyroxine Sodium (Synthroid) 50 mcg PO 0700 [facility] Last Admin: 05/05/19 06:00 Dose: 50 mcg Ondansetron HCl (Zofran Odt) 4 mg TL Q6HR PRN PRN Reason: Nausea / Vomiting Oxycodone HCl (Roxicodone) 5 mg PO Q6HR PRN PRN Reason: PAIN Last Admin: 05/04/19 00:08 Dose: 5 mg Pantoprazole Sodium (Protonix) 40 mg PO QDAC [facility] Last Admin: 05/05/19 06:01 Dose: 40 mg Polyethylene Glycol (Miralax) 17 gm PO DAILY [facility] Last Admin: 05/05/19 08:19 Dose: 17 gm Sodium Chloride (Normal Saline Flush 0.9%) 10 ml IVP PRN PRN PRN Reason: NEEDED PER PROVIDER ORDERS Last Admin: 05/05/19 05:30 Dose: 10 ml Sodium Chloride (Normal Saline Flush 0.9%) 10 ml IVP 0100,0900,1700 [facility] Last Admin: 05/05/19 08:19 Dose: 10 ml Cholecalciferol (Vitamin D3) [Vitamin D3] 1,000 units PO DAILY 12/18/16 Clopidogrel Bisulfate [Plavix] 75 mg PO DAILY 12/18/16 Losartan [Cozaar] 12.5 mg PO DAILY 12/18/16 Aspirin/Caffeine [Back-Body Pain 500-32.5MG Cplt] 2 tab PO DAILY PRN 04/14/19 Celecoxib [CeleBREX] 200 mg PO DAILY PRN 04/14/19 PARoxetine HCl [Paroxetine HCl] 20 mg PO DAILY 04/14/19 Prednisone 5 mg PO DAILY 04/14/19 diazePAM [Diazepam] 2.5 mg PO QPM PRN 04/14/19 Fluticasone [Flonase] 2 sprays AMY DAILY 05/04/19 Levothyroxine Sodium 50 mcg PO DAILY 05/04/19 Multivitamin [Multivitamins] 1 tab PO DAILY 05/04/19 Objective - Vital Signs/Intake & Output Reviewed Vital Signs: Yes Vital Signs: Vital Signs x48h Temp Pulse Pulse Pulse Pulse Pulse Resp 05/04/19 16:21 79 05/04/19 16:16 37.2 C 65 16 05/04/19 16:07 76 77 77 05/04/19 15:42 76 18 05/04/19 11:18 62 16 BP BP BP BP Pulse Ox 05/04/19 16:21 190/86 H 05/04/19 16:16 193/88 H 100 05/04/19 16:07 159/79 H 179/90 H 180/99 H 05/04/19 15:42 05/04/19 11:18 Intake & Output: Intake & Output 05/01/19 05/02/19 05/03/19 05/04/19 23:59 23:59 23:59 23:59 Intake Total 1200 1380 Output Total 150 Balance 1200 1230 - Objective General Appearance: positive: No acute distress, Alert. negative: Lethargic Eyes Bilateral: positive: Normal inspection, PERRL, No lid inflammation, Conjunctivae nml ENT: positive: ENT inspection nml, Pharynx nml, No signs of dehydration. negative: Purulent nasal drainage, Pharyngeal erythema, Oral lesions Neck: positive: Nml inspection, Thyroid nml, No JVD, Trachea midline. negative: Thyromegaly, Lymphadenopathy (R), Lymphadenopathy (L), Stiff neck, Swelling/bruising, Tracheal deviation Respiratory: positive: Chest non-tender, No respiratory distress, Rhonchi. negative: Wheezes, Rales Cardiovascular: positive: Regular rate & rhythm, No murmur, No gallop. negative: Irregularly irregular, Extrasystoles, Tachycardia, Bradycardia, JVD present, Systolic murmur, Diastolic murmur Peripheral Pulses: 2+ Radial (R), 2+ Radial (L), 2+ Dorsalis pedis (R), 2+ Dorsalis pedis (L) Abdomen: positive: Non-tender, No organomegaly, Nml bowel sounds, No distention. negative: Tenderness, Guarding, Rebound Back: positive: Nml inspection. negative: CVA tenderness (R), CVA tenderness (L) Skin: positive: Color nml, No rash, Warm, Dry. negative: Cyanosis, Diaphoresis, Pallor Extremities: positive: Non-tender, Full ROM, Nml appearance. negative: Calf tenderness, Joint swelling, Juan Luis's sign/cords Neurologic/Psychiatric: positive: Oriented x3, Motor nml, Sensation nml, Mood/affect nml. negative: Weakness, Sensory loss, Facial droop, Slurred/abnml speech, Depressed mood/affect - Lab Results Fish Bones: 05/05/19 04:55 05/05/19 04:55 Other Labs: Lab Results x24hrs 05/04/19 05/04/19 05/04/19 Range/Units 04:30 04:30 00:20 WBC 12.8 H (4.8-10.8) x10^3/uL RBC 3.60 L (4.70-6.10) 10^6/uL Hgb 11.0 L (14.0-18.0) g/dL Hct 36.1 L (42.0-52.0) % MCV 100.3 H (80.0-94.0) fL MCH 30.6 (27.0-31.0) pg MCHC 30.5 L (32.0-36.0) g/dL RDW 14.6 (12.0-15.0) % Plt Count 216 (130-450) 10^3/uL MPV 11.6 H (7.4-11.4) fL Neut # (Auto) Not Reportable Lymph # (Auto) Not Reportable [place] # (Auto) Not Reportable Eos # (Auto) Not Reportable Baso # (Auto) Not Reportable Absolute Nucleated RBC Not Reportable Total Counted 100 Band Neuts % (Manual) 28 H (0 - 10) % Reactive Lymphs % (Man) % Abnorm Lymph % (Manual) 0 % Nucleated RBC % Not Reportable Neutrophils # (Manual) 11.6 H (1.5-6.6) 10^3/uL Lymphocytes # (Manual) 0.6 L (1.5-3.5) 10^3/uL Monocytes # (Manual) 0.5 (0.0-1.0) 10^3/uL Eosinophils # (Manual) 0.0 (0-0.7) 10^3/uL Basophils # (Manual) 0.0 (0-0.1) 10^3/uL Differential Comment MANUAL DIFFERENTIAL Platelet Estimate NORMAL (130-450,000) (NORMAL) Platelet Morphology (NORMAL) RBC Morph Micro Appear NORMAL APPEARANCE (NORMAL) PT (9.9-12.6) secs INR (0.8-1.2) APTT (24.9-33.3) secs Sodium 142 (135-145) mmol/L Potassium 5.0 (3.5-5.0) mmol/L Chloride 106 (101-111) mmol/L Carbon Dioxide 27 (21-32) mmol/L Anion Gap 9.0 (6-13) BUN 34 H (6-20) mg/dL Creatinine 1.5 H (0.6-1.2) mg/dL Estimated GFR (MDRD) 45 L (>89) Glucose 124 H (70-100) mg/dL Lactic Acid (0.5-2.2) mmol/L Calcium 8.5 (8.5-10.3) mg/dL Total Bilirubin (0.2-1.0) mg/dL AST (10-42) IU/L ALT (10-60) IU/L Alkaline Phosphatase (42-121) IU/L Total Protein (6.7-8.2) g/dL Albumin (3.2-5.5) g/dL Globulin (2.1-4.2) g/dL Albumin/Globulin Ratio (1.0-2.2) Lipase (22-51) U/L Urine Color YELLOW Urine Clarity CLEAR (CLEAR) Urine pH 5.0 (5.0-7.5) PH Ur Specific [place] 1.010 (1.002-1.030) Urine Protein TRACE (NEGATIVE) mg/dL Urine Glucose (UA) NEGATIVE (NEGATIVE) mg/dL Urine Ketones TRACE (NEGATIVE) mg/dL Urine Occult Blood NEGATIVE (NEGATIVE) Urine Nitrite NEGATIVE (NEGATIVE) Urine Bilirubin NEGATIVE (NEGATIVE) Urine Urobilinogen 0.2 (NORMAL) (NORMAL) E.U./dL Ur Leukocyte Esterase NEGATIVE (NEGATIVE) Ur Microscopic Review NOT INDICATED Urine Culture Comments NOT INDICATED 05/03/19 05/03/19 05/03/19 Range/Units 19:27 19:27 18:35 WBC (4.8-10.8) x10^3/uL RBC (4.70-6.10) 10^6/uL Hgb (14.0-18.0) g/dL Hct (42.0-52.0) % MCV (80.0-94.0) fL MCH (27.0-31.0) pg MCHC (32.0-36.0) g/dL RDW (12.0-15.0) % Plt Count (130-450) 10^3/uL MPV (7.4-11.4) fL Neut # (Auto) Lymph # (Auto) [place] # (Auto) Eos # (Auto) Baso # (Auto) Absolute Nucleated RBC Total Counted Band Neuts % (Manual) (0 - 10) % Reactive Lymphs % (Man) % Abnorm Lymph % (Manual) % Nucleated RBC % Neutrophils # (Manual) (1.5-6.6) 10^3/uL Lymphocytes # (Manual) (1.5-3.5) 10^3/uL Monocytes # (Manual) (0.0-1.0) 10^3/uL Eosinophils # (Manual) (0-0.7) 10^3/uL Basophils # (Manual) (0-0.1) 10^3/uL Differential Comment Platelet Estimate (NORMAL) Platelet Morphology (NORMAL) RBC Morph Micro Appear (NORMAL) PT 12.7 H (9.9-12.6) secs INR 1.1 (0.8-1.2) APTT 25.5 (24.9-33.3) secs Sodium 138 (135-145) mmol/L Potassium 4.4 (3.5-5.0) mmol/L Chloride 102 (101-111) mmol/L Carbon Dioxide 25 (21-32) mmol/L Anion Gap 11.0 (6-13) BUN 32 H (6-20) mg/dL Creatinine 1.7 H (0.6-1.2) mg/dL Estimated GFR (MDRD) 39 L (>89) Glucose 146 H (70-100) mg/dL Lactic Acid 0.9 (0.5-2.2) mmol/L Calcium 8.6 (8.5-10.3) mg/dL Total Bilirubin 1.0 (0.2-1.0) mg/dL AST 19 (10-42) IU/L ALT 14 (10-60) IU/L Alkaline Phosphatase 49 (42-121) IU/L Total Protein 5.6 L (6.7-8.2) g/dL Albumin 3.3 (3.2-5.5) g/dL Globulin 2.3 (2.1-4.2) g/dL Albumin/Globulin Ratio 1.4 (1.0-2.2) Lipase 19 L (22-51) U/L Urine Color Urine Clarity (CLEAR) Urine pH (5.0-7.5) PH Ur Specific [place] (1.002-1.030) Urine Protein (NEGATIVE) mg/dL Urine Glucose (UA) (NEGATIVE) mg/dL Urine Ketones (NEGATIVE) mg/dL Urine Occult Blood (NEGATIVE) Urine Nitrite (NEGATIVE) Urine Bilirubin (NEGATIVE) Urine Urobilinogen (NORMAL) E.U./dL Ur Leukocyte Esterase (NEGATIVE) Ur Microscopic Review Urine Culture Comments 05/03/19 Range/Units 18:35 WBC 7.2 (4.8-10.8) x10^3/uL RBC 3.87 L (4.70-6.10) 10^6/uL Hgb 12.0 L (14.0-18.0) g/dL Hct 39.2 L (42.0-52.0) % MCV 101.3 H (80.0-94.0) fL MCH 31.0 (27.0-31.0) pg MCHC 30.6 L (32.0-36.0) g/dL RDW 14.6 (12.0-15.0) % Plt Count 226 (130-450) 10^3/uL MPV 11.5 H (7.4-11.4) fL Neut # (Auto) Not Reportable Lymph # (Auto) Not Reportable [place] # (Auto) Not Reportable Eos # (Auto) Not Reportable Baso # (Auto) Not Reportable Absolute Nucleated RBC Not Reportable Total Counted 100 Band Neuts % (Manual) 22 H (0 - 10) % Reactive Lymphs % (Man) 1 % Abnorm Lymph % (Manual) 0 % Nucleated RBC % Not Reportable Neutrophils # (Manual) 6.8 H (1.5-6.6) 10^3/uL Lymphocytes # (Manual) 0.3 L (1.5-3.5) 10^3/uL Monocytes # (Manual) 0.1 (0.0-1.0) 10^3/uL Eosinophils # (Manual) 0.0 (0-0.7) 10^3/uL Basophils # (Manual) 0.0 (0-0.1) 10^3/uL Differential Comment MANUAL DIFFERENTIAL Platelet Estimate NORMAL (130-450,000) (NORMAL) Platelet Morphology NORMAL APPEARANCE (NORMAL) RBC Morph Micro Appear NORMAL APPEARANCE (NORMAL) PT (9.9-12.6) secs INR (0.8-1.2) APTT (24.9-33.3) secs Sodium (135-145) mmol/L Potassium (3.5-5.0) mmol/L Chloride (101-111) mmol/L Carbon Dioxide (21-32) mmol/L Anion Gap (6-13) BUN (6-20) mg/dL Creatinine (0.6-1.2) mg/dL Estimated GFR (MDRD) (>89) Glucose (70-100) mg/dL Lactic Acid (0.5-2.2) mmol/L Calcium (8.5-10.3) mg/dL Total Bilirubin (0.2-1.0) mg/dL AST (10-42) IU/L ALT (10-60) IU/L Alkaline Phosphatase (42-121) IU/L Total Protein (6.7-8.2) g/dL Albumin (3.2-5.5) g/dL Globulin (2.1-4.2) g/dL Albumin/Globulin Ratio (1.0-2.2) Lipase (22-51) U/L Urine Color Urine Clarity (CLEAR) Urine pH (5.0-7.5) PH Ur Specific [place] (1.002-1.030) Urine Protein (NEGATIVE) mg/dL Urine Glucose (UA) (NEGATIVE) mg/dL Urine Ketones (NEGATIVE) mg/dL Urine Occult Blood (NEGATIVE) Urine Nitrite (NEGATIVE) Urine Bilirubin (NEGATIVE) Urine Urobilinogen (NORMAL) E.U./dL Ur Leukocyte Esterase (NEGATIVE) Ur Microscopic Review Urine Culture Comments ABX Reporting Has patient been on IV antibiotics over the past 48 hours?: Yes Sepsis Event Note (H) - Evaluation Current Stage of Sepsis: Ruled out Assessment/Plan - Problem List (1) Acute respiratory failure with hypoxia Impression: 05/04 pt feel some better than yesterday. 94% sats on 2 liter of O2. hypoxia is likely caused by pneumonia continue antibiotics Levaquin Muscix sputum culture Resume home Pulmicort and atrovent (2) Pneumonia Conclusion/Plan: CTA reveals has pneumonia on right upper and low lobes continue levaquin 750mg IV q48 hrs (3) Syncope and collapse Conclusion/Plan: 05/04 ECHO reveals normal systolic EF with mild abnormal right ventricular pressure, but pt has 53 mmHG RVSP, pulmonary HTN is likely. EKG reveals SR, it seems pt's syncope is caused by hypoxia with pneumonia treat underline pneumonia with antibiotics tele and vital monitor fall precaution (4) Hypothyroid Conclusion/Plan: 05/04 check TSH, continue synthroid COntinue synthroid (5) Depression Conclusion/Plan: 05/04 stable On paroxetine (6) GERD (gastroesophageal reflux disease) Conclusion/Plan: Protonix ordered (7) acute kidney injury pt has increased creatinine to 1.7 at admission. pt has 1.2 creatinine in the previous admission. Today his creatinine is 1.5, slight improved. continue gently hydration, hold nephotoxical agent lab monitor
[2019-05-04] MEDS: ACETAMINOPHEN 325 MG TABLET PO PRN (20:12)
[2019-05-05 05:03] LABS: BASOPHILS % (AUTO) 0.3 %; EOSINOPHILS # (AUTO) 0.1 10^3/uL (0.0-0.7); EOSINOPHILS % (AUTO) 1.5 %; HGB - HEMOGLOBIN 9.9 g/dL (14.0-18.0); LYMPHOCYTES # (AUTO) 0.7 10^3/uL (1.5-3.5); LYMPHOCYTES % (AUTO) 7.5 %; MEAN CORPUSCULAR HEMOGLOBIN 30.2 pg (27.0-31.0); MEAN CORPUSCULAR HGB CONC 29.6 g/dL (32.0-36.0); MEAN CORPUSCULAR VOLUME 101.8 fL (80.0-94.0); MEAN PLATELET VOLUME 11.5 fL (7.4-11.4); MONOCYTES % (AUTO) 10.3 %; NEUTROPHILS # (AUTO) 7.7 10^3/uL (1.5-6.6); NEUTROPHILS % (AUTO) 79.9 %; PLT - PLATELET COUNT 179 10^3/uL (130-450); RED BLOOD COUNT 3.28 10^6/uL (4.70-6.10); RED CELL DISTRIBUTION WIDTH 14.6 % (12.0-15.0); WHITE BLOOD COUNT 9.7 x10^3/uL (4.8-10.8)
[2019-05-05 05:10] LABS: CALCIUM 8.4 mg/dL (8.5-10.3); CREATININE 1.2 mg/dL (0.6-1.2)
[2019-05-05] MEDS: SODIUM CHLORIDE FLUSH 0.9% 10 ML SYRINGE IVP PRN (05:30)
[2019-05-05] MEDS: LEVOTHYROXINE 25 MCG TABLET PO SCH (06:00)
[2019-05-05] MEDS: PANTOPRAZOLE 40 MG TABLET PO SCH (06:01)
[2019-05-05] MEDS: SODIUM CHLORIDE FLUSH 0.9% 10 ML SYRINGE IVP SCH ×2 (08:19→18:42)
[2019-05-05] MEDS: POLYETHYLENE GLYCOL 3350 17 GM PACKET PO SCH (08:19)
[2019-05-05] MEDS: CLOPIDOGREL 75 MG TABLET PO SCH (08:19)
[2019-05-05] MEDS: guaiFENesin 600 MG TABLET PO SCH ×2 (08:19→20:40)
[2019-05-05] MEDS: ACETAMINOPHEN 325 MG TABLET PO PRN (14:27)
--- NOTE | 2019-05-05 16:17 | PROVIDER PROGRESS NOTE ---
Subjective - Subjective Pt reports feeling: Improved Subjective: pt report he feel ok, he denies fever, chill, chest pain. he report his cough is better. pt's sat is 97% on 2 liter of O2. Current Medications - Current Medications Current Medications: Active Medications Acetaminophen (Tylenol) 650 mg PO Q6HR PRN PRN Reason: Pain 1 to 4 Last Admin: 05/05/19 14:27 Dose: 650 mg Budesonide (Pulmicort) 0.5 mg INH RTBID [facility] Last Admin: 05/04/19 19:14 Dose: 0.5 mg Clopidogrel Bisulfate (Plavix) 75 mg PO DAILY [facility] Last Admin: 05/05/19 08:19 Dose: 75 mg Guaifenesin (Mucinex) 600 mg PO BID [facility] Last Admin: 05/05/19 08:19 Dose: 600 mg Hydralazine HCl (Apresoline Inj) 10 mg IVP QID PRN PRN Reason: Hypertensive Emergency Levofloxacin (Levaquin 750 Mg/150 Ml) 750 mg in 150 mls @ 100 mls/hr IV Q48H [facility] Sodium Chloride (Normal Saline 0.9%) 1,000 mls @ 83 mls/hr IV .Q12H3M [facility] Stop: 05/06/19 17:05 Ipratropium [place] (Atrovent) 0.5 mg INH RTQID [facility] Last Admin: 05/04/19 19:14 Dose: 0.5 mg Levothyroxine Sodium (Synthroid) 50 mcg PO 0700 [facility] Last Admin: 05/05/19 06:00 Dose: 50 mcg Ondansetron HCl (Zofran Odt) 4 mg TL Q6HR PRN PRN Reason: Nausea / Vomiting Oxycodone HCl (Roxicodone) 5 mg PO Q6HR PRN PRN Reason: PAIN Last Admin: 05/04/19 00:08 Dose: 5 mg Pantoprazole Sodium (Protonix) 40 mg PO QDAC [facility] Last Admin: 05/05/19 06:01 Dose: 40 mg Polyethylene Glycol (Miralax) 17 gm PO DAILY [facility] Last Admin: 05/05/19 08:19 Dose: 17 gm Sodium Chloride (Normal Saline Flush 0.9%) 10 ml IVP PRN PRN PRN Reason: NEEDED PER PROVIDER ORDERS Last Admin: 05/05/19 05:30 Dose: 10 ml Sodium Chloride (Normal Saline Flush 0.9%) 10 ml IVP 0100,0900,1700 [facility] Last Admin: 05/05/19 08:19 Dose: 10 ml Cholecalciferol (Vitamin D3) [Vitamin D3] 1,000 units PO DAILY 12/18/16 Clopidogrel Bisulfate [Plavix] 75 mg PO DAILY 12/18/16 Losartan [Cozaar] 12.5 mg PO DAILY 12/18/16 Aspirin/Caffeine [Back-Body Pain 500-32.5MG Cplt] 2 tab PO DAILY PRN 04/14/19 Celecoxib [CeleBREX] 200 mg PO DAILY PRN 04/14/19 PARoxetine HCl [Paroxetine HCl] 20 mg PO DAILY 04/14/19 Prednisone 5 mg PO DAILY 04/14/19 diazePAM [Diazepam] 2.5 mg PO QPM PRN 04/14/19 Fluticasone [Flonase] 2 sprays AMY DAILY 05/04/19 Levothyroxine Sodium 50 mcg PO DAILY 05/04/19 Multivitamin [Multivitamins] 1 tab PO DAILY 05/04/19 Objective - Vital Signs/Intake & Output Reviewed Vital Signs: Yes Vital Signs: Vital Signs x48h Temp Pulse Pulse Resp BP Pulse Ox 05/05/19 12:39 37.5 C 82 16 154/72 H 97 05/05/19 10:15 73 18 05/05/19 10:00 37.2 C 73 18 94 Intake & Output: Intake & Output 05/02/19 05/03/19 05/04/19 05/05/19 23:59 23:59 23:59 23:59 Intake Total 1200 2903.333 1480 Output Total 150 Balance 1200 2753.333 1480 - Objective General Appearance: positive: No acute distress, Alert. negative: Lethargic Eyes Bilateral: positive: Normal inspection, PERRL, No lid inflammation, Conjunctivae nml ENT: positive: ENT inspection nml, Pharynx nml, No signs of dehydration. negative: Purulent nasal drainage, Pharyngeal erythema, Oral lesions Neck: positive: Nml inspection, Thyroid nml, No JVD, Trachea midline. negative: Thyromegaly, Lymphadenopathy (R), Lymphadenopathy (L), Stiff neck, Swelling/bruising, Tracheal deviation Respiratory: positive: Chest non-tender, No respiratory distress, Rhonchi. negative: Wheezes, Rales Cardiovascular: positive: Regular rate & rhythm, No murmur, No gallop. negative: Irregularly irregular, Extrasystoles, Tachycardia, Bradycardia, JVD present, Systolic murmur, Diastolic murmur Peripheral Pulses: 2+ Radial (R), 2+ Radial (L), 2+ Dorsalis pedis (R), 2+ Dorsalis pedis (L) Abdomen: positive: Non-tender, No organomegaly, Nml bowel sounds, No distention. negative: Tenderness, Guarding, Rebound Back: positive: Nml inspection. negative: CVA tenderness (R), CVA tenderness (L) Skin: positive: Color nml, No rash, Warm, Dry. negative: Cyanosis, Diaphoresis, Pallor Extremities: positive: Non-tender, Full ROM, Nml appearance. negative: Calf tenderness, Joint swelling Neurologic/Psychiatric: positive: Oriented x3, Motor nml, Sensation nml, Mood/affect nml. negative: Weakness, Sensory loss, Facial droop, Slurred/abnml speech, Depressed mood/affect - Lab Results Fish Bones: 05/05/19 04:55 05/05/19 04:55 Other Labs: Lab Results x24hrs 05/05/19 05/05/19 Range/Units 04:55 04:55 WBC 9.7 (4.8-10.8) x10^3/uL RBC 3.28 L (4.70-6.10) 10^6/uL Hgb 9.9 L (14.0-18.0) g/dL Hct 33.4 L (42.0-52.0) % MCV 101.8 H (80.0-94.0) fL MCH 30.2 (27.0-31.0) pg MCHC 29.6 L (32.0-36.0) g/dL RDW 14.6 (12.0-15.0) % Plt Count 179 (130-450) 10^3/uL MPV 11.5 H (7.4-11.4) fL Neut # (Auto) 7.7 H (1.5-6.6) 10^3/uL Lymph # (Auto) 0.7 L (1.5-3.5) 10^3/uL [place] # (Auto) 1.0 (0.0-1.0) 10^3/uL Eos # (Auto) 0.1 (0.0-0.7) 10^3/uL Baso # (Auto) 0.0 (0.0-0.1) 10^3/uL Absolute Nucleated RBC 0.00 x10^3/uL Nucleated RBC % 0.0 /100WBC Sodium 140 (135-145) mmol/L Potassium 4.1 (3.5-5.0) mmol/L Chloride 104 (101-111) mmol/L Carbon Dioxide 27 (21-32) mmol/L Anion Gap 9.0 (6-13) BUN 25 H (6-20) mg/dL Creatinine 1.2 (0.6-1.2) mg/dL Estimated GFR (MDRD) 58 L (>89) Glucose 93 (70-100) mg/dL Calcium 8.4 L (8.5-10.3) mg/dL ABX Reporting Has patient been on IV antibiotics over the past 48 hours?: Yes Sepsis Event Note (H) - Evaluation Current Stage of Sepsis: Ruled out Assessment/Plan - Problem List (1) Acute respiratory failure with hypoxia Impression: 05/05 pt's sat is 97% on 2 liter of O2, will gradually wane off O2. pt did not take O2 at home. Sputum culture reveal unremarkable. continue antibiotics Levaquin continue home meds Pulmicort and atrovent PRN 05/04 pt feel some better than yesterday. 94% sats on 2 liter of O2. hypoxia is likely caused by pneumonia continue antibiotics Levaquin Muscix sputum culture Resume home Pulmicort and atrovent (2) Pneumonia Conclusion/Plan: 05/05 WBC is down to normal. sat is up to 97% sat on 2 liter of O2 continue Levaquin CTA reveals has pneumonia on right upper and low lobes continue levaquin 750mg IV q48 hrs (3) Syncope and collapse Conclusion/Plan: 05/04 ECHO reveals normal systolic EF with mild abnormal right ventricular pressure, but pt has 53 mmHG RVSP, pulmonary HTN is likely. EKG reveals SR, it seems pt's syncope is caused by hypoxia with pneumonia treat underline pneumonia with antibiotics tele and vital monitor fall precaution (4) Hypothyroid Conclusion/Plan: 05/04 check TSH, continue synthroid COntinue synthroid (5) Depression Conclusion/Plan: 05/04 stable On paroxetine (6) GERD (gastroesophageal reflux disease) Conclusion/Plan: Protonix ordered (7) acute kidney injury 05/05 significant improved. today Creatinine is 1.2 from previous 1,5 continue gently hydration, and precaution of fluid overload. pt has increased creatinine to 1.7 at admission. pt has 1.2 creatinine in the previous admission. Today his creatinine is 1.5, slight improved. continue gently hydration, hold nephotoxical agent lab monitor
[2019-05-05] MEDS ORDERED: SODIUM CHLORIDE 0.9% 1,000 ML IV SCH ×2 (17:00)
[2019-05-05] MEDS ORDERED: levoFLOXacin 750 MG/150 ML 750 MG/150 ML BAG IV SCH (18:00)
[2019-05-05] MEDS: oxyCODONE 5 MG TABLET PO PRN (23:58)
[2019-05-06] MEDS: SODIUM CHLORIDE FLUSH 0.9% 10 ML SYRINGE IVP SCH ×4 (00:01→23:28)
[2019-05-06] MEDS: BUDESONIDE 0.5 MG/2 ML NEB INH SCH ×2 (04:05→04:06)
[2019-05-06 05:22] LABS: BASOPHILS % (AUTO) 0.1 %; EOSINOPHILS # (AUTO) 0.1 10^3/uL (0.0-0.7); EOSINOPHILS % (AUTO) 1.3 %; HGB - HEMOGLOBIN 9.7 g/dL (14.0-18.0); LYMPHOCYTES # (AUTO) 0.5 10^3/uL (1.5-3.5); LYMPHOCYTES % (AUTO) 5.8 %; MEAN CORPUSCULAR HEMOGLOBIN 30.9 pg (27.0-31.0); MEAN CORPUSCULAR HGB CONC 30.9 g/dL (32.0-36.0); MEAN PLATELET VOLUME 11.4 fL (7.4-11.4); MONOCYTES % (AUTO) 11.1 %; NEUTROPHILS # (AUTO) 7.4 10^3/uL (1.5-6.6); NEUTROPHILS % (AUTO) 81.3 %; PLT - PLATELET COUNT 188 10^3/uL (130-450); RED BLOOD COUNT 3.14 10^6/uL (4.70-6.10); RED CELL DISTRIBUTION WIDTH 14.3 % (12.0-15.0); WHITE BLOOD COUNT 9.1 x10^3/uL (4.8-10.8)
[2019-05-06] MEDS: PANTOPRAZOLE 40 MG TABLET PO SCH (06:15)
[2019-05-06] MEDS: LEVOTHYROXINE 25 MCG TABLET PO SCH (06:15)
[2019-05-06] MEDS: guaiFENesin 600 MG TABLET PO SCH ×2 (08:50→20:52)
[2019-05-06] MEDS: CLOPIDOGREL 75 MG TABLET PO SCH (08:50)
[2019-05-06] MEDS: POLYETHYLENE GLYCOL 3350 17 GM PACKET PO SCH (08:50)
[2019-05-06] MEDS: SENNA 8.6 MG TABLET PO SCH (08:50)
[2019-05-06] MEDS ORDERED: LOSARTAN 50 MG TABLET PO SCH ×2 (09:00)
--- NOTE | 2019-05-06 09:19 | XRAY Report ---
Reason: cough, SOB Procedure Date: 05/06/2019 Accession Number: [id number] / [id number] Procedure: XR - Chest 1 View X-Ray CPT Code: 45982 FULL RESULT: EXAM: CHEST RADIOGRAPHY EXAM DATE: 05/06/2019 08:34 AM. CLINICAL HISTORY: Cough and shortness of breath. COMPARISON: CHEST 2 VIEW 04/14/2019 12:38 PM. TECHNIQUE: 1 view. FINDINGS: Lungs/Pleura: The right diaphragmatic silhouette is asymmetrically elevated by 7.7 cm compared to the left as before. Some adjacent right base atelectasis likely present. New groundglass opacity has developed in the right upper chest suggestive of consolidation. The left hemithorax is clear with the exception of some linear opacities at the left base. No effusions or pneumothorax evident. Mediastinum: Within exam limitations, the cardiomediastinal contour is normal. Other: Sternotomy wires overlie the midline as well as an aortic valvular prosthesis. IMPRESSION: 1. New opacity in the right upper chest consistent with consolidation/pneumonia. 2. Persistently elevated right hemidiaphragm represent eventration or phrenic nerve paralysis. Adjacent atelectasis present as before. RADIA
[2019-05-06] MEDS ORDERED: IPRATROPIUM/ALBUTEROL 3 ML NEB INH PRN (10:14)
[2019-05-06] MEDS ORDERED: ALBUTEROL NEB 2.5 MG/3 ML INH PRN (10:15)
[2019-05-06] MEDS: CEFEPIME 1 GM in SODIUM CHLORIDE 0.9% MINIBAG 100 ML IV SCH ×2 (10:29→18:51)
[2019-05-06] MEDS ORDERED: VANCOMYCIN INJ 1 GM, VANCOMYCIN INJ 500 MG in SODIUM CHLORIDE 0.9% 500 ML IV ONE (11:00)
[2019-05-06] MEDS: SODIUM CHLORIDE FLUSH 0.9% 10 ML SYRINGE IVP PRN ×3 (11:04→19:07)
[2019-05-06] MEDS: hydrALAZINE INJ 20 MG/ML VIAL IVP PRN ×2 (11:33→19:06)
--- NOTE | 2019-05-06 12:03 | PROVIDER PROGRESS NOTE ---
Subjective - Prog Note Date Prog Note Date: 05/06/19 - Subjective Pt reports feeling: Worse Subjective: nurse report pt is unsteady to walk. pt still present hypoxia on room air. CXR reveals pt new opacity in the right upper chest consistent with consolida tion/pneumonia. pt's BP also significantly increase. pt denies headache, chest pain, fever, chill. Current Medications - Current Medications Current Medications: Active Medications Acetaminophen (Tylenol) 650 mg PO Q6HR PRN PRN Reason: Pain 1 to 4 Last Admin: 05/05/19 14:27 Dose: 650 mg Albuterol () 2.5 mg INH RTQ4H PRN PRN Reason: Wheezing Albuterol/Ipratropium (Duoneb) 3 ml INH RTQID PRN PRN Reason: Shortness of Air/Wheezing Clopidogrel Bisulfate (Plavix) 75 mg PO DAILY [facility] Last Admin: 05/06/19 08:50 Dose: 75 mg Guaifenesin (Mucinex) 600 mg PO BID [facility] Last Admin: 05/06/19 08:50 Dose: 600 mg Hydralazine HCl (Apresoline Inj) 10 mg IVP QID PRN PRN Reason: Hypertensive Emergency Last Admin: 05/06/19 11:33 Dose: 10 mg Cefepime HCl 1 gm/ Sodium (Chloride) 100 mls @ 200 mls/hr IV Q8H [facility] Last Admin: 05/06/19 10:29 Dose: 200 mls/hr Vancomycin HCl 1 gm/Vancomycin HCl 500 mg/ Sodium Chloride 500 mls @ 250 mls/hr IV ONCE ONE Stop: 05/06/19 12:59 Last Admin: 05/06/19 11:03 Dose: 250 mls/hr Vancomycin HCl 1 gm/ Sodium (Chloride) 250 mls @ 166.667 mls/hr IV Q12H [facility] Levothyroxine Sodium (Synthroid) 50 mcg PO 0700 [facility] Last Admin: 05/06/19 06:15 Dose: 50 mcg Losartan Potassium (Cozaar) 50 mg PO DAILY [facility] Last Admin: 05/06/19 08:50 Dose: 50 mg Ondansetron HCl (Zofran Odt) 4 mg TL Q6HR PRN PRN Reason: Nausea / Vomiting Pantoprazole Sodium (Protonix) 40 mg PO QDAC [facility] Last Admin: 05/06/19 06:15 Dose: 40 mg Polyethylene Glycol (Miralax) 17 gm PO DAILY [facility] Last Admin: 05/06/19 08:50 Dose: 17 gm Senna (Senokot) 8.6 - 17.2 mg PO DAILY [facility] Last Admin: 05/06/19 08:50 Dose: 8.6 mg Sodium Chloride (Normal Saline Flush 0.9%) 10 ml IVP PRN PRN PRN Reason: NEEDED PER PROVIDER ORDERS Last Admin: 05/06/19 11:33 Dose: 10 ml Sodium Chloride (Normal Saline Flush 0.9%) 10 ml IVP 0100,0900,1700 [facility] Last Admin: 05/06/19 10:28 Dose: 10 ml Cholecalciferol (Vitamin D3) [Vitamin D3] 1,000 units PO DAILY 12/18/16 Clopidogrel Bisulfate [Plavix] 75 mg PO DAILY 12/18/16 Losartan [Cozaar] 12.5 mg PO DAILY 12/18/16 Aspirin/Caffeine [Back-Body Pain 500-32.5MG Cplt] 2 tab PO DAILY PRN 04/14/19 Celecoxib [CeleBREX] 200 mg PO DAILY PRN 04/14/19 PARoxetine HCl [Paroxetine HCl] 20 mg PO DAILY 04/14/19 Prednisone 5 mg PO DAILY 04/14/19 diazePAM [Diazepam] 2.5 mg PO QPM PRN 04/14/19 Fluticasone [Flonase] 2 sprays AMY DAILY 05/04/19 Levothyroxine Sodium 50 mcg PO DAILY 05/04/19 Multivitamin [Multivitamins] 1 tab PO DAILY 05/04/19 Objective - Vital Signs/Intake & Output Reviewed Vital Signs: Yes Vital Signs: Vital Signs x48h Temp Pulse Pulse Pulse Pulse Resp BP 05/06/19 11:59 82 05/06/19 11:45 77 05/06/19 11:40 78 05/06/19 11:35 85 05/06/19 11:33 199/99 H 05/06/19 11:29 84 05/06/19 11:27 17 05/06/19 10:00 88 78 05/06/19 08:32 37.3 C 78 17 05/06/19 05:20 77 83 81 05/06/19 05:18 37.3 C 78 18 BP BP BP BP Pulse Ox 05/06/19 11:59 141/69 H 05/06/19 11:45 144/71 H 05/06/19 11:40 153/64 H 05/06/19 11:35 165/102 H 05/06/19 11:33 05/06/19 11:29 199/99 H 05/06/19 11:27 94 05/06/19 10:00 189/102 H 188/83 H 05/06/19 08:32 168/73 H 93 05/06/19 05:20 172/80 H 154/73 H 176/75 H 05/06/19 05:18 137/55 H 90 L Intake & Output: Intake & Output 05/03/19 05/04/19 05/05/19 05/06/19 23:59 23:59 23:59 23:59 Intake Total 1200 2903.333 1780 260 Output Total 150 300 200 Balance 1200 2753.333 1480 60 - Objective General Appearance: positive: No acute distress, Alert. negative: Lethargic Eyes Bilateral: positive: Normal inspection, PERRL, No lid inflammation, Conjunctivae nml ENT: positive: ENT inspection nml, Pharynx nml, No signs of dehydration. negative: Purulent nasal drainage, Pharyngeal erythema, Oral lesions Neck: positive: Nml inspection, Thyroid nml, No JVD, Trachea midline. negative: Thyromegaly, Lymphadenopathy (R), Lymphadenopathy (L), Stiff neck, Swelling/bruising, Tracheal deviation Respiratory: positive: Chest non-tender, No respiratory distress, Rhonchi. negative: Wheezes, Rales Cardiovascular: positive: Regular rate & rhythm, No murmur, No gallop. negative: Irregularly irregular, Extrasystoles, Tachycardia, Bradycardia, JVD present, Systolic murmur, Diastolic murmur Peripheral Pulses: 2+ Radial (R), 2+ Radial (L), 2+ Dorsalis pedis (R), 2+ Dorsalis pedis (L) Abdomen: positive: Non-tender, No organomegaly, Nml bowel sounds, No distention. negative: Tenderness, Guarding, Rebound Back: positive: Nml inspection. negative: CVA tenderness (R), CVA tenderness (L) Skin: positive: Color nml, No rash, Warm, Dry. negative: Cyanosis, Diaphoresis, Pallor Extremities: positive: Non-tender, Full ROM, Nml appearance. negative: Calf tenderness, Joint swelling, Juan Luis's sign/cords Neurologic/Psychiatric: positive: Oriented x3, Sensation nml, Mood/affect nml. negative: Weakness, Sensory loss, Facial droop, Slurred/abnml speech, Depressed mood/affect - Lab Results Fish Bones: 05/06/19 05:13 05/06/19 05:13 Other Labs: Lab Results x24hrs 05/06/19 05/06/19 05/06/19 Range/Units 05:13 05:13 05:13 WBC 9.1 (4.8-10.8) x10^3/uL RBC 3.14 L (4.70-6.10) 10^6/uL Hgb 9.7 L (14.0-18.0) g/dL Hct 31.4 L (42.0-52.0) % MCV 100.0 H (80.0-94.0) fL MCH 30.9 (27.0-31.0) pg MCHC 30.9 L (32.0-36.0) g/dL RDW 14.3 (12.0-15.0) % Plt Count 188 (130-450) 10^3/uL MPV 11.4 (7.4-11.4) fL Neut # (Auto) 7.4 H (1.5-6.6) 10^3/uL Lymph # (Auto) 0.5 L (1.5-3.5) 10^3/uL [place] # (Auto) 1.0 (0.0-1.0) 10^3/uL Eos # (Auto) 0.1 (0.0-0.7) 10^3/uL Baso # (Auto) 0.0 (0.0-0.1) 10^3/uL Absolute Nucleated RBC 0.00 x10^3/uL Nucleated RBC % 0.0 /100WBC Sodium 139 (135-145) mmol/L Potassium 3.9 (3.5-5.0) mmol/L Chloride 104 (101-111) mmol/L Carbon Dioxide 27 (21-32) mmol/L Anion Gap 8.0 (6-13) BUN 15 (6-20) mg/dL Creatinine 1.0 (0.6-1.2) mg/dL Estimated GFR (MDRD) 71 L (>89) Glucose 105 H (70-100) mg/dL Calcium 8.0 L (8.5-10.3) mg/dL TSH 5.12 (0.34-5.60) uIU/mL ABX Reporting Has patient been on IV antibiotics over the past 48 hours?: Yes Sepsis Event Note (H) - Evaluation Current Stage of Sepsis: Ruled out Assessment/Plan - Problem List (1) Acute respiratory failure with hypoxia Impression: 05/06 pt has 94% on 2 liter of O2, slight worsen from yesterday. pt still present right upper lobe pneumonia, since it is worsening switch new antibiotics Cefepime and vancomycin continue supplement O2 continue breath treatment 05/05 pt's sat is 97% on 2 liter of O2, will gradually wane off O2. pt did not take O2 at home. Sputum culture reveal unremarkable. continue antibiotics Levaquin continue home meds Pulmicort and atrovent PRN 05/04 pt feel some better than yesterday. 94% sats on 2 liter of O2. hypoxia is likely caused by pneumonia continue antibiotics Levaquin Muscix sputum culture Resume home Pulmicort and atrovent (2) Pneumonia Conclusion/Plan: 05/06 pt still present right upper lobe pneumonia, since it is worsening, pt need 2 liter O2 to remain 94% sats switch new antibiotics Cefepime and vancomycin 05/05 WBC is down to normal. sat is up to 97% sat on 2 liter of O2 continue Levaquin CTA reveals has pneumonia on right upper and low lobes continue levaquin 750mg IV q48 hrs (3) Syncope and collapse Conclusion/Plan: 05/04 ECHO reveals normal systolic EF with mild abnormal right ventricular pressure, but pt has 53 mmHG RVSP, pulmonary HTN is likely. EKG reveals SR, it seems pt's syncope is caused by hypoxia with pneumonia treat underline pneumonia with antibiotics tele and vital monitor fall precaution (4) Hypothyroid Conclusion/Plan: 05/04 check TSH, continue synthroid COntinue synthroid (5) Depression Conclusion/Plan: 05/04 stable On paroxetine (6) GERD (gastroesophageal reflux disease) Conclusion/Plan: Protonix ordered (7) acute kidney injury 05/06 continue improved, creatinine is 1.0 now, continue gently hydration 05/05 significant improved. today Creatinine is 1.2 from previous 1,5 continue gently hydration, and precaution of fluid overload. pt has increased creatinine to 1.7 at admission. pt has 1.2 creatinine in the previous admission. Today his creatinine is 1.5, slight improved. continue gently hydration, hold nephotoxical agent lab monitor (8) HTN pt's SBP is up 199. increase his home BP meds Losantar from 12.5 to 50 mg continue hydralazine PRN (9) weakness with unsteady gait nurse report has some weakness and unsteady gait consult with PT fall precaution
[2019-05-06] MEDS ORDERED: levoFLOXacin 750 MG/150 ML 750 MG/150 ML BAG IV SCH (19:00)
[2019-05-06] MEDS: VANCOMYCIN INJ 1 GM in SODIUM CHLORIDE 0.9% 250 ML IV SCH (23:28)
[2019-05-07] MEDS: CEFEPIME 1 GM in SODIUM CHLORIDE 0.9% MINIBAG 100 ML IV SCH ×3 (02:34→17:56)
[2019-05-07] MEDS: PANTOPRAZOLE 40 MG TABLET PO SCH (06:48)
[2019-05-07] MEDS: LEVOTHYROXINE 25 MCG TABLET PO SCH (06:48)
[2019-05-07 08:06] LABS: BASOPHILS % (AUTO) 0.3 %; EOSINOPHILS # (AUTO) 0.1 10^3/uL (0.0-0.7); EOSINOPHILS % (AUTO) 0.9 %; HGB - HEMOGLOBIN 11.2 g/dL (14.0-18.0); LYMPHOCYTES # (AUTO) 0.6 10^3/uL (1.5-3.5); LYMPHOCYTES % (AUTO) 5.7 %; MEAN CORPUSCULAR HEMOGLOBIN 31.4 pg (27.0-31.0); MEAN CORPUSCULAR HGB CONC 31.8 g/dL (32.0-36.0); MEAN CORPUSCULAR VOLUME 98.6 fL (80.0-94.0); MEAN PLATELET VOLUME 11.3 fL (7.4-11.4); MONOCYTES # (AUTO) 1.4 10^3/uL (0.0-1.0); MONOCYTES % (AUTO) 12.9 %; NEUTROPHILS # (AUTO) 8.6 10^3/uL (1.5-6.6); NEUTROPHILS % (AUTO) 79.7 %; PLT - PLATELET COUNT 217 10^3/uL (130-450); RED BLOOD COUNT 3.57 10^6/uL (4.70-6.10); RED CELL DISTRIBUTION WIDTH 13.9 % (12.0-15.0); WHITE BLOOD COUNT 10.8 x10^3/uL (4.8-10.8)
[2019-05-07 08:16] LABS: CALCIUM 8.7 mg/dL (8.5-10.3)
[2019-05-07] MEDS: DOCUSATE SODIUM 250 MG CAPSULE PO SCH (09:01)
[2019-05-07] MEDS: POLYETHYLENE GLYCOL 3350 17 GM PACKET PO SCH (09:02)
[2019-05-07] MEDS: SENNA 8.6 MG TABLET PO SCH (09:02)
[2019-05-07] MEDS: LOSARTAN 50 MG TABLET PO SCH (09:18)
[2019-05-07] MEDS: LACTOBACILLUS RHAMNOSUS GG CAPSULE PO SCH (09:18)
[2019-05-07] MEDS: ENOXAPARIN 40 MG/0.4 ML SYRINGE SUBQ SCH (09:18)
[2019-05-07] MEDS: guaiFENesin 600 MG TABLET PO SCH ×2 (09:18→20:52)
[2019-05-07] MEDS: CLOPIDOGREL 75 MG TABLET PO SCH (09:18)
[2019-05-07] MEDS: SODIUM CHLORIDE FLUSH 0.9% 10 ML SYRINGE IVP SCH ×2 (09:19→17:56)
[2019-05-07] MEDS: SODIUM CHLORIDE FLUSH 0.9% 10 ML SYRINGE IVP PRN ×2 (10:24→11:42)
[2019-05-07] MEDS ORDERED: diazePAM 5 MG TABLET PO PRN (10:57)
[2019-05-07] MEDS: LIDOCAINE PATCH 5% TOP SCH (11:42)
[2019-05-07] MEDS: PARoxetine 10 MG TABLET PO SCH (11:42)
[2019-05-07] MEDS: CELECOXIB 100 MG CAPSULE PO PRN (11:42)
[2019-05-07] MEDS: VANCOMYCIN INJ 1 GM in SODIUM CHLORIDE 0.9% 250 ML IV SCH (11:43)
--- NOTE | 2019-05-07 16:40 | PROVIDER PROGRESS NOTE ---
Subjective - Prog Note Date Prog Note Date: 05/07/19 - Subjective Pt reports feeling: Improved Subjective: pt report he feel better than yesterday. pt has elevated temperature 37.8, 37.6, still complaint of lots of cough, and feel some weakness. pt denies chest pain, headache. pt's Sats drop quickly on his exertion per PT report, pt is not O2 dependent in the home prior to admission. Likely pt need O2 supplement when d/c pt Current Medications - Current Medications Current Medications: Active Medications Acetaminophen (Tylenol) 650 mg PO Q6HR PRN PRN Reason: Pain 1 to 4 Last Admin: 05/05/19 14:27 Dose: 650 mg Albuterol () 2.5 mg INH RTQ4H PRN PRN Reason: Wheezing Albuterol/Ipratropium (Duoneb) 3 ml INH RTQID PRN PRN Reason: Shortness of Air/Wheezing Celecoxib (Celebrex) 200 mg PO DAILY PRN PRN Reason: PAIN Last Admin: 05/07/19 11:42 Dose: 200 mg Clopidogrel Bisulfate (Plavix) 75 mg PO DAILY [facility] Last Admin: 05/07/19 09:18 Dose: 75 mg Diazepam (Valium) 2.5 mg PO QPM PRN PRN Reason: not provided Docusate Sodium (Colace 250mg Capsule) 250 - 500 mg PO DAILY [facility] Last Admin: 05/07/19 09:01 Dose: Not Given Enoxaparin Sodium (Lovenox) 40 mg SUBQ DAILY [facility] Last Admin: 05/07/19 09:18 Dose: 40 mg Guaifenesin (Mucinex) 600 mg PO BID [facility] Last Admin: 05/07/19 09:18 Dose: 600 mg Hydralazine HCl (Apresoline Inj) 10 mg IVP QID PRN PRN Reason: Hypertensive Emergency Last Admin: 05/06/19 19:06 Dose: 10 mg Cefepime HCl 1 gm/ Sodium (Chloride) 100 mls @ 200 mls/hr IV Q8H [facility] Last Infusion: 05/07/19 10:55 Dose: Infused Vancomycin HCl 1 gm/ Sodium (Chloride) 250 mls @ 166.667 mls/hr IV Q12H [facility] Last Infusion: 05/07/19 13:46 Dose: Infused Lactobacillus Rhamnosus (Culturelle) 1 cap PO DAILY [facility] Last Admin: 05/07/19 09:18 Dose: 1 cap Levothyroxine Sodium (Synthroid) 50 mcg PO 0700 [facility] Last Admin: 05/07/19 06:48 Dose: 50 mcg Lidocaine (Lidoderm Patch) 1 patch TOP DAILY [facility] Last Admin: 05/07/19 11:42 Dose: 1 patch Losartan Potassium (Cozaar) 100 mg PO DAILY [facility] Last Admin: 05/07/19 09:18 Dose: 100 mg Ondansetron HCl (Zofran Odt) 4 mg TL Q6HR PRN PRN Reason: Nausea / Vomiting Pantoprazole Sodium (Protonix) 40 mg PO QDAC [facility] Last Admin: 05/07/19 06:48 Dose: 40 mg Paroxetine HCl (Paxil) 20 mg PO DAILY [facility] Last Admin: 05/07/19 11:42 Dose: 20 mg Polyethylene Glycol (Miralax) 17 gm PO DAILY [facility] Last Admin: 05/07/19 09:02 Dose: Not Given Senna (Senokot) 8.6 - 17.2 mg PO DAILY [facility] Last Admin: 05/07/19 09:02 Dose: Not Given Sodium Chloride (Normal Saline Flush 0.9%) 10 ml IVP PRN PRN PRN Reason: NEEDED PER PROVIDER ORDERS Last Admin: 05/07/19 11:42 Dose: 10 ml Sodium Chloride (Normal Saline Flush 0.9%) 10 ml IVP 0100,0900,1700 [facility] Last Admin: 05/07/19 09:19 Dose: 10 ml Cholecalciferol (Vitamin D3) [Vitamin D3] 1,000 units PO DAILY 12/18/16 Clopidogrel Bisulfate [Plavix] 75 mg PO DAILY 12/18/16 Losartan [Cozaar] 12.5 mg PO DAILY 12/18/16 Aspirin/Caffeine [Back-Body Pain 500-32.5MG Cplt] 2 tab PO DAILY PRN 04/14/19 Celecoxib [CeleBREX] 200 mg PO DAILY PRN 04/14/19 PARoxetine HCl [Paroxetine HCl] 20 mg PO DAILY 04/14/19 Prednisone 5 mg PO DAILY 04/14/19 diazePAM [Diazepam] 2.5 mg PO QPM PRN 04/14/19 Fluticasone [Flonase] 2 sprays AMY DAILY 05/04/19 Levothyroxine Sodium 50 mcg PO DAILY 05/04/19 Multivitamin [Multivitamins] 1 tab PO DAILY 05/04/19 Objective - Vital Signs/Intake & Output Reviewed Vital Signs: Yes Vital Signs: Vital Signs x48h Temp Pulse Resp BP Pulse Ox 05/07/19 15:45 37.3 C 74 18 119/83 H 96 05/07/19 13:20 75 18 103/53 L 94 05/07/19 11:21 165/74 H 96 05/07/19 11:03 86 171/78 H 92 05/07/19 09:00 36.8 C 84 18 138/69 H 95 Intake & Output: Intake & Output 05/04/19 05/05/19 05/06/19 05/07/19 23:59 23:59 23:59 23:59 Intake Total 2903.333 1780 2550 1880 Output Total 150 300 200 Balance 2753.333 1480 2350 1880 - Objective General Appearance: positive: No acute distress, Alert. negative: Lethargic Eyes Bilateral: positive: Normal inspection, PERRL, No lid inflammation, Conjunctivae nml ENT: positive: ENT inspection nml, Pharynx nml, No signs of dehydration. negative: Purulent nasal drainage, Pharyngeal erythema, Oral lesions Neck: positive: Nml inspection, Thyroid nml, No JVD, Trachea midline. negative: Thyromegaly, Lymphadenopathy (R), Lymphadenopathy (L), Stiff neck, Swelling/bruising, Tracheal deviation Respiratory: positive: Chest non-tender, No respiratory distress. negative: Breath sounds nml, Wheezes, Rales, Rhonchi Cardiovascular: positive: Regular rate & rhythm, No murmur, No gallop. negative: Irregularly irregular, Extrasystoles, Tachycardia, Bradycardia, JVD present, Systolic murmur, Diastolic murmur Peripheral Pulses: 2+ Radial (R), 2+ Radial (L), 2+ Dorsalis pedis (R), 2+ Dorsalis pedis (L) Abdomen: positive: Non-tender, No organomegaly, Nml bowel sounds, No distention. negative: Tenderness, Guarding, Rebound Back: positive: Nml inspection. negative: CVA tenderness (R), CVA tenderness (L) Skin: positive: Color nml, No rash, Warm, Dry. negative: Cyanosis, Diaphoresis, Pallor Extremities: positive: Non-tender, Nml appearance. negative: Calf tenderness, Joint swelling, Juan Luis's sign/cords Neurologic/Psychiatric: positive: Oriented x3, Sensation nml, Mood/affect nml. negative: Weakness, Sensory loss, Facial droop, Slurred/abnml speech, Depressed mood/affect - Lab Results Fish Bones: 05/07/19 08:00 05/07/19 08:00 Other Labs: Lab Results x24hrs 05/07/19 05/07/19 Range/Units 08:00 08:00 WBC 10.8 (4.8-10.8) x10^3/uL RBC 3.57 L (4.70-6.10) 10^6/uL Hgb 11.2 L (14.0-18.0) g/dL Hct 35.2 L (42.0-52.0) % MCV 98.6 H (80.0-94.0) fL MCH 31.4 H (27.0-31.0) pg MCHC 31.8 L (32.0-36.0) g/dL RDW 13.9 (12.0-15.0) % Plt Count 217 (130-450) 10^3/uL MPV 11.3 (7.4-11.4) fL Neut # (Auto) 8.6 H (1.5-6.6) 10^3/uL Lymph # (Auto) 0.6 L (1.5-3.5) 10^3/uL [place] # (Auto) 1.4 H (0.0-1.0) 10^3/uL Eos # (Auto) 0.1 (0.0-0.7) 10^3/uL Baso # (Auto) 0.0 (0.0-0.1) 10^3/uL Absolute Nucleated RBC 0.00 x10^3/uL Nucleated RBC % 0.0 /100WBC Sodium 138 (135-145) mmol/L Potassium 3.9 (3.5-5.0) mmol/L Chloride 101 (101-111) mmol/L Carbon Dioxide 25 (21-32) mmol/L Anion Gap 12.0 (6-13) BUN 11 (6-20) mg/dL Creatinine 1.0 (0.6-1.2) mg/dL Estimated GFR (MDRD) 71 L (>89) Glucose 96 (70-100) mg/dL Calcium 8.7 (8.5-10.3) mg/dL ABX Reporting Has patient been on IV antibiotics over the past 48 hours?: Yes Sepsis Event Note (H) - Evaluation Current Stage of Sepsis: Ruled out Assessment/Plan - Problem List (1) Acute respiratory failure with hypoxia Impression: 05/07 pt's sat drop quickly when he is on exertion, he need supplement of O2 likely when pt d/c pt has 96% sats on 2 liter of O2. pt report he feel better after switched to new antibiotics. continue antibiotics, supplement O2 as needed 05/06 pt has 94% on 2 liter of O2, slight worsen from yesterday. pt still present right upper lobe pneumonia, since it is worsening switch new antibiotics Cefepime and vancomycin continue supplement O2 continue breath treatment 05/05 pt's sat is 97% on 2 liter of O2, will gradually wane off O2. pt did not take O2 at home. Sputum culture reveal unremarkable. continue antibiotics Levaquin continue home meds Pulmicort and atrovent PRN 05/04 pt feel some better than yesterday. 94% sats on 2 liter of O2. hypoxia is likely caused by pneumonia continue antibiotics Levaquin Muscix sputum culture Resume home Pulmicort and atrovent (2) Pneumonia Conclusion/Plan: 05/07 pt felt better on his breath, 96% sats on 2 liter of O2 now. pt had 37.8 and 37.6 temperature then his temperature is down to normal continue antibiotics 05/06 pt still present right upper lobe pneumonia, since it is worsening, pt need 2 liter O2 to remain 94% sats switch new antibiotics Cefepime and vancomycin 05/05 WBC is down to normal. sat is up to 97% sat on 2 liter of O2 continue Levaquin CTA reveals has pneumonia on right upper and low lobes continue levaquin 750mg IV q48 hrs (3) Syncope and collapse Conclusion/Plan: 05/07 no more syncope or collapse 05/04 ECHO reveals normal systolic EF with mild abnormal right ventricular pressur e, but pt has 53 mmHG RVSP, pulmonary HTN is likely. EKG reveals SR, it seems pt's syncope is caused by hypoxia with pneumonia treat underline pneumonia with antibiotics tele and vital monitor fall precaution (4) Hypothyroid Conclusion/Plan: normal TSH continue synthroid 05/04 check TSH, continue synthroid COntinue synthroid (5) Depression Conclusion/Plan: 05/04 stable On paroxetine (6) GERD (gastroesophageal reflux disease) Conclusion/Plan: Protonix ordered (7) acute kidney injury 05/07 improved and stable 05/06 continue improved, creatinine is 1.0 now, continue gently hydration 05/05 significant improved. today Creatinine is 1.2 from previous 1,5 continue gently hydration, and precaution of fluid overload. pt has increased creatinine to 1.7 at admission. pt has 1.2 creatinine in the previous admission. Today his creatinine is 1.5, slight improved. continue gently hydration, hold nephotoxical agent lab monitor (8) HTN pt's SBP is up 199. increase his home BP meds Losantar from 12.5 to 50 mg continue hydralazine PRN (9) weakness with unsteady gait 05/07 continue PT, will followup PT's recommendation nurse report has some weakness and unsteady gait consult with PT fall precaution (10) COPD pt decline to have COPD hx, pt and his state his PCP did not think he has COPD, although pt has long time hx of cigarette smoker. albuterol and Duoneb PRN
[2019-05-07] MEDS: oxyCODONE 5 MG TABLET PO PRN (20:17)
[2019-05-08] MEDS: oxyCODONE 5 MG TABLET PO PRN ×3 (00:26→12:51)
[2019-05-08] MEDS: VANCOMYCIN INJ 1 GM in SODIUM CHLORIDE 0.9% 250 ML IV SCH (00:29)
[2019-05-08] MEDS: SODIUM CHLORIDE FLUSH 0.9% 10 ML SYRINGE IVP SCH ×2 (00:38→09:18)
[2019-05-08] MEDS: SODIUM CHLORIDE FLUSH 0.9% 10 ML SYRINGE IVP PRN ×2 (00:42→03:18)
[2019-05-08] MEDS: CEFEPIME 1 GM in SODIUM CHLORIDE 0.9% MINIBAG 100 ML IV SCH ×2 (02:13→09:17)
[2019-05-08 05:55] LABS: BASOPHILS % (AUTO) 0.4 %; EOSINOPHILS % (AUTO) 1.9 %; HGB - HEMOGLOBIN 11.8 g/dL (14.0-18.0); LYMPHOCYTES % (AUTO) 9.3 %; MEAN CORPUSCULAR HEMOGLOBIN 30.1 pg (27.0-31.0); MEAN CORPUSCULAR HGB CONC 30.4 g/dL (32.0-36.0); MEAN PLATELET VOLUME 11.6 fL (7.4-11.4); NEUTROPHILS % (AUTO) 70.9 %; PLT - PLATELET COUNT 235 10^3/uL (130-450); RED BLOOD COUNT 3.92 10^6/uL (4.70-6.10); RED CELL DISTRIBUTION WIDTH 13.9 % (12.0-15.0); WHITE BLOOD COUNT 9.7 x10^3/uL (4.8-10.8)
[2019-05-08 06:03] LABS: ABNORMAL LYMPHS % (MANUAL) 0 %; BAND NEUTROPHILS % (MANUAL) 0 %
[2019-05-08 06:05] LABS: CALCIUM 9.1 mg/dL (8.5-10.3); CREATININE 1.2 mg/dL (0.6-1.2)
[2019-05-08] MEDS: LEVOTHYROXINE 25 MCG TABLET PO SCH (06:11)
[2019-05-08] MEDS: PANTOPRAZOLE 40 MG TABLET PO SCH (06:11)
[2019-05-08 06:18] LABS: DIFFERENTIAL COMMENT MANUAL DIFFERENTIAL; EOSINOPHILS # (MANUAL) 0.2 10^3/uL (0-0.7); LYMPHOCYTES # (MANUAL) 1.1 10^3/uL (1.5-3.5); LYMPHOCYTES % (MANUAL) 11 %; MONOCYTES # (MANUAL) 1.4 10^3/uL (0.0-1.0); PLATELET ESTIMATE, MANUAL NORMAL (130-450,000) (NORMAL); PLATELET MORPHOLOGY NORMAL APPEARANCE (NORMAL); RBC MORPHOLOGY (MULTIPLE) NORMAL APPEARANCE (NORMAL)
[2019-05-08] MEDS: LIDOCAINE PATCH 5% TOP SCH (09:15)
[2019-05-08] MEDS: LOSARTAN 50 MG TABLET PO SCH (09:16)
[2019-05-08] MEDS: CLOPIDOGREL 75 MG TABLET PO SCH (09:16)
[2019-05-08] MEDS: LACTOBACILLUS RHAMNOSUS GG CAPSULE PO SCH (09:16)
[2019-05-08] MEDS: CELECOXIB 100 MG CAPSULE PO PRN (09:16)
[2019-05-08] MEDS: POLYETHYLENE GLYCOL 3350 17 GM PACKET PO SCH (09:16)
[2019-05-08] MEDS: PARoxetine 10 MG TABLET PO SCH (09:16)
[2019-05-08] MEDS: DOCUSATE SODIUM 250 MG CAPSULE PO SCH (09:16)
[2019-05-08] MEDS: SENNA 8.6 MG TABLET PO SCH (09:16)
[2019-05-08] MEDS: guaiFENesin 600 MG TABLET PO SCH (09:16)
[2019-05-08] MEDS: ENOXAPARIN 40 MG/0.4 ML SYRINGE SUBQ SCH (09:17)
[2019-05-08] MEDS ORDERED: predniSONE 5 MG TABLET PO SCH (11:00)
[2019-05-08 11:15] LABS: VANCOMYCIN,TROUGH 22.4 ug/mL (10.0-20.0)
[2019-05-08] MEDS ORDERED: SPIRONOLACTONE 25 MG TABLET PO SCH (12:00)
--- NOTE | 2019-05-08 15:20 | Discharge Plan ---
Discharge Plan Problem Reviewed?: Yes Disposition: Home Health Service Condition: Poor Prescriptions: oxyCODONE [Roxicodone] 5 mg PO Q6HR PRN #15 tablet PRN Reason: Pain Levofloxacin [Levaquin] 500 mg PO DAILY #7 tablet Losartan [Cozaar] 50 mg PO DAILY #10 tablet Diet: Regular Activity Restrictions: Activity as Tolerated Shower Restrictions: No (fall precaution) Instruction Topics: Pneumonia, Oxygen Home Use, Levofloxacin tablets, Oxycodone tablets or capsules, Losartan tablets Health Concerns: pneumonia Plan of Treatment: antibiotics Levaquin is prescribed for your treatment course of pneumonia. please followup RT instructions to use home O2 Care Goals: stabilization of pt's medical conditions Assessment: assessment as the above. Additional Instructions or Follow Up instructions: you may followup your PCP in one week, finish your antibiotics course, continue home INH breath treatment as needed, and followup RT instructions to use home O2. Home health PT is arranged for you. Should your symptoms return or worsen, you may present ER or call 911 for help. Follow-Up Care: [facility] - Pulmonary, Home Health - PT No Smoking: If you smoke, Please STOP! Call for help. Follow-up with: Williams Courtney MD [Primary Care Provider] -
[2019-05-08 15:31] VITALS: BP 134/52
--- NOTE | 2019-05-08 15:59 | DISCHARGE SUMMARY ---
Discharge Summary Discharge Date: 05/08/19 Discharging Provider: LAW Primary Care Provider: Sherwin Condition at Discharge: Poor Discharge Disposition: Home Health Service Discharge Facility Name: home - DIAGNOSES Admission Diagnoses: (1) Acute respiratory failure with hypoxia (2) Pneumonia (3) Syncope and collapse (4) Hypothyroid (5) Depression (6) GERD (gastroesophageal reflux disease) Discharge Diagnoses with Status of Each Condition: (1) Acute respiratory failure with hypoxia stable (2) Pneumonia stable, continue antibiotics treatment course (3) Syncope and collapse stable (4) Hypothyroid stable (5) Depression stable (6) GERD (gastroesophageal reflux disease) stable (7) acute kidney injury resolved (8) HTN stable (9) weakness with unsteady gait stable. pt refused to be d/c to SNF (10) COPD stable. pt was hypoxic at rest, with room air O2 sats of 85%. At rest with O2 at 2 lpm NC, her sats improved to 90%. with exertion on 2 lpm his sats were 90% at 40 feet. I am ordering home O2 at 2 lpm via nasal cannula continuously. please titrate for conserving device. - HPI History of Present Illness: refer from Dr. Dean's HPI on 05/03/19 Patient seen on 05/03/19 at 23:00pm Patient is an 83 y/o male who presented to the ED with chief complain of a fall. This happened around 4 am on 05/03/19. He reports getting up from bed to take some aspirin, when he fell backwards hitting his head and neck. He was on the gr ound for 30 minutes before waking up. His called 911 later in the day and he was brought in. It is unclear why so much time went by before his presentation to the ED. At bedside he is resting comfortably but complains of neck pain. He denied chest pain, SARAH, abd pain, n/v/d, fever or chills CT of his head, neck and face were unremarkable. He was noted to be hypoxic with and O2Sat of 77% on nasal canula and 91% on a non-rebreather. He does not use oxygen at home. As a result a CTA of the chest was done which was negative for a PE but was suggestive of pneumonia. Patient was last admitted her on 7/19/19 and treated for pneumonia. He was sent home on Augmentin and Azithromycin which he completed. As a result of his hypoxia and radiologic finding on CT, he was presented for admission. - HOSPITAL COURSE Hospital Course: pt was admitted for evaluation of his fall. All image studies including CT of head, cervical spinal were negative for CTA of the chest was done which was negative for a PE but was suggestive of pneumonia. Pt was treated with an tibiotics. pt was also evaluated and treated by PT. after treatment, pt became 94% sat on 2 liter of O2. Pt was recommended d/c to SNF for his weakness and unsteady but pt refused to be d/c to SNF. Home health PT was arranged to pt. pt is prescribed Levaquin for continuing antibiotic treatment (1) Acute respiratory failure with hypoxia After treatment pt has 94% sat on 2 liter of O2. pt is arranged to have home O2. pt is prescribed antibiotics for finishing the treatment course. pt state he had home INH and meds. he decline new prescription. advise Resume home Pulmicort and atrovent PRN (2) Pneumonia After treatment pt has 94% sat on 2 liter of O2. pt is prescribed antibiotics Levaquin for finishing the treatment course. (3) Syncope and collapse stable. ECHO and EKG reveals unremarkable. syncope likely be combination of his pneumonia and dehydration. pt was evaluated and treated with PT. pt refused to be d/c to SNF. pt is arranged with home health PT (4) Hypothyroid stable, continue home meds (5) Depression stable, continue home meds (6) GERD (gastroesophageal reflux disease) stable, continue home meds (7) acute kidney injury resolved, as his baseline (8) HTN stable, increase his home BP meds Losantar from 12.5 to 50 mg (9) weakness with unsteady gait pt was evaluated and treated with PT. pt refused to be d/c to SNF. pt is arranged with home health PT (10) COPD pt decline INH prescriptions, he state he has meds in home. pt is prescribed Home O2. pt was hypoxic at rest, with room air O2 sats of 85%. At rest with O2 at 2 lpm NC, her sats improved to 90%. with exertion on 2 lpm his sats were 90% at 40 feet. I am ordering home O2 at 2 lpm via nasal cannula continuously. please titrate for conserving device. - ALLERGIES Allergies/Adverse Reactions: Allergies Allergy/AdvReac Type Severity Reaction Status Date / Time Latex, Natural Rubber Allergy respiratory Verified 04/14/19 11:55 distress - MEDICATIONS Home Medications: Ambulatory Orders Medication Instructions Recorded Confirmed Cholecalciferol (Vitamin D3) 1,000 units PO DAILY 12/18/16 05/04/19 [Vitamin D3] Clopidogrel Bisulfate [Plavix] 75 mg PO DAILY 12/18/16 05/04/19 Aspirin/Caffeine [Back-Body Pain 2 tab PO DAILY PRN 04/14/19 04/14/19 500-32.5MG Cplt] Celecoxib [CeleBREX] 200 mg PO DAILY PRN 04/14/19 05/04/19 PARoxetine HCl [Paroxetine HCl] 20 mg PO DAILY 04/14/19 05/04/19 Prednisone 5 mg PO DAILY 04/14/19 05/04/19 diazePAM [Diazepam] 2.5 mg PO QPM PRN 04/14/19 05/04/19 Fluticasone [Flonase] 2 sprays AMY DAILY 05/04/19 05/04/19 Levothyroxine Sodium 50 mcg PO DAILY 05/04/19 05/04/19 Multivitamin [Multivitamins] 1 tab PO DAILY 05/04/19 05/04/19 Levofloxacin [Levaquin] 500 mg PO DAILY #7 tablet 05/08/19 Losartan [Cozaar] 50 mg PO DAILY #10 tablet 05/08/19 oxyCODONE [Roxicodone] 5 mg PO Q6HR PRN #15 tablet 05/08/19 - PHYSICAL EXAM AT DISCHARGE General Appearance: positive: No acute distress, Alert. negative: Lethargic Eyes Bilateral: positive: Normal inspection, PERRL, No lid inflammation, Conjunctivae nml ENT: positive: ENT inspection nml, Pharynx nml, No signs of dehydration. negative: Purulent nasal drainage, Pharyngeal erythema, Oral lesions Neck: positive: Nml inspection, Thyroid nml, No JVD, Trachea midline. negative: Thyromegaly, Lymphadenopathy (R), Lymphadenopathy (L), Stiff neck, Swelling/bruising, Tracheal deviation Respiratory: positive: Chest non-tender, No respiratory distress. negative: Wheezes, Rales, Rhonchi Cardiovascular: positive: Regular rate & rhythm, No murmur, No gallop, Irregularly irregular. negative: Extrasystoles, Tachycardia, Bradycardia, JVD present, Systolic murmur, Diastolic murmur Peripheral Pulses: positive: 2+ Abdomen: positive: Non-tender, No organomegaly, Nml bowel sounds, No distention. negative: Tenderness, Guarding, Rebound Back: positive: Nml inspection. negative: CVA tenderness (R), CVA tenderness (L) Skin: positive: Color nml, No rash, Warm, Dry. negative: Cyanosis, Diaphoresis, Pallor Extremities: positive: Non-tender, Full ROM, Nml appearance. negative: Pedal edema, Calf tenderness, Joint swelling, Juan Luis's sign/cords Neurologic/Psychiatric: positive: Oriented x3, Sensation nml, Mood/affect nml. negative: Weakness, Sensory loss, Facial droop, Slurred/abnml speech, Depressed mood/affect - LABS Result Diagrams: 05/08/19 05:43 05/08/19 05:43 - SEPSIS Current Stage of Sepsis: Ruled out - FOLLOW UP Follow Up: you may followup your PCP in one week, finish your antibiotics course, continue home INH breath treatment as needed, and followup RT instructions to use home O2. Home health PT is arranged for you. Should your symptoms return or worsen, you may present ER or call 911 for help. - TIME SPENT Time Spent in Discharge (Minutes): 60
[2019-05-08] MEDS ORDERED: VANCOMYCIN INJ 1 GM in SODIUM CHLORIDE 0.9% 250 ML IV SCH (18:00)
== END 2019-05-08 16:30 | disposition home health service (06) | DRG 189 ==
LOC: EDUNIT# → ED 18:05 → MS3 20:59 → MS2 05-04 13:21
PROVIDERS: ADMIT Internal Medicine; ATTEND Nurse Practitioner Gerontology
DX: J18.9 Pneumonia, unspecified organism (principal); R09.02 Hypoxemia; S09.90XA Unspecified injury of head, initial encounter; W19.XXXA Unspecified fall, initial encounter; J96.01 Acute respiratory failure with hypoxia; J18.1 Lobar pneumonia, unspecified organism; N17.9 Acute kidney failure, unspecified; F32.1 Major depressive disorder, single episode, moderate; J43.9 Emphysema, unspecified; R55 Syncope and collapse; E03.9 Hypothyroidism, unspecified; K21.9 Gastro-esophageal reflux disease without esophagitis; I10 Essential (primary) hypertension; R26.81 Unsteadiness on feet; S00.12XA Contusion of left eyelid and periocular area, initial encounter; M54.2 Cervicalgia; W18.30XA Fall on same level, unspecified, initial encounter; Y92.003 Bedroom of unspecified non-institutional (private) residence as the place of occurrence of the external cause; L21.9 Seborrheic dermatitis, unspecified; E78.00 Pure hypercholesterolemia, unspecified; G47.30 Sleep apnea, unspecified; R53.83 Other fatigue; I27.20 Pulmonary hypertension, unspecified; I25.10 Atherosclerotic heart disease of native coronary artery without angina pectoris; I73.9 Peripheral vascular disease, unspecified; R01.1 Cardiac murmur, unspecified; G62.9 Polyneuropathy, unspecified; N40.1 Benign prostatic hyperplasia with lower urinary tract symptoms; Z95.2 Presence of prosthetic heart valve; R35.1 Nocturia; J32.9 Chronic sinusitis, unspecified; G89.29 Other chronic pain; M54.9 Dorsalgia, unspecified; H54.7 Unspecified visual loss; H91.90 Unspecified hearing loss, unspecified ear; Z66 Do not resuscitate; Z99.81 Dependence on supplemental oxygen; Z91.81 History of falling; Z79.01 Long term (current) use of anticoagulants; Z79.82 Long term (current) use of aspirin; Z79.52 Long term (current) use of systemic steroids; Z79.51 Long term (current) use of inhaled steroids; Z79.899 Other long term (current) drug therapy; Z87.11 Personal history of peptic ulcer disease; Z86.19 Personal history of other infectious and parasitic diseases; Z85.828 Personal history of other malignant neoplasm of skin; Z87.891 Personal history of nicotine dependence
CPT/HCPCS: 36415; 70450; 70486; 71045; 71275; 72125; 80048; 80053; 80202; 81003; 83605; 83690; 84443; 84550; 85025; 85610; 85730; 87040; 87070; 87077; 87181; 87205; 92610; 93005; 93306; 94640; 94761; 96360; 97116; 97161; 97530; 99284; 99285; A9270; J1650; J3370; J7512; J7626; Q9967; 81001; 87086

== ENCOUNTER 2019-06-03 13:39 | Outpatient (CLI) | payer MEDICARE, OTHER ==
--- NOTE | 2019-06-05 02:48 | XRAY Report ---
Reason: PAIN AND EDEMA Procedure Date: 06/03/2019 Accession Number: [id number] / [id number] Procedure: XR - Foot 3 View RT CPT Code: FULL RESULT: EXAM: RIGHT FOOT RADIOGRAPHY EXAM DATE: 06/03/2019 01:52 PM. CLINICAL HISTORY: PAIN AND EDEMA. COMPARISON: None. TECHNIQUE: 3 views. FINDINGS: Bones: Normal. No fractures or bone lesions. Joints: Severe osteoarthritis of the first metatarsophalangeal joint. Soft Tissues: Soft tissue swelling adjacent to the first metatarsophalangeal joint, which may represent gouty tophus. 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 RADIA
== END 2019-06-03 13:40 | disposition home or self-care (01) ==
LOC: DI 13:39
PROVIDERS: ATTEND Podiatrist
DX: M19.071 Primary osteoarthritis, right ankle and foot (principal)

== ENCOUNTER 2019-06-27 19:29 | Outpatient (CLI) | payer MEDICARE, OTHER | END 2019-06-27 19:30 | disposition critical access hospital (66) | LOC: EMS 19:29 | PROVIDERS: ATTEND Surgery | DX: R09.89 Other specified symptoms and signs involving the circulatory and respiratory systems (principal); T17.298A Other foreign object in pharynx causing other injury, initial encounter | CPT/HCPCS: A0425; A0427 ==

== ENCOUNTER 2019-06-30 11:22 | Outpatient (CLI) | payer MEDICARE, OTHER | END 2019-06-30 11:23 | disposition critical access hospital (66) | LOC: EMS 11:22 | PROVIDERS: ATTEND Surgery | DX: R09.89 Other specified symptoms and signs involving the circulatory and respiratory systems (principal); R41.0 Disorientation, unspecified; R53.1 Weakness | CPT/HCPCS: A0425; A0429 ==

== ENCOUNTER 2019-06-30 11:56 | Emergency (ER) | payer MEDICARE, OTHER ==
--- NOTE | 2019-06-30 12:32 | ED Physician Documentation ---
History of Present Illness - Stated complaint Stated Complaint: WEAKNESS - Chief complaint Chief Complaint: Fever - History obtained from History obtained from: Patient, EMS - History of Present Illness Timing: Today Pain level max: 5 Pain level now: 5 - Additonal information Additional information: 83-year-old male was recently admitted to the hospital for aspiration pneumonia. Sent home last night. States he is feeling worse today and unable to walk. Patient did not wear his oxygen while he was sleeping last night or this morning. Has not been using his walker at home. He was placed on Keflex 500 mg p.o. twice daily for his aspiration pneumonia. Worse with walking. Better with rest. Review of Systems Ten Systems: 10 systems reviewed and negative Constitutional: reports: Fever Ears: denies: Ear pain Nose: denies: Rhinorrhea / runny nose, Congestion Respiratory: reports: Cough. denies: Wheezing GI: denies: Abdominal Pain, Nausea, Vomiting, Diarrhea Skin: denies: Rash Musculoskeletal: denies: Neck pain, Back pain Neurologic: denies: Headache PD PAST MEDICAL HISTORY - Past Medical History Cardiovascular: Hypertension, High cholesterol, Coronary artery disease, Peripheral Vascular Disease, Valve disorder Respiratory: COPD, Pneumonia Neuro: Peripheral neuropathy Endocrine/Autoimmune: HyPOthyroidism GI: GERD, Ulcers [employer]: None : Benign prostate hypertrophy, Nocturia HEENT: Chronic vision loss, Chronic sinusitis Psych: Depression Musculoskeletal: Gout, Fatigue, Scoliosis, Chronic back pain, Other Derm: None, Herpes zoster - Past Surgical History Past Surgical History: Yes General: Appendectomy, Other Cardiovascular: Valve replacement, Vascular surgery HEENT: Tonsil/Adenoidectomy Derm: Skin cancer surgery - Present Medications Home Medications: Ambulatory Orders Medication Instructions Recorded Confirmed Cholecalciferol (Vitamin D3) 1,000 units PO DAILY 12/18/16 06/28/19 [Vitamin D3] Clopidogrel Bisulfate [Plavix] 75 mg PO DAILY 12/18/16 06/28/19 Aspirin/Caffeine [Back-Body Pain 2 tab PO DAILY PRN 04/14/19 04/14/19 500-32.5MG Cplt] Celecoxib [CeleBREX] 200 mg PO DAILY PRN 04/14/19 06/28/19 PARoxetine HCl [Paroxetine HCl] 20 mg PO DAILY 04/14/19 06/28/19 Prednisone 5 mg PO DAILY 04/14/19 06/28/19 diazePAM [Diazepam] 2.5 mg PO QPM PRN 04/14/19 06/28/19 Levothyroxine Sodium 50 mcg PO DAILY 05/04/19 06/28/19 Multivitamin [Multivitamins] 1 tab PO DAILY 05/04/19 06/28/19 Losartan [Cozaar] 50 mg PO DAILY #10 tablet 05/08/19 06/28/19 Cephalexin [Keflex] 500 mg PO BID #14 capsule 06/29/19 HYDROcod/ACETAM 5/325 [[place] 5/325] 1 tab PO Q4HR PRN #20 tablet 06/29/19 Saccharomyces Boulardii [Florastor] 250 mg PO DAILY #7 capsule 06/29/19 Clindamycin Palmitate HCl 300 mg PO Q6H 10 Days #1 soln.recon 06/30/19 [Clindamycin Pediatric] - Allergies Allergies/Adverse Reactions: Allergies Allergy/AdvReac Type Severity Reaction Status Date / Time Latex, Natural Rubber Allergy respiratory Verified 06/30/19 12:02 distress - Social History Does the pt smoke?: No Smoking Status: Never smoker Does the pt drink ETOH?: Yes Does the pt have substance abuse?: No - Immunizations Immunizations are current?: Yes - POLST Patient has POLST: Yes POLST Status: DNR PD ED PE NORMAL - Vitals Vital signs reviewed: Yes - General General: Alert and oriented X 3, No acute distress, Well developed/nourished - HEENT HEENT: PERRL, Moist mucous membranes - Neck Neck: Supple, no meningeal sign - Cardiac Cardiac: RRR, Strong equal pulses - Respiratory Respiratory: No respiratory distress, Clear bilaterally - Abdomen Abdomen: Soft, Non tender, Non distended - Derm Derm: Warm and dry, No rash - Extremities Extremities: No edema - Neuro Neuro: Alert and oriented X 3 - Psych Psych: Normal mood, Normal affect Results - Vitals Vitals: Vital Signs - 24 hr 06/30/19 06/30/19 06/30/19 12:00 12:02 13:11 Temperature 37.9 C H Heart Rate 79 73 Respiratory 20 13 Rate Blood Pressure 129/83 H 139/72 H O2 Saturation 86 L 94 98 06/30/19 13:29 Temperature Heart Rate 74 Respiratory 12 Rate Blood Pressure 139/72 H O2 Saturation 98 Oxygen O2 Source [Without Activity] Nasal cannula O2 Source Nasal cannula - Labs Labs: Laboratory Tests 06/30/19 06/30/19 06/30/19 12:32 12:32 12:32 WBC 9.1 RBC 3.23 L Hgb 9.8 L Hct 32.7 L MCV 101.2 H MCH 30.3 MCHC 30.0 L RDW 14.9 Plt Count 282 MPV 11.0 Neut # (Auto) 7.7 H Lymph # (Auto) 0.4 L Lyman # (Auto) 0.8 Eos # (Auto) 0.0 Baso # (Auto) 0.0 Absolute Nucleated RBC 0.00 Nucleated RBC % 0.0 Sodium 140 Potassium 4.7 Chloride 100 L Carbon Dioxide 30 Anion Gap 10.0 BUN 24 H Creatinine 1.5 H Estimated GFR (MDRD) 45 L Glucose 106 H Lactic Acid 0.8 Calcium 8.7 Total Bilirubin 0.7 AST 17 ALT 13 Alkaline Phosphatase 53 Total Protein 5.9 L Albumin 3.0 L Globulin 2.9 Albumin/Globulin Ratio 1.0 Lipase 23 Urine Color Urine Clarity Urine pH Ur Specific [place] Urine Protein Urine Glucose (UA) Urine Ketones Urine Occult Blood Urine Nitrite Urine Bilirubin Urine Urobilinogen Ur Leukocyte Esterase Urine RBC Urine WBC Ur Squamous Epith Cells Urine Bacteria Urine Casts Ur Microscopic Review Urine Culture Comments 06/30/19 15:00 WBC RBC Hgb Hct MCV MCH MCHC RDW Plt Count MPV Neut # (Auto) Lymph # (Auto) Lyman # (Auto) Eos # (Auto) Baso # (Auto) Absolute Nucleated RBC Nucleated RBC % Sodium Potassium Chloride Carbon Dioxide Anion Gap BUN Creatinine Estimated GFR (MDRD) Glucose Lactic Acid Calcium Total Bilirubin AST ALT Alkaline Phosphatase Total Protein Albumin Globulin Albumin/Globulin Ratio Lipase Urine Color YELLOW Urine Clarity CLEAR Urine pH 5.5 Ur Specific [place] 1.025 Urine Protein 30 H Urine Glucose (UA) NEGATIVE Urine Ketones 15 H Urine Occult Blood NEGATIVE Urine Nitrite NEGATIVE Urine Bilirubin NEGATIVE Urine Urobilinogen 0.2 (NORMAL) Ur Leukocyte Esterase NEGATIVE Urine RBC None Seen Urine WBC 0-3 Ur Squamous Epith Cells NONE SEEN Urine Bacteria None Seen Urine Casts 3-5 Hyaline Casts Ur Microscopic Review INDICATED Urine Culture Comments NOT INDICATED - Rads (name of study) cxr Radiology: Prelim report reviewed, EMP read contemporaneously, See rad report (Interval worsening of the right basilar consolidation consistent with pneumonia Interval improvement in the previous left basilar consolidation. No other acute abnormality.) PD MEDICAL DECISION MAKING - ED course Complexity details: reviewed results, re-evaluated patient, considered diff erential, d/w patient, d/w family ED course: Patient with continued pneumonia. Thought to be related to aspiration. Will change to clindamycin. He is well-appearing, nontoxic. Feels much better on oxygen and is ambulating without difficulty in the emergency department with his walker. No leukocytosis. Afebrile. Patient and family counseled regarding signs and symptoms for which I believe and urgent re-evaluation would be necessary. Patient with good understanding of and agreement to plan and is comfortable going home at this time This document was made in part using voice recognition software. While efforts are made to proofread this document, sound alike and grammatical errors may occur. Departure - Departure Disposition: 01 Home, Self Care Clinical Impression: Aspiration pneumonia Qualifiers: Aspiration pneumonia type: unspecified Laterality: right Lung location: upper lobe of lung Qualified Code(s): J69.0 - Pneumonitis due to inhalation of food and vomit Condition: Good Instructions: ED Pneumonia Adult Follow-Up: Alexandre Redman MD [Primary Care Provider] - Within 1 week Prescriptions: Clindamycin Palmitate HCl [Clindamycin Pediatric] 300 mg PO Q6H 10 Days #1 soln.recon Comments: Take all antibiotics until gone. Return if you worsen. You can stop the Keflex. You need to wear oxygen at all times. You should use a walker at home too. Discharge Date/Time: 06/30/19 16:51
[2019-06-30 12:41] LABS: BASOPHILS % (AUTO) 0.4 %; EOSINOPHILS % (AUTO) 0.1 %; HGB - HEMOGLOBIN 9.8 g/dL (14.0-18.0); LYMPHOCYTES # (AUTO) 0.4 10^3/uL (1.5-3.5); LYMPHOCYTES % (AUTO) 4.6 %; MEAN CORPUSCULAR HEMOGLOBIN 30.3 pg (27.0-31.0); MEAN CORPUSCULAR VOLUME 101.2 fL (80.0-94.0); MONOCYTES # (AUTO) 0.8 10^3/uL (0.0-1.0); NEUTROPHILS # (AUTO) 7.7 10^3/uL (1.5-6.6); NEUTROPHILS % (AUTO) 85.5 %; PLT - PLATELET COUNT 282 10^3/uL (130-450); RED BLOOD COUNT 3.23 10^6/uL (4.70-6.10); RED CELL DISTRIBUTION WIDTH 14.9 % (12.0-15.0); WHITE BLOOD COUNT 9.1 x10^3/uL (4.8-10.8)
[2019-06-30 12:55] LABS: BILIRUBIN,TOTAL 0.7 mg/dL (0.2-1.0); CALCIUM 8.7 mg/dL (8.5-10.3); CREATININE 1.5 mg/dL (0.6-1.2); TOTAL PROTEIN 5.9 g/dL (6.7-8.2)
[2019-06-30] MEDS ORDERED: SODIUM CHLORIDE 0.9% 1,000 ML IV ONE (13:03)
[2019-06-30 13:12] VITALS: BP 139/72
--- NOTE | 2019-06-30 13:14 | XRAY Report ---
Reason: recent pneumonia, fever, weakness Procedure Date: 06/30/2019 Accession Number: [id number] / [id number] Procedure: XR - Chest 1 View X-Ray CPT Code: 79109 FULL RESULT: EXAM: CHEST RADIOGRAPHY EXAM DATE: 06/30/2019 12:42 PM. CLINICAL HISTORY: Follow-up pneumonia. COMPARISON: CHEST 1 VIEW 06/27/2019 9:10 PM. TECHNIQUE: 1 view. FINDINGS: Lungs/Pleura: There has been interval worsening in the right basilar consolidation and volume loss. There has been interval improvement in the previously present left basilar consolidation. The upper lung zones remain clear. No pleural effusions. Mediastinum: No cardiac enlargement. Prosthetic aortic valve again noted. Dextroconvex lower thoracic scoliosis again noted. Other: None. IMPRESSION: 1. There has been interval worsening in the right basilar consolidation consistent with pneumonia. 2. There has been interval improvement in the previous left basilar consolidation. 3. No other acute abnormality. RADIA
[2019-06-30 16:06] LABS: GLUCOSE, URINE (UA) NEGATIVE (NEGATIVE); KETONES,URINE (UA) 15 mg/dL (NEGATIVE); LEUKOCYTE ESTERASE, URINE NEGATIVE (NEGATIVE); NITRITE,URINE NEGATIVE (NEGATIVE); OCCULT BLOOD,URINE NEGATIVE (NEGATIVE); PH,URINE 5.5 PH (5.0-7.5); PROTEIN,URINE 30 mg/dL (NEGATIVE); UROBILINOGEN,URINE 0.2 (NORMAL) E.U./dL (NORMAL)
[2019-06-30 16:10] LABS: CLARITY,URINE CLEAR (CLEAR)
[2019-06-30 16:11] LABS: BILIRUBIN,URINE NEGATIVE (NEGATIVE); ICTOTEST,URINE NEGATIVE
[2019-06-30 16:19] LABS: BACTERIA,URINE None Seen /HPF (None Seen); CASTS, URINE 3-5 Hyaline Casts /LPF; RBC,URINE None Seen /HPF (0-5); SQUAMOUS EPITHELIAL CELL,UR NONE SEEN (<= Few)
== END 2019-06-30 16:51 | disposition home or self-care (01) ==
LOC: ED 11:56
DX: J69.0 Pneumonitis due to inhalation of food and vomit (principal); I10 Essential (primary) hypertension; Z66 Do not resuscitate
CPT/HCPCS: 36415; 71045; 80053; 81001; 81003; 83605; 83690; 85025; 87040; 87086; 96360; 96361; 99284

== ENCOUNTER 2019-07-10 16:00 | Outpatient (CLI) | payer MEDICARE, OTHER ==
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
== END 2019-07-10 16:01 | disposition home or self-care (01) ==
LOC: PC 16:00
PROVIDERS: ATTEND Nurse Practitioner Adult Health
DX: Z51.5 Encounter for palliative care (principal); J96.21 Acute and chronic respiratory failure with hypoxia; R13.10 Dysphagia, unspecified; Z87.01 Personal history of pneumonia (recurrent); R63.4 Abnormal weight loss; G89.29 Other chronic pain; M54.9 Dorsalgia, unspecified; R04.0 Epistaxis; F32.9 Major depressive disorder, single episode, unspecified; I10 Essential (primary) hypertension; Z91.19 Patient's noncompliance with other medical treatment and regimen; J44.9 Chronic obstructive pulmonary disease, unspecified; Z87.891 Personal history of nicotine dependence; Z77.22 Contact with and (suspected) exposure to environmental tobacco smoke (acute) (chronic); E78.00 Pure hypercholesterolemia, unspecified; I25.10 Atherosclerotic heart disease of native coronary artery without angina pectoris; I73.9 Peripheral vascular disease, unspecified; E03.9 Hypothyroidism, unspecified; K21.9 Gastro-esophageal reflux disease without esophagitis; Z87.11 Personal history of peptic ulcer disease; N40.1 Benign prostatic hyperplasia with lower urinary tract symptoms; R35.0 Frequency of micturition; H54.7 Unspecified visual loss; Z95.2 Presence of prosthetic heart valve; J32.9 Chronic sinusitis, unspecified; M10.9 Gout, unspecified; M41.9 Scoliosis, unspecified; M35.3 Polymyalgia rheumatica; Z79.02 Long term (current) use of antithrombotics/antiplatelets; Z79.52 Long term (current) use of systemic steroids; Z79.891 Long term (current) use of opiate analgesic; Z85.810 Personal history of malignant neoplasm of tongue; Z92.3 Personal history of irradiation
CPT/HCPCS: 99350